=== PATIENT | male | born 1935 | race Caucasian/White ===

== ENCOUNTER → 2017-02-10 | Day surgery (SDC) | payer BC ==
[2017-01-14 14:39] VITALS: Ht 170.2 cm; Wt 90.0 kg
[~2017-02-10] VITALS: Ht 170.2 cm; Wt 90.0 kg
[~2017-02-10] MED LIST: 500ML BSS 0.3ML EPI 1:1000PF IRRIG ONE; ACETAMINOPHEN 325 MG TAB PO PRN; AMVISC PLUS 0.8ML SYRINGE INT OCU ONE; ASPCH81X PO; ATROPINE SULFATE 0.1 MG/ML 5ML SYR IV PRN; ATV/2 PO; BETAXOLOL HCL 0.25% OP SUSP PER DROP CHARGE OPL SCH; BISA5TAB PO; BRIMONIDINE TART 0.2% OP SOLN PER DROP CHARGE ONE; BSS FLUSH ONE; CITA40TA4 PO; ENDOCOAT 0.85ML SYRINGE INT OCU ONE; EpHEDrine SULFATE INJ 50 MG/ML AMP IV PRN; EpINEphrine INJ 1MG/ML AMP 1 MG/ML AMP ONE; FENTANYL CITRATE INJ 50 MCG/1 ML 2 ML VIAL IV PRN; FLUMAZENIL 0.1 MG/1 ML 10 ML VIAL IV PRN; GLUC100014 PO; HYDROmorphone INJ 2 MG/ML SYR/VIAL IV PRN; LABETALOL HCL IV 5 MG/ML 20ML IV PRN; LACTATED RINGER'S 1000ML 500 ML IV SCH; LIDOCAINE 4% OP SOLN DROP CHARGE ONE; LIDOCAINE 4% OP SOLN DROP CHARGE OPL SCH; LIDOCAINE HCL 1% MPF 2 ML VIAL ONE; MEPERIDINE HCL 25 MG/ML CARP IV PRN; MIDAZOLAM HCL 1 MG/ML 2ML VIAL ONE; MIX: 4ML BSS 1ML EPI 1:1000 PF INSTIL ONE; MOXIFLOXACIN OPH SOLN PER DROP CHARGE ONE; MULT-506 PO; NALOXONE HCL 0.4 MG/1 ML VIAL/CARP IV PRN; NURSING VERBAL MED ORDER ONE; OCUCOAT 1 ML SOLN IO ONE; ONDANSETRON INJ 2 MG/ML 2 ML VIAL IV PRN; PANT40TA PO; PHENYLEPHRINE 100MCG/ML 5ML SYR IV PRN; POVIDONE-IODINE OP SOLN 30 ML BTL ONE; PROPARACAINE 0.5% OP SOLN PER DROP CHARGE OPL SCH; SIMV40TA2 PO; SPRIN/30 INH; TELM40TA11 PO; TOBRAMYCIN/DEXAMETHASONE OPH OINT PER APPLN CHARGE ONE
[2017-02-10] MEDS: TROPICAMIDE 1% OP SOLN PER DROP CHARGE OPL SCH ×2 (07:27→07:32)
--- NOTE | 2017-02-10 07:27 | History & Physical Bridge - [place] ---
H&P Re-Evaluation Bridge Note: I have examined the patient, reviewed the History & Physical and in the interval since the performance of the History & Physical I have noted the following changes of clinical significance: No changes noted
[2017-02-10] MEDS: CYCLOPENTOLATE HCL 1% OP SOLN PER DROP CHARGE OPL SCH ×2 (07:28→07:33)
[2017-02-10] MEDS: MOXIFLOXACIN OPH SOLN PER DROP CHARGE OPL SCH ×2 (07:29→07:39)
[2017-02-10] MEDS: PHENYLEPHRINE HCL 2.5% OP SOLN PER DROP CHARGE OPL SCH ×2 (07:31→07:36)
--- NOTE | 2017-02-10 08:20 | Discharge Instructions-SurgCtr ---
Discharge Instructions Date of Service Feb 10, 2017. Visit Reason for Visit: Cataract Left Eye Discharge Discharge Diagnosis / Problem: lens implant left eye Discharge Goals Goal(s): Improve function Activity Recommendations Activity Limitations: resume your previous activity Lifting Limitations: no more than 10 pounds Exercise/Sports Limitations: gradually increase as tolerated May Resume Sexual Activity: when tolerated Shower/Bathe: tomorrow Driving or Machine Use: resume 1 day after discharge Anesthesia . Post Anesthesia Instructions: If you have had General Anesthesia or IV Sedation: * Do not drive today. * Resume driving when surgeon permits. * Do not make important decisions or sign legal documents today. * Call surgeon for: 1. Temperature elevations greater than 101 degrees F. 2. Uncontrollable pain. 3. Excessive bleeding. 4. Persistent nausea and vomiting. 5. Medication intolerance (nausea, vomiting or rash). * For nausea and vomiting use only clear liquids such as: tea, soda, bouillon until nausea subsides, then gradually increase diet as tolerated. * If you have any concerns or questions, call your surgeon's office. If physician is unavailable and it is an emergency, call 911 or go to the nearest emergency room. . Instructions / Follow-Up Instructions / Follow-Up ACTIVITY RECOMMENDATIONS: * Light activities. * Mild irritation and blurred vision are common for the first few days. * You may walk outside, read, watch television. * Redness around the white part of the eye is common. MEDICATIONS: Resume previous medications unless instructed otherwise by your surgeon. Start all eye drops at 1 pm today: * Eye drops (today and tomorrow): Prednisone - one drop in operative eye every 3 hours while awake Ofloxacin - one drop in operative eye every 3 hours while awake SPECIAL CARE INSTRUCTIONS: * Tape plastic shield over eye to sleep at night. Call your doctor at with any concerns or problems. FOLLOW UP VISIT: Follow-up with Dr Gilmore at [place] office as scheduled. Diet Recommendations Home Diet: no limitations Procedures Procedures Performed: cataract extraction with lens implant Pending Studies Studies pending at discharge: no Medical Emergencies . Who to Call and When: Medical Emergencies: If at any time you feel your situation is an emergency, please call 911 immediately. . Non-Emergent Contact Non-Emergency issues call your: Rock Cutter Call Non-Emergent contact if: your pain is not controlled [phone] . . "Provider Documentation" section prepared by Rogelio Gilmore. .
--- NOTE | 2017-02-10 08:22 | [facility] Operative Report ---
Operative Report Date of Service Feb 10, 2017. Operative Report 1. PREOPERATIVE DIAGNOSIS: Senile nuclear cataract, left eye. 2. POSTOPERATIVE DIAGNOSIS: Senile nuclear cataract, left eye. 3. PROCEDURE: Phacoemulsification of left cataract with posterior chamber lens implant, type Bausch & Lomb, model Hoya [id number], power +23.0 diopters. ANESTHESIA: Local standby. SURGEON: Dr. Gilmore. COMPLICATIONS: None. OPERATING TIME: 10 minutes. 4. OPERATION AND FINDINGS: DESCRIPTION OF PROCEDURE: The left pupil was dilated. The anesthetic was administered using a topical technique. The left eye was prepped and draped. A speculum was placed. A clear corneal incision was formed. The chamber was filled with Amvisc Plus and Endocoat. Epinephrine solution was used. A paracentesis was placed. A capsulorrhexis was performed. The nucleus was hydrodissected. The lens was removed with phacoemulsification. Time was 5.82 seconds. The aspiration unit was used to remove the cortex. The capsule was filled with Amvisc Plus. The lens implant was folded and placed into the capsule. The incision was hydrated. The Amvisc was aspirated. The wound was secure. The chamber was deep. The pupil was round. Brimonidine, TobraDex ointment and Vigamox solution were placed. The speculum was removed. The patient was returned to the Recovery Room in stable condition. I attest to the content of the Intraoperative Record and any orders documented therein. Any exceptions are noted below. The scribe's documentation has been prepared in my presence, under my direction and personally reviewed by me in its entirety. I confirm that the note above accurately reflects all work, treatment, procedures, and medical decision making performed by me. I personally scribed for Rogelio Gilmore M.D. (HAJA) on 02/10/17 at 08:22. Electronically submitted by Indira Iraheta ([email or web address]).
[2017-02-10 08:23] VITALS: TEMP 36.6
[2017-02-10 08:43] VITALS: BP 123/61; PULSE 54; O2SAT 97
--- NOTE | 2017-02-10 08:48 | Anesthesia Progress Nt - [facility] ---
Anesthesia Post Op Note Date & Time Feb 10, 2017 at 08:47 Vital Signs Pain Intensity: 0 Vital Signs Past 12 Hours Date Time Temp Pulse Resp B/P (MAP) Pulse Ox O2 Delivery O2 Flow Rate FiO2 02/10/17 08:43 54 16 123/61 (81) 97 Room Air 02/10/17 08:23 36.6 56 16 123/63 (83) 96 Room Air 02/10/17 07:13 36.5 65 16 120/74 (89) 97 Room Air Notes Mental Status: alert / awake / arousable, participated in evaluation Pt Amnestic to Procedure: Yes Nausea / Vomiting: adequately controlled Pain: adequately controlled Airway Patency, RR, SpO2: stable & adequate BP & HR: stable & adequate Hydration State: stable & adequate Anesthetic Complications: no major complications apparent
== END | disposition home or self-care (01) ==
LOC: X.SURG 06:58
PROVIDERS: ATTEND Specialist
DX: H25.12 Age-related nuclear cataract, left eye (principal); I10 Essential (primary) hypertension; I51.9 Heart disease, unspecified; Z79.82 Long term (current) use of aspirin

== ENCOUNTER → 2017-03-10 | Day surgery (SDC) | payer BC ==
[2017-03-03 14:52] VITALS: Ht 170.2 cm; Wt 87.3 kg
[~2017-03-10] VITALS: Ht 170.2 cm; Wt 87.3 kg
[~2017-03-10] MED LIST changes: -BETAXOLOL HCL 0.25% OP SUSP PER DROP CHARGE OPL SCH; +BETAXOLOL HCL 0.25% OP SUSP PER DROP CHARGE OPR SCH; -EpHEDrine SULFATE INJ 50 MG/ML AMP IV PRN; -FENTANYL CITRATE INJ 50 MCG/1 ML 2 ML VIAL IV PRN; -FLUMAZENIL 0.1 MG/1 ML 10 ML VIAL IV PRN; -HYDROmorphone INJ 2 MG/ML SYR/VIAL IV PRN; -LABETALOL HCL IV 5 MG/ML 20ML IV PRN; -LIDOCAINE 4% OP SOLN DROP CHARGE OPL SCH; +LIDOCAINE 4% OP SOLN DROP CHARGE OPR SCH; -MEPERIDINE HCL 25 MG/ML CARP IV PRN; -NALOXONE HCL 0.4 MG/1 ML VIAL/CARP IV PRN; -NURSING VERBAL MED ORDER ONE; +OFLO0.3S OPR; -ONDANSETRON INJ 2 MG/ML 2 ML VIAL IV PRN; -PHENYLEPHRINE 100MCG/ML 5ML SYR IV PRN; +PRED1SUS3 OPR; -PROPARACAINE 0.5% OP SOLN PER DROP CHARGE OPL SCH; +PROPARACAINE 0.5% OP SOLN PER DROP CHARGE OPR SCH
[2017-03-10] MEDS: PHENYLEPHRINE HCL 2.5% OP SOLN PER DROP CHARGE OPR SCH ×2 (09:03→09:08)
[2017-03-10] MEDS: TROPICAMIDE 1% OP SOLN PER DROP CHARGE OPR SCH ×2 (09:04→09:09)
[2017-03-10] MEDS: CYCLOPENTOLATE HCL 1% OP SOLN PER DROP CHARGE OPR SCH ×2 (09:05→09:10)
[2017-03-10] MEDS: MOXIFLOXACIN OPH SOLN PER DROP CHARGE OPR SCH ×2 (09:06→09:16)
--- NOTE | 2017-03-10 10:18 | Discharge Instructions-SurgCtr ---
Discharge Instructions Date of Service Mar 10, 2017. Visit Reason for Visit: Cataract Right Eye Discharge Discharge Diagnosis / Problem: lens implant right eye Discharge Goals Goal(s): Improve function Activity Recommendations Activity Limitations: resume your previous activity Lifting Limitations: no more than 10 pounds Exercise/Sports Limitations: gradually increase as tolerated May Resume Sexual Activity: when tolerated Shower/Bathe: tomorrow Driving or Machine Use: resume 1 day after discharge Anesthesia . Post Anesthesia Instructions: If you have had General Anesthesia or IV Sedation: * Do not drive today. * Resume driving when surgeon permits. * Do not make important decisions or sign legal documents today. * Call surgeon for: 1. Temperature elevations greater than 101 degrees F. 2. Uncontrollable pain. 3. Excessive bleeding. 4. Persistent nausea and vomiting. 5. Medication intolerance (nausea, vomiting or rash). * For nausea and vomiting use only clear liquids such as: tea, soda, bouillon until nausea subsides, then gradually increase diet as tolerated. * If you have any concerns or questions, call your surgeon's office. If physician is unavailable and it is an emergency, call 911 or go to the nearest emergency room. . Instructions / Follow-Up Instructions / Follow-Up ACTIVITY RECOMMENDATIONS: * Light activities. * Mild irritation and blurred vision are common for the first few days. * You may walk outside, read, watch television. * Redness around the white part of the eye is common. MEDICATIONS: Resume previous medications unless instructed otherwise by your surgeon. Start all eye drops at 1 pm today: * Eye drops (today and tomorrow): Prednisone - one drop in operative eye every 3 hours while awake Ofloxacin - one drop in operative eye every 3 hours while awake SPECIAL CARE INSTRUCTIONS: * Tape plastic shield over eye to sleep at night. Call your doctor at with any concerns or problems. FOLLOW UP VISIT: Follow-up with Dr Gilmore at [place] office as scheduled. Diet Recommendations Home Diet: no limitations Procedures Procedures Performed: cataract extraction with lens implant Pending Studies Studies pending at discharge: no Medical Emergencies . Who to Call and When: Medical Emergencies: If at any time you feel your situation is an emergency, please call 911 immediately. . Non-Emergent Contact Non-Emergency issues call your: Seismic Survey Assistant Call Non-Emergent contact if: your pain is not controlled [phone] . . "Provider Documentation" section prepared by Rogelio Gilmore. .
--- NOTE | 2017-03-10 10:21 | [facility] Operative Report ---
Operative Report Date of Service Mar 10, 2017. Operative Report 1. PREOPERATIVE DIAGNOSIS: Senile nuclear cataract, right eye. 2. POSTOPERATIVE DIAGNOSIS: Senile nuclear cataract, right eye. 3. PROCEDURE: Phacoemulsification of right cataract with posterior chamber lens implant, type Bausch & Lomb, model Hoya [id number], power +22.5 diopters. ANESTHESIA: Local standby. SURGEON: Dr. Gilmore. COMPLICATIONS: None. OPERATING TIME: 10 minutes. 4. OPERATION AND FINDINGS: DESCRIPTION OF PROCEDURE: The right pupil was dilated. The anesthetic was administered using a topical technique. The right eye was prepped and draped. A speculum was placed. A clear corneal incision was formed. The chamber was filled with Amvisc Plus and Endocoat. Epinephrine solution was used. A paracentesis was placed. A capsulorrhexis was performed. The nucleus was hydrodissected. The lens was removed with phacoemulsification. Time was 3.99 seconds. The aspiration unit was used to remove the cortex. The capsule was filled with Amvisc Plus. The lens implant was folded and placed into the capsule. The incision was hydrated. The Amvisc was aspirated. The wound was secure. The chamber was deep. The pupil was round. Brimonidine, TobraDex ointment and Vigamox solution were placed. The speculum was removed. The patient was returned to the Recovery Room in stable condition. I attest to the content of the Intraoperative Record and any orders documented therein. Any exceptions are noted below. The scribe's documentation has been prepared in my presence, under my direction and personally reviewed by me in its entirety. I confirm that the note above accurately reflects all work, treatment, procedures, and medical decision making performed by me. I personally scribed for Rogelio Gilmore M.D. ([email or web address]) on 03/10/17 at 10:21. Electronically submitted by Indira Iraheta ([email or web address]).
[2017-03-10 10:23] VITALS: TEMP 36.5
--- NOTE | 2017-03-10 10:34 | Anesthesiology Progress Note ---
Anesthesia Post Op Note Date & Time Mar 10, 2017 at 10:34 Vital Signs Pain Intensity: 0 Vital Signs Past 12 Hours Date Time Temp Pulse Resp B/P (MAP) Pulse Ox O2 Delivery O2 Flow Rate FiO2 03/10/17 08:53 36.5 75 16 112/73 (86) 98 Room Air Notes Mental Status: alert / awake / arousable, participated in evaluation Nausea / Vomiting: adequately controlled Pain: adequately controlled Airway Patency, RR, SpO2: stable & adequate BP & HR: stable & adequate Hydration State: stable & adequate Anesthetic Complications: no major complications apparent
[2017-03-10 10:40] VITALS: BP 145/81; PULSE 60; O2SAT 96
== END | disposition home or self-care (01) ==
LOC: X.SURG 08:17
PROVIDERS: ATTEND Specialist
DX: H25.11 Age-related nuclear cataract, right eye (principal); I10 Essential (primary) hypertension; E78.5 Hyperlipidemia, unspecified; J44.9 Chronic obstructive pulmonary disease, unspecified; M19.90 Unspecified osteoarthritis, unspecified site; K21.9 Gastro-esophageal reflux disease without esophagitis; K44.9 Diaphragmatic hernia without obstruction or gangrene; E66.9 Obesity, unspecified; Z79.82 Long term (current) use of aspirin; Z98.42 Cataract extraction status, left eye; F32.9 Major depressive disorder, single episode, unspecified; F17.200 Nicotine dependence, unspecified, uncomplicated

== ENCOUNTER 2017-08-20 14:39 | Emergency (ER) | payer BC ==
[~2017-08-20] VITALS: Ht 175.3 cm; Wt 84.0 kg
[~2017-08-20 14:39] MED LIST changes: -500ML BSS 0.3ML EPI 1:1000PF IRRIG ONE; -ACETAMINOPHEN 325 MG TAB PO PRN; -AMVISC PLUS 0.8ML SYRINGE INT OCU ONE; -ATROPINE SULFATE 0.1 MG/ML 5ML SYR IV PRN; -BETAXOLOL HCL 0.25% OP SUSP PER DROP CHARGE OPR SCH; -BRIMONIDINE TART 0.2% OP SOLN PER DROP CHARGE ONE; -BSS FLUSH ONE; -ENDOCOAT 0.85ML SYRINGE INT OCU ONE; -EpINEphrine INJ 1MG/ML AMP 1 MG/ML AMP ONE; -LACTATED RINGER'S 1000ML 500 ML IV SCH; -LIDOCAINE 4% OP SOLN DROP CHARGE ONE; -LIDOCAINE 4% OP SOLN DROP CHARGE OPR SCH; -LIDOCAINE HCL 1% MPF 2 ML VIAL ONE; -MIDAZOLAM HCL 1 MG/ML 2ML VIAL ONE; -MIX: 4ML BSS 1ML EPI 1:1000 PF INSTIL ONE; -MOXIFLOXACIN OPH SOLN PER DROP CHARGE ONE; -OCUCOAT 1 ML SOLN IO ONE; -POVIDONE-IODINE OP SOLN 30 ML BTL ONE; -PROPARACAINE 0.5% OP SOLN PER DROP CHARGE OPR SCH; -TOBRAMYCIN/DEXAMETHASONE OPH OINT PER APPLN CHARGE ONE
[2017-08-20 14:47] VITALS: TEMP 36.5; Ht 175.3 cm; Wt 84.0 kg
[2017-08-20] MEDS ORDERED: SODIUM CHLORIDE 0.9% 1000ML 1,000 ML IV STA (15:33)
--- NOTE | 2017-08-20 15:38 | EMERGENCY ROOM VISIT NOTE ---
History Report prepared by [place]: Sai Beckman Under the Supervision of: Dr. Rogelio Tracey D.O. First contact with patient: 15:29 Chief Complaint: URINARY SYMPTOMS Stated Complaint: URINARY PROBLEMS Nursing Triage Summary: pt unable to void since last pm and no bm x 3 days. denies any vomiting. having abd pains. no hx of same. History of Present Illness The patient is an 82 year old male who presents to the Emergency Room with complaints of a persistent inability to void that started last night. Per the patient's , the patient has not urinated since last night, and even last night the output was very little. The patient states that she feels like he has to go, and he is having associated abdominal pain and distension. He notes that he has never seen a urologist before. The patient's called the patient's primary care office, and talked to a nurse who told the patient to come here to get catheterized. The patient adds that he has not had a bowel movement in 3 days. He denies any nausea, vomiting, chest pain, shortness of breath, fevers, chills, numbness, or new weakness in his legs. He states that he has not been eating or drinking okay recently. The patient notes no history of prostate problems. Source of History: patient, spouse/significant other Onset: Last night Position: other (global) Symptom Intensity: has not urinated since last night Quality: other (inability to urinate) Timing: other (persistent) Associated Symptoms: + abdominal pain (and distension), No fevers, No chills , No chest pain, No SOB, No nausea, No vomiting, No weakness (no new), No numbness Note: Has not had a bowel movement in 3 days. Review of Systems See HPI for pertinent positives & negatives. A total of 10 systems reviewed and were otherwise negative. Past Medical & Surgical Medical Problems: (1) Abdom Aortic Aneurysm (2) Cerebral Atherosclerosis (3) Hypertension Nos (4) Irritable Bowel Syndrome (5) Long-Term (Current) Use Of Aspirin (6) Osteoarthro Nos-Oth Site Family History Patient reports no known family medical history. Social History Smoking Status: Current Every Day Smoker Alcohol Use: occasionally Marital Status: Housing Status: lives with significant other Occupation Status: retired Current/Historical Medications Scheduled Aspirin (Aspirin Chewable), 81 MG PO QAM Bisacodyl (Ex-Lax Ultra), 1 TAB PO HS Ciprofloxacin Hcl (Cipro), 500 MG PO BID Citalopram (Citalopram Hydrobromide), 1 TAB PO QAM Glucosamine Sulfate (Glucosamine), 1 CAP PO QAM Ibuprofen (Advil), 400 MG PO QAM Lorazepam (Ativan), 1 TAB PO TID Multivitamin (Multivitamin), 1 TAB PO QAM Pantoprazole (Protonix), 40 MG PO BID Polyethylene Glycol 3350 (Miralax), 17 GM PO DAILY Simvastatin (Zocor), 80 MG PO QPM Tamsulosin Hcl (Flomax), 0.4 MG PO DAILY Telmisartan (Micardis), 20 MG PO QAM Allergies Coded Allergies: Iodinated Diagnostic Agents (Verified Allergy, Unknown, HIVES, 03/10/17) Pseudoephedrine (Verified Allergy, Unknown, UNSURE OF RX?, 03/10/17) Sulfa Antibiotics (Verified Allergy, Unknown, DOES NOT KNOW RX, 03/10/17) Physical Exam Vital Signs Date Time Temp Pulse Resp B/P (MAP) Pulse Ox O2 Delivery O2 Flow Rate FiO2 08/20/17 17:50 93 18 145/68 91 Room Air 08/20/17 17:02 79 18 133/64 94 Room Air 08/20/17 14:47 36.5 118 16 111/61 95 Room Air Physical Exam GENERAL: Patient is awake, alert, and in no acute distress. Patient is resting comfortably and showing no signs of anxiety EYES: The conjunctivae are clear. The pupils are round and reactive. EARS, NOSE, MOUTH AND THROAT: The nose is without any evidence of any deformity. Mucous membranes are dry tongue is midline NECK: The neck is nontender and supple. RESPIRATORY: Normal respiratory effort is noted there is no evidence of wheezing rhonchi or rales CARDIOVASCULAR: Regular rate and rhythm noted there no murmurs rubs or gallops normal S1 normal S2 GASTROINTESTINAL: The abdomen is moderately distended with suprapubic tenderness to palpation. No guarding or rigidity. MUSCULOSKELETAL/EXTREMITIES: There is no evidence of gross deformity full range of motion is noted in the hips and shoulders SKIN: There is no obvious evidence of any rash. There are no petechiae, pallor or cyanosis noted. NEUROLOGIC: Patient is awake alert and oriented x3 strength is symmetric patellar reflexes are 2+ bilaterally Medical Decision & Procedures ER Provider Diagnostic Interpretation: CT results as stated below per my review and radiologist interpretation. ABD/PELVIS NO IV OR ORAL CONT CLINICAL HISTORY: 82 years-old Male presenting with urinary symptoms. TECHNIQUE: Multidetector CT of the abdomen and pelvis was performed without the use of intravenous contrast. IV contrast: None. A dose lowering technique was used consistent with the principles of ALARA (as low as reasonably achievable). COMPARISON: 09/25/2015. CT DOSE (mGy.cm): The estimated cumulative dose is 422.11 mGy.cm. FINDINGS: Rotoprinter topogram: Surgical clips project over the mid abdomen. Lung bases: Minimal basilar opacities, likely atelectasis. Calcified pleural plaque evident on the right. Top normal heart size. No pericardial or pleural effusion. Liver: Normal morphology. Density consistent with hepatic steatosis. Biliary: No gross biliary ductal dilatation allowing for noncontrast technique. Normal gallbladder. Pancreas: Mild parenchymal atrophy. Spleen: Normal. Adrenal glands: Normal. Kidneys and ureters: Extensive perinephric fat stranding, nonspecific and unchanged from prior. No nephrolithiasis or hydronephrosis. Well-defined hypodensity arising from the lower pole of the left kidney likely cyst. Ureters normal. Bladder: Incompletely evaluated secondary to underdistention. A Huertas catheter decompresses the urinary bladder. Significant bladder wall irregularity could suggest underlying wall thickening or diverticula. Pelvic organs: Prostate enlargement likely secondary to benign prostatic hyperplasia. Bowel: Moderate stool burden in the rectum and sigmoid colon. Mild stool burden more proximally. The appendix is normal. No bowel obstruction. Peritoneal cavity: No free fluid or intraperitoneal gas. Lymph nodes: No enlarged lymph nodes in the abdomen or pelvis. Vasculature: Atherosclerosis of the normal caliber abdominal aorta. Surgical clips noted in the aortocaval region immediately inferior to the renal vessels. This is unchanged. Abdominal wall: Normal. Musculoskeletal: Degenerative changes of the spine. IMPRESSION: 1. The bladder is decompressed with a Huertas catheter. However, there is suggestion of extensive bladder wall thickening and/or bladder diverticula. This could be an indication of chronic bladder outlet obstruction in the setting of prostatomegaly. Correlate with urinalysis to exclude infection. 2. No nephrolithiasis or hydronephrosis. 3. Moderate stool burden in the rectum and sigmoid colon. Disimpaction suggested. 4. Hepatic steatosis. 5. Calcified pleural plaques suggest a history of asbestos exposure. Electronically signed by: Liam King M.D. 08/20/2017 5:03 PM Dictated Date/Time: 08/20/2017 4:56 PM Laboratory Results 08/20/17 16:30 Red Blood Count 4.52, Mean Corpuscular Volume 91.4, Mean Corpuscular Hemoglobin 32.1, Mean Corpuscular Hemoglobin Concent 35.1, Mean Platelet Volume 9.5, Neutrophils (%) (Auto) 93.3, Lymphocytes (%) (Auto) 3.3, Monocytes (%) (Auto) 3.1, Eosinophils (%) (Auto) 0.0, Basophils (%) (Auto) 0.1, Neutrophils # (Auto) 14.86, Lymphocytes # (Auto) 0.52, Monocytes # (Auto) 0.50, Eosinophils # (Auto) 0.00, Basophils # (Auto) 0.02 08/20/17 16:30 Test 08/20/17 16:12 08/20/17 16:30 Urine Color YELLOW Urine Appearance CLEAR (CLEAR) Urine pH 7.5 (4.5-7.5) Urine Specific [place] 1.014 (1.000-1.030) Urine Protein NEG (NEG) Urine Glucose (UA) NEG (NEG) Urine Ketones NEG (NEG) Urine Occult Blood NEG (NEG) Urine Nitrite NEG (NEG) Urine Bilirubin NEG (NEG) Urine Urobilinogen NEG (NEG) Urine Leukocyte Esterase NEG (NEG) White Blood Count 15.93 K/uL (4.8-10.8) Red Blood Count 4.52 M/uL (4.7-6.1) Hemoglobin 14.5 g/dL (14.0-18.0) Hematocrit 41.3 % (42-52) Mean Corpuscular Volume 91.4 fL (80-100) Mean Corpuscular Hemoglobin 32.1 pg (25-34) Mean Corpuscular Hemoglobin Concent 35.1 g/dl (32-36) Platelet Count 207 K/uL (130-400) Mean Platelet Volume 9.5 fL (7.4-10.4) Neutrophils (%) (Auto) 93.3 % Lymphocytes (%) (Auto) 3.3 % Monocytes (%) (Auto) 3.1 % Eosinophils (%) (Auto) 0.0 % Basophils (%) (Auto) 0.1 % Neutrophils # (Auto) 14.86 K/uL (1.4-6.5) Lymphocytes # (Auto) 0.52 K/uL (1.2-3.4) Monocytes # (Auto) 0.50 K/uL (0.11-0.59) Eosinophils # (Auto) 0.00 K/uL (0-0.5) Basophils # (Auto) 0.02 K/uL (0-0.2) RDW Standard Deviation 42.8 fL (36.4-46.3) RDW Coefficient of Variation 12.8 % (11.5-14.5) Immature Granulocyte % (Auto) 0.2 % Immature Granulocyte # (Auto) 0.03 K/uL (0.00-0.02) Anion Gap 4.0 mmol/L (3-11) Est Creatinine Clear Calc Drug Dose 33.3 ml/min Estimated GFR () 42.9 Estimated GFR (Non- 37.0 BUN/Creatinine Ratio 11.4 (10-20) Calcium Level 9.7 mg/dl (8.5-10.1) Total Bilirubin 1.5 mg/dl (0.2-1) Aspartate Amino Transf (AST/SGOT) 15 U/L (15-37) Alanine Aminotransferase (ALT/SGPT) 20 U/L (12-78) Alkaline Phosphatase 42 U/L (45-117) Total Protein 6.7 gm/dl (6.4-8.2) Albumin 3.7 gm/dl (3.4-5.0) Globulin 3.0 gm/dl (2.5-4.0) Albumin/Globulin Ratio 1.2 (0.9-2) Date/Time Source Procedure Growth Status 08/20/17 16:12 Urine,Catheterized Urine Culture - Final NO GROWTH - LESS THAN 1,000 COLONIES/ML Complete Laboratory results per my review. Medications Administered Medications (Trade) Dose Ordered Sig/Romy Route Start Time Stop Time Status Last Admin Dose Admin Sodium Chloride 1,000 ml @ 999 mls/hr Q1H1M STAT IV 08/20/17 15:33 08/20/17 16:33 DC 08/20/17 15:33 999 MLS/HR Tamsulosin HCl (Flomax Cap) 0.4 mg NOW ONCE PO 08/20/17 16:30 08/20/17 16:31 DC 08/20/17 16:30 0.4 MG Ciprofloxacin (Cipro Tab) 500 mg NOW STAT PO 08/20/17 17:42 08/20/17 17:43 DC 08/20/17 17:52 500 MG ED Course 1532: The patient was evaluated in room C8. A complete history and physical examination were performed. 1533: NSS 1000 ml @ 999 mls/hr IV. 1630: Flomax Cap 0.4 mg PO. 1740: Upon reevaluation, the patient is resting. I discussed the results and treatment plan with him. He verbalized agreement of the treatment plan. He was discharged home. 174: Cipro Tab 500 mg PO. Medical Decision Differential diagnosis: Etiologies such as appendicitis, diverticulitis, PUD, biliary pathology, UTI, pancreatitis, obstruction, mesenteric ischemia, aortic pathology, infections, inflammatory bowel disease, renal colic, as well as others were entertained. Nursing notes reviewed. Additional history is obtained from the patient's significant other. The patient is an 82-year-old male who presented to the emergency department for an evaluation of difficulty urinating. The patient was found to be in urinary retention. He has an enlarged prostate. He was also found to have significant fecal impaction. Likely the impaction is secondary to the patient' s urinary retention. He was treated with Huertas catheter. He was also treated with IV fluids. The patient was able to have a large bowel movement after the Huertas catheter was placed. He was encouraged to follow-up with urology for reevaluation. He was also started on Flomax as well as an antibiotic. He was also encouraged to use a leg bag and return to the emergency department immediately if symptoms change worsen or the need arises. Medication Reconcilliation Current Medication List: was personally reviewed by me Blood Pressure Screening Patient's blood pressure: Normal blood pressure Impression Primary Impression: Urinary retention Additional Impressions: Fecal impaction Enlarged prostate Scribe Attestation The scribe's documentation has been prepared under my direction and personally reviewed by me in its entirety. I confirm that the note above accurately reflects all work, treatment, procedures, and medical decision making performed by me. Departure Information Dispostion Home / Self-Care Prescriptions Polyethylene Glycol 3350 (MIRALAX) 1 Pow Pow 17 GM PO DAILY, #527 GM Prov: Rogelio Tracey, DO 08/20/17 Tamsulosin Hcl (FLOMAX) 0.4 Mg Cap 0.4 MG PO DAILY, #30 CAP Prov: Rogelio Tracey, DO 08/20/17 Ciprofloxacin Hcl (CIPRO) 500 Mg Tab 500 MG PO BID, #20 TAB Prov: Rogelio Tracey, DO 08/20/17 Referrals Marlin Lew M.D. (MEDICAL) (PCP) Patient Instructions Constipation, ED Catheter Care Huertas, ED Retention Urinary Male, [facility] Additional Instructions Schedule a follow-up appointment with the urologist. Continue all medications as prescribed. Drink plenty clear liquids. Return to the emergency department immediately if symptoms change worsen or the need arises. Problem Qualifiers
[2017-08-20] MEDS ORDERED: TAMSULOSIN HCL 0.4 MG CAP PO ONE (16:30)
[2017-08-20 16:40] LABS: BASO % 0.1 %; BASO ABS # 0.02 K/uL (0-0.2); HEMATOCRIT 41.3 % (42-52); HEMOGLOBIN 14.5 g/dL (14.0-18.0); IG# 0.03 K/uL (0.00-0.02); LYMPH % 3.3 %; LYMPH ABS # 0.52 K/uL (1.2-3.4); MEAN CELL VOLUME 91.4 fL (80-100); MEAN CORPUSCULAR HEMOGLOBIN 32.1 pg (25-34); MEAN CORPUSCULAR HGB CONC 35.1 g/dl (32-36); MEAN PLATELET VOLUME 9.5 fL (7.4-10.4); MONO % 3.1 %; NEUT % 93.3 %; NEUT ABS # 14.86 K/uL (1.4-6.5); PLATELET COUNT 207 K/uL (130-400); RED CELL DISTRIBUTION WIDTH CV 12.8 % (11.5-14.5); RED CELL DISTRIBUTION WIDTH SD 42.8 fL (36.4-46.3); WHITE BLOOD COUNT 15.93 K/uL (4.8-10.8)
[2017-08-20] MEDS ORDERED: IBUP-1050 PO (16:40)
[2017-08-20 16:57] LABS: ALBUMIN 3.7 gm/dl (3.4-5.0); CALCIUM 9.7 mg/dl (8.5-10.1); CREATININE 1.68 mg/dl (0.60-1.40); POTASSIUM 4.1 mmol/L (3.5-5.1)
[2017-08-20 17:02] LABS: TOTAL PROTEIN 6.7 gm/dl (6.4-8.2)
--- NOTE | 2017-08-20 17:04 | DIAGNOSTIC IMAGING REPORT ---
ABD/PELVIS NO IV OR ORAL CONT CLINICAL HISTORY: 82 years-old Male presenting with urinary symptoms. TECHNIQUE: Multidetector CT of the abdomen and pelvis was performed without the use of intravenous contrast. IV contrast: None. A dose lowering technique was used consistent with the principles of ALARA (as low as reasonably achievable). COMPARISON: 09/25/2015. CT DOSE (mGy.cm): The estimated cumulative dose is 422.11 mGy.cm. 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 Lung bases: Minimal basilar opacities, likely atelectasis. Calcified pleural plaque evident on the right. Top normal heart size. No pericardial or pleural effusion. Liver: Normal morphology. Density consistent with hepatic steatosis. Biliary: No gross biliary ductal dilatation allowing for noncontrast technique. Normal gallbladder. Pancreas: Mild parenchymal atrophy. Spleen: Normal. Adrenal glands: Normal. Kidneys and ureters: Extensive perinephric fat stranding, nonspecific and unchanged from prior. No nephrolithiasis or hydronephrosis. Well-defined hypodensity arising from the lower pole of the left kidney likely cyst. Ureters normal. Bladder: Incompletely evaluated secondary to underdistention. A Huertas catheter decompresses the urinary bladder. Significant bladder wall irregularity could suggest underlying wall thickening or diverticula. Pelvic organs: Prostate enlargement likely secondary to benign prostatic hyperplasia. Bowel: Moderate stool burden in the rectum and sigmoid colon. Mild stool burden more proximally. The appendix is normal. No bowel obstruction. Peritoneal cavity: No free fluid or intraperitoneal gas. Lymph nodes: No enlarged lymph nodes in the abdomen or pelvis. Vasculature: Atherosclerosis of the normal caliber abdominal aorta. Surgical clips noted in the aortocaval region immediately inferior to the renal vessels. This is unchanged. Abdominal wall: Normal. Musculoskeletal: Degenerative changes of the spine. IMPRESSION: 1. The bladder is decompressed with a Huertas catheter. However, there is suggestion of extensive bladder wall thickening and/or bladder diverticula. This could be an indication of chronic bladder outlet obstruction in the setting of prostatomegaly. Correlate with urinalysis to exclude infection. 2. No nephrolithiasis or hydronephrosis. 3. Moderate stool burden in the rectum and sigmoid colon. Disimpaction suggested. 4. Hepatic steatosis. 5. Calcified pleural plaques suggest a history of asbestos exposure. Electronically signed by: Liam King M.D. 08/20/2017 5:03 PM Dictated Date/Time: 08/20/2017 4:56 PM
[2017-08-20] MEDS ORDERED: CIPROFLOXACIN 500 MG TAB PO STA (17:42)
[2017-08-20] MEDS ORDERED: CIPR-255 PO (17:45)
[2017-08-20] MEDS ORDERED: TAMS0.4C38 PO (17:45)
[2017-08-20] MEDS ORDERED: POLY335019 PO (17:46)
[2017-08-20 17:50] VITALS: BP 145/68; PULSE 93; O2SAT 91
== END 2017-08-20 18:19 | disposition home or self-care (01) ==
LOC: C.EDB 14:41 → C.EDC 18:19
DX: R33.9 Retention of urine, unspecified (principal); K56.41 Fecal impaction; N40.0 Benign prostatic hyperplasia without lower urinary tract symptoms; I10 Essential (primary) hypertension; K58.9 Irritable bowel syndrome, unspecified; M19.90 Unspecified osteoarthritis, unspecified site; I67.2 Cerebral atherosclerosis; I71.4 Abdominal aortic aneurysm, without rupture; F17.210 Nicotine dependence, cigarettes, uncomplicated; Z79.82 Long term (current) use of aspirin; Z79.899 Other long term (current) drug therapy; Z91.041 Radiographic dye allergy status; Z88.2 Allergy status to sulfonamides; Z88.8 Allergy status to other drugs, medicaments and biological substances

== ENCOUNTER 2019-05-26 23:01 | Observation (INO) ==
[2019-05-26] MEDS ORDERED: MoRPHine SULFATE 4 MG/ML 1 ML CARP\\VIAL IV STA (23:26)
[2019-05-26 23:50] LABS: Basophils # (auto) 0.05 K/uL (0-0.2); Basophils % (auto) 0.7 %; Eosinophils # (auto) 0.13 K/uL (0-0.5); Eosinophils % (auto) 1.8 %; Hematocrit (blood only) 41.9 % (42-52); Immature Granulocytes # (auto) 0.01 K/uL (0.00-0.02); Immature Granulocytes % (auto) 0.1 %; Lymphocytes # (auto) 1.35 K/uL (1.2-3.4); Lymphocytes % (auto) 18.4 %; Mean Corpuscular Hemoglobin 31.9 pg (25-34); Mean Corpuscular Hgb Conc 33.4 g/dL (32-36); Mean Corpuscular Volume 95.4 fL (80-100); Mean Platelet Volume 9.7 fL (7.4-10.4); Monocytes # (auto) 0.68 K/uL (0.11-0.59); Monocytes % (auto) 9.3 %; Neutrophils # (auto) 5.13 K/uL (1.4-6.5); Neutrophils % (auto) 69.7 %; Platelet Count 217 K/uL (130-400); RDW Coefficient of Variation 12.5 % (11.5-14.5); RDW Standard Deviation 43.3 fL (36.4-46.3); Red Blood Count 4.39 M/uL (4.7-6.1); White Blood Count 7.35 K/uL (4.8-10.8)
[2019-05-27 00:08] LABS: Alanine Aminotransferase 18 U/L (12-78); Albumin Level 3.4 gm/dl (3.4-5.0); Aspartate Aminotransferase 14 U/L (15-37); BUN Creatinine Ratio 16.3 (10-20); Bilirubin Direct 0.1 mg/dl (0-0.2); Blood Urea Nitrogen 24 mg/dl (7-18); Calcium 8.8 mg/dl (8.5-10.1); Carbon Dioxide 29 mmol/L (21-32); Chloride 109 mmol/L (98-107); Creatinine Clr Calc Pharmacy 38.1 ml/min; Est GFR (African American) 49.2; Est GFR (Non-African American) 42.5; Glucose 94 mg/dl (70-99); Magnesium 2.2 mg/dl (1.8-2.4); Potassium 4.1 mmol/L (3.5-5.1); Sodium 137 mmol/L (136-145)
[2019-05-27 00:14] LABS: Alkaline Phosphatase 46 U/L (45-117); Bilirubin,Total 0.5 mg/dl (0.2-1); Creatine Kinase 100 U/L (39-308); Total Protein 6.5 gm/dl (6.4-8.2); Troponin I < 0.015 ng/ml (0-0.045)
[2019-05-27] MEDS ORDERED: SODIUM CHLORIDE 0.9% 1000ML 500 ML IV ONE (00:14)
[2019-05-27] MEDS ORDERED: MoRPHine SULFATE 4 MG/ML 1 ML CARP\\VIAL IV STA (00:33)
[2019-05-27] MEDS ORDERED: ALBUTEROL 0.083% NEBU SOLN 3 ML VIAL INH PRN (02:06)
[2019-05-27] MEDS ORDERED: ONDANSETRON INJ 2 MG/ML 2 ML VIAL IV PRN (02:06)
[2019-05-27] MEDS ORDERED: NON-FORMULARY MEDICATION (Glucosam-Chond-Msm1-C-Mang-Bor [Glucosamine-Chond-Msm Complex] 1 PO SCH (02:06)
[2019-05-27] MEDS ORDERED: POLYETHYLENE (MIRALAX) 17 GM PACK PO PRN (02:06)
[2019-05-27] MEDS ORDERED: MoRPHine SULFATE 4 MG/ML 1 ML CARP\\VIAL IV PRN (02:06)
[2019-05-27] MEDS ORDERED: NITROGLYCERIN SL 0.4 MG/TAB TAB SL PRN (02:06)
[2019-05-27] MEDS ORDERED: TRIAMCINOLONE ACET 0.5% CR 15 GM TUBE TOP PRN (02:06)
--- NOTE | 2019-05-27 03:40 | Emergency Department Note ---
Entered by Angelica Nelson acting as a scribe for Surya Whitten MD ED Provider Note Name: ITALO CAMPOS Age: 83 Arrives Via: Walk-In Informant: Patient CC: Back pain HPI: 83M arrives for evaluation of back pain that has been ongoing for the past week and a half. The patient's pain is located in the right upper lumbar region of his back, and radiates to both sides and down his legs. He notes that he has never had back issues before. The patient complains of weakness in his legs, and notes that he is having trouble getting around. He denies fever, shortness of breath, loss of appetite, urinary symptoms, bowel issues, and rash. The patient has a history of arthritis, AAA, and abdominal surgery. He confirms that he is a smoker. He has been taking ibuprofen and Tylenol to manage his pain. The patients previous workup last week revealed spinal stenosis. ROS: See above HPI for pertinent positives & negatives. A total of 10 systems reviewed and were otherwise negative. Past Medical History: AAA Arthritis SBO GI Bleed Past Surgical History: AAA repair Family History: No pertinent family history Social History: Current everyday smoker Home Medications:See Below Allergies:See Below Vitals:BP: 148/67 Pulse: 62 Resp: 18 Temp: 36.5 O2 Sat: 94 Physical Exam: GENERAL: Patient is elderly, uncomfortable appearing, and in mild distress. EYES: No scleral icterus, unremarkable pupils. ENT: Mucous membranes moist, no nasal congestion. NECK: No masses appreciated, nomeningismus, trachea is midline. RESPIRATORY: No dyspnea. Clear to auscultation and equal bilaterally. No wheeze, no rhonchi. CARDIOVASCULAR: Regular rate and rhythm.No murmurs, rubs, gallops appreciated. GASTROINTESTINAL: Abdomen soft, non-tender, no peritonitis.Bowel sounds positive.No masses appreciated. BACK: Spasm of the right lumbar paraspinal muscles. No midline tenderness, no CVA tenderness EXTREMITIES: Normal motion all extremities, no cyanosis, no edema. NEUROLOGIC: Alert and oriented, no acute motor or sensory deficits, no focal weakness, cranial nerves grossly intact. SKIN: Excoriations of lower back from scratching. No rash, no jaundice, no diaphoresis. ED Course: Prior Medical Record, Triage/Nursing Notes, Medications, Allergies reviewed by Me Vital Signs: reviewed and remarkable for no significant abnormalities Labs:Reviewed and remarkable for mild bump BUN/Cr Interventions: saline lock, nss bolus 500ml iv, morphine 4mg IV x 2 Imaging:reviewed recent imaging ct c/a/p/lumbar Reassessments/Times: 2318: Past medical records reviewed. The patient was evaluated in room B04B. A complete history and physical exam was performed. 0021: The patient states that he is feeling a little better, but still has back pain with movement. 0033: I spoke to Dr. Medina, [facility] hospitalist, who agreed to take over care of the patient. The patient is agreeable to the treatment plan and will be further evaluated Blood pressure:Normal.No Referral necessary Disposition:Hospitalization Differentials:Musculoskeletal, disc herniation, fracture, aortic disease, metastatic disease, cord compression, discitis, infection, renal colic, gastrointestinal, acute exacerbation of chronic back pain, sciatica, cauda equina, amongst other pathologies. Medical Decision Makin yr old male with history of arthritis, sbo, gi bleed, aaa (s/p repair) returns for 3rd time this week to ED with continued lumbar back pain. Extensive work-up with ct imaging already. Mild renal insufficiency noted. He is not getting around house well and unable to care for his ill in his current condition. No neuro deficits on exam but admits legs sometimes feel well. No evidence this dissection by story but with IV contrast allergy would avoid CTA at this time as good pulses in legs. Does not seem consistent with infection. Reviewed with him/son and plan to have hospitalists evaluate further. Impression: Intractable Low Back Pain Lumbar Stenosis The scribe's documentation has been prepared under my direction and personally reviewed by me in its entirety. I confirm that the note above accurately reflect s all work, treatment, procedures, and medical decision making performed by me. Surya Whitten MD Impression & Plan Intractable low back pain, Lumbar stenosis Past Med/Surg History Medical History (Updated 05/27/19 @ 03:39 by Surya Whitten MD) AAA (abdominal aortic aneurysm) Arthritis Gastritis (Acute) GI bleed (Acute) Small bowel obstruction (Acute) Spinal stenosis (Acute) Surgical History History of abdominal aortic aneurysm (AAA) repair (Acute) Family History Other Family history non-contributory Social History Preferred Language: Urdu Communication Ability: Effective Back Filler Operator Required: No Beliefs That Will Affect Care: None Current Living Situation: Spouse Feels Safe at Home: Yes Safety Concerns: Feels Safe At This Time Smoking Status: Current every day smoker Tobacco Type: cigarettes ; Cigarettes Per Day: 5-6 ; Hx Alcohol Use: Yes Alcohol type: hard liquor Hx Substance Use: No Results & Data Vital Signs Vital Signs - 24 hr 05/26/19 23:04 05/26/19 23:41 05/26/19 23:43 Temperature 36.5 C Temperature Source Oral Pulse Rate 83 69 67 Pulse Rate [Apical] Pulse Rate from SpO2 Sensor 68 67 Pulse Rhythm [Apical] Respiratory Rate 18 17 16 Respiratory Effort / Characteristics Non-Labored Spontaneous Respiratory Depth Normal Respiratory Pattern Blood Pressure 149/90 H 138/61 Blood Pressure [Right Arm] Blood Pressure Mean 109 82 Blood Pressure Mean [Right Arm] Blood Pressure Position [Right Arm] Pulse Oximetry 97 96 95 Oxygen Delivery Method Room Air Sepsis Recent Fever Within 48 Hours No Sepsis Action Taken by Nursing No Action Required 05/27/19 00:00 05/27/19 00:01 05/27/19 00:02 Temperature Temperature Source Pulse Rate 62 64 61 Pulse Rate [Apical] 62 Pulse Rate from SpO2 Sensor 62 64 61 Pulse Rhythm [Apical] Regular Respiratory Rate 15 14 15 Respiratory Effort / Characteristics Non-Labored Spontaneous Respiratory Depth Normal Respiratory Pattern Regular Blood Pressure 148/67 H 148/67 H Blood Pressure [Right Arm] 148/67 H Blood Pressure Mean 96 96 Blood Pressure Mean [Right Arm] 94 Blood Pressure Position [Right Arm] Lying Pulse Oximetry 94 94 94 Oxygen Delivery Method Room Air Sepsis Recent Fever Within 48 Hours Sepsis Action Taken by Nursing 05/27/19 00:30 05/27/19 00:31 05/27/19 01:00 Temperature Temperature Source Pulse Rate 57 L 58 L 58 L Pulse Rate [Apical] Pulse Rate from SpO2 Sensor 57 L 57 L 58 L Pulse Rhythm [Apical] Respiratory Rate 16 20 16 Respiratory Effort / Characteristics Respiratory Depth Respiratory Pattern Blood Pressure 147/63 H 154/69 H Blood Pressure [Right Arm] Blood Pressure Mean 96 104 Blood Pressure Mean [Right Arm] Blood Pressure Position [Right Arm] Pulse Oximetry 93 92 92 Oxygen Delivery Method Sepsis Recent Fever Within 48 Hours Sepsis Action Taken by Nursing 05/27/19 01:01 Temperature Temperature Source Pulse Rate 58 L Pulse Rate [Apical] Pulse Rate from SpO2 Sensor 58 L Pulse Rhythm [Apical] Respiratory Rate 20 Respiratory Effort / Characteristics Respiratory Depth Respiratory Pattern Blood Pressure Blood Pressure [Right Arm] Blood Pressure Mean Blood Pressure Mean [Right Arm] Blood Pressure Position [Right Arm] Pulse Oximetry 94 Oxygen Delivery Method Sepsis Recent Fever Within 48 Hours Sepsis Action Taken by [facility] Medications Current Medication List: was personally reviewed by me Laboratory Data Attestation: I reviewed the patient's lab results. Result diagrams: 05/26/19 23:41 05/26/19 23:41 Lab Results 05/26/19 05/26/19 Range/Units 23:41 23:41 WBC 7.35 (4.8-10.8) K/uL RBC 4.39 L (4.7-6.1) M/uL Hgb 14.0 (14.0-18.0) g/dL Hct 41.9 L (42-52) % MCV 95.4 (80-100) fL MCH 31.9 (25-34) pg MCHC 33.4 (32-36) g/dL RDW Std Deviation 43.3 (36.4-46.3) fL RDW Coeff of Mick 12.5 (11.5-14.5) % Plt Count 217 (130-400) K/uL MPV 9.7 (7.4-10.4) fL Immature Gran % (Auto) 0.1 % Neut % (Auto) 69.7 % Lymph % (Auto) 18.4 % Jones % (Auto) 9.3 % Eos % (Auto) 1.8 % Baso % (Auto) 0.7 % Immature Gran # (Auto) 0.01 (0.00-0.02) K/uL Neut # (Auto) 5.13 (1.4-6.5) K/uL Lymph # (Auto) 1.35 (1.2-3.4) K/uL Jones # (Auto) 0.68 H (0.11-0.59) K/uL Eos # (Auto) 0.13 (0-0.5) K/uL Baso # (Auto) 0.05 (0-0.2) K/uL Sodium 137 (136-145) mmol/L Potassium 4.1 (3.5-5.1) mmol/L Chloride 109 H (98-107) mmol/L Carbon Dioxide 29 (21-32) mmol/L Anion Gap -1.0 L (3-11) BUN 24 H (7-18) mg/dl Creatinine 1.49 H (0.6-1.4) mg/dl Est Cr Clr Drug Dosing 38.1 ml/min Est GFR ( Amer) 49.2 Est GFR (Non-Af Amer) 42.5 BUN/Creatinine Ratio 16.3 (10-20) Glucose 94 (70-99) mg/dl Calcium 8.8 (8.5-10.1) mg/dl Magnesium 2.2 (1.8-2.4) mg/dl Total Bilirubin 0.5 (0.2-1) mg/dl Direct Bilirubin 0.1 (0-0.2) mg/dl AST 14 L (15-37) U/L ALT 18 (12-78) U/L Alkaline Phosphatase 46 (45-117) U/L Total Creatine Kinase 100 (39-308) U/L Troponin I < 0.015 (0-0.045) ng/ml Total Protein 6.5 (6.4-8.2) gm/dl Albumin 3.4 (3.4-5.0) gm/dl Administered Medications Discontinued Medications Sodium Chloride (Nss 1000ml) 500 mls @ 999 mls/hr IV .Q31M ONE Stop: 05/27/19 00:44 Last Infusion: 05/27/19 01:14 Dose: 0 mls/hr Documented by: [id number] Admin: 05/27/19 00:16 Dose: 999 mls/hr Documented by: [id number] Morphine Sulfate (Morphine Sulfate) 4 mg IV NOW STA Stop: 05/26/19 23:27 Last Admin: 05/26/19 23:45 Dose: 4 mg Documented by: [id number] Morphine Sulfate (Morphine Sulfate) 4 mg IV NOW STA Stop: 05/27/19 00:34 Last Admin: 05/27/19 00:40 Dose: 4 mg Documented by: [id number] Discharge Plan Visit Data *Final* Discharge Date/Time: 05/27/19 01:50 Chief Complaint: Back Injury/Pain Stated Complaint: BACK PAIN ED Provider: Surya Whitten Discharge Problem: Intractable low back pain, Lumbar stenosis Patient Disposition: Admitted As Inpatient Discharge Instructions Interventions: ED Discharge Assessment Last Done: 05/27/19 01:50 Discharge Problem: Lumbar stenosis Qualifiers: Neurogenic claudication status: without neurogenic claudication Qualified Code(s): M48.061 - Spinal stenosis, lumbar region without neurogenic claudication The scribe's documentation has been prepared under my direction and personally reviewed by me in its entirety. I confirm that the note above accurately r eflects all work, treatment, procedures, and medical decision making performed by me.
--- NOTE | 2019-05-27 04:38 | History and Physical Report ---
DATE OF ADMISSION: 05/27/2019 CHIEF COMPLAINT: Severe back pain. HISTORY OF PRESENT ILLNESS: An 83-year-old male with past medical history significant for moderate COPD, pleural plaque with presence of asbestosis, atherosclerotic cardiovascular disease, hypertension, chronic kidney disease stage III, irritable bowel syndrome, gastroparesis, GERD, eczema, osteoarthritis involving multiple joints, senile dementia, major depression, tobacco use disorder, sleep disturbance, who lives with his . Generally walks without any support. Comes in because of severe back pain. The patient was in the ER three since last week for severe back pain. CAT scan done on 05/22/2019 showed lumbar stenosis, most severe at L1-L2 level and L2-L3 level. The patient was given pain medication, but not helping much, but denies any numbness in the legs. No bowel or bladder incontinence. His is also sick at home. Otherwise he is doing okay. Has some mild headache, no blurred visions. Appetite is okay, swallows okay without any difficulty. No chest pain, no shortness of breath, no cough, no fevers, no nausea, no vomiting, no abdominal pain. Normal bowel and bladder movements. No swelling in the legs. Currently resting comfortably and hemodynamically stable. The patient is very hard of hearing. Son is in the room who helped with most of the history. ALLERGIES: REGLAN, IVP DYE, PSEUDOEPHEDRINE, SULFA ANTIBIOTICS, TRAMADOL. PAST MEDICAL HISTORY: As mentioned above. PAST SURGICAL HISTORY: Colonoscopy, destruction of internal hemorrhoids, EGDs, hemorrhoidectomy, cataract surgery, repair of the thoracoabdominal aneurysm. MEDICATIONS: The patient is on Ativan 1 mg p.o. t.i.d., atorvastatin 10 mg p.o. at bedtime, triamcinolone as needed, citalopram 40 mg p.o. daily, glucosamine chondroitin 2 tablets daily, multivitamins 1 tablet daily, telmisartan 20 mg p.o. daily, diclofenac sodium b.i.d. p.r.n., nitroglycerin 0.4 mg sublingual p.r.n., Protonix 40 mg p.o. b.i.d., Proscar 5 mg p.o. daily, Tylenol 1000 mg p.o. t.i.d. p.r.n., aspirin 81 mg p.o. daily, albuterol nebulization q. 4 hours p.r.n. FAMILY HISTORY: Significant for son has osteoarthritis, father of stroke at age 87, mother of stroke at age of 87, brother has diabetes, brain tumor. SOCIAL HISTORY: and lives with his . Smoked half pack a day. No drug use. REVIEW OF SYSTEMS: As per HPI. Rest of the review of systems negative. PHYSICAL EXAMINATION: GENERAL: The patient is old and frail, not in acute distress. VITAL SIGNS: Temperature 36.5, pulse 62, respiratory rate 18, blood pressure 114/67, oxygen 94% on room air. HEENT: No pallor, no icterus. Pupils equal, round, and reactive to light. NECK: No JVD, no neck masses, no carotid bruits. CARDIOVASCULAR: S1, S2 heard, regular rate and rhythm, no murmur, no gallop. RESPIRATORY SYSTEM: Normal AP diameter. No accessory muscle use. No wheezing, no crackles. ABDOMEN: Soft, bowel sounds present, nontender, no distention. CENTRAL NERVOUS SYSTEM: Alert and awake, very hard of hearing. Obeys simple commands. Moves extremities. MUSCULOSKELETAL: No spinal tenderness. EXTREMITIES: No edema, no erythema. NEUROLOGIC: Power is intact. Sensation is intact. LABORATORY DATA: WBC 7.3, hemoglobin 14, hematocrit 41.9, platelets 217. Sodium 137, potassium 4.1, chloride 109, bicarbonate 29, BUN 24, creatinine 1.49, serum glucose 94, calcium 8.8, magnesium 2.2, total bilirubin 0.5, direct bilirubin 0.1, AST 14, ALT 18, alkaline phosphatase 46, total creatinine kinase 100. Troponin I less than 0.015. ASSESSMENT AND PLAN: This is an 83-year-old male who presents with severe back pain. 1. Severe back pain, going on for the last few weeks. Family doctor stopped his statin, but still pain was not getting better. Was in the ER a few times in the last week. CAT scan done on 05/22/2019 showed severe lumbar spinal stenosis, mostly at , L1-L2 level. Will continue his home pain medications. Also placed him on IV Dilaudid p.r.n., lidocaine patch,. PT, OT, and consult orthopedics for possible any role of epidural shots or any other further recommendations. 2. History of chronic kidney disease stage III, baseline creatinine 1.4-1.6, presented with creatinine of 1.49. We will follow the labs. 3. History of chronic obstructive pulmonary disease, history of pleural plaque with presence of asbestosis. Continue home nebs p.r.n. 4. History of depression and anxiety. Continue his home dose of Ativan and Celexa. 5. Benign prostatic hypertrophy, continue Proscar. 6. Gastroesophageal reflux disease, continue his Protonix. 7. Hypertension. Continue telmisartan. We will monitor the blood pressure. 8. Hyperlipidemia, Lipitor was held as outpatient, for possible myalgias. CK ok 9. History of senile dementia. Will Monitor for any delirium. 10. Deep venous thrombosis prophylaxis, sequential compression devices for now. 11. Disposition: Admit to observation medical floor. PT and OT prior to discharge. Social service to help with discharge planning. Code status level 1 full code as per my discussion with the patient and his son. ALEN
[2019-05-27 08:52] LABS: Appearance Urine Clear (Clear); Bacteria Urine Automated Negative (Negative); Bilirubin Urine Negative (Negative); Blood Urine Trace (Negative); Cast Urine Automated 0 /lpf (0-5); Color Urine Yellow; Epithelial Cell Urine Auto 0-5 /lpf (0-5); Glucose Urine UA Negative (Negative); Ketones Urine Negative (Negative); Leukocyte Esterase Urine Negative (Negative); Nitrite Urine Negative (Negative); Protein Urine Negative (Negative); RBC Urine Automated 0-4 /hpf (0-4); Specific Gravity Urine 1.011 (1.000-1.030); Urobilinogen Urine Negative (Negative); WBC Urine Automated 0 /hpf (0-5); pH Urine 7.5 (4.5-7.5)
[2019-05-27] MEDS: LORazepam 1 MG TAB PO SCH ×2 (09:17→13:33)
[2019-05-27] MEDS: CITALOPRAM 40 MG TAB PO SCH (09:17)
[2019-05-27] MEDS: LIDOCAINE 5% 1 PATCH TD SCH (09:18)
[2019-05-27] MEDS: BETAMETHASONE DIP AUG 0.05% OINT 15 GM TUBE EXT SCH ×2 (09:18→20:07)
[2019-05-27] MEDS: ASPIRIN 81 MG ECTAB PO SCH (09:18)
[2019-05-27] MEDS: TELMISARTAN 20 MG TAB PO SCH (09:19)
[2019-05-27] MEDS: MULTIVITAMIN TAB PO SCH (09:19)
[2019-05-27] MEDS: PANTOprazole 40 MG TAB PO SCH ×2 (09:19→20:08)
[2019-05-27] MEDS: DICLOFENAC SOD 1% GEL 100 GM TUBE EXT SCH ×2 (09:20→20:07)
[2019-05-27] MEDS: FINASTERIDE 5 MG TAB PO SCH (09:20)
--- NOTE | 2019-05-27 09:53 | Orthopedic Consultation ---
Date of Consultation May 27, 2019 Assessment & Plan (1) Intractable low back pain: This time we are going to order an MRI lumbar spine. Will review results and consider options. Present on Admission?: Yes History of Present Illness Reason for Consultation: Patient complaining of back pain for several months as well as intermittent leg pain. Attending Physician: Antonia Rabago MD History of Present Illness This is an 83-year-old male that describes lumbosacral back pain with leg pain with activity. Allergies Allergy/AdvReac Type Severity Reaction Status Date / Time Iodinated Contrast Media Allergy Unknown HIVES Verified 05/26/19 23:26 pseudoephedrine Allergy Unknown UNSURE OF Verified 05/26/19 23:26 RX? Sulfa (Sulfonamide Allergy Unknown DOES NOT Verified 05/26/19 23: Antibiotics) KNOW RX tramadol AdvReac psyche Verified 05/26/19 23:26 complications Home Medications Home Medications Medication Instructions Recorded Confirmed Type acetaminophen [Tylenol Extra 1,000 mg PO TID PRN 05/20/19 05/26/19 History Strength] albuterol sulfate 2.5 mg INHALATION Q4 PRN 05/20/19 05/26/19 History aspirin [Aspir-81] 81 mg PO DAILY 05/20/19 05/26/19 History atorvastatin 10 mg PO HS 05/20/19 05/26/19 History betamethasone, augmented 1 applic TOPICAL BID 05/20/19 05/26/19 History citalopram 40 mg PO DAILY 05/20/19 05/26/19 History diclofenac sodium 4 g TOPICAL UD 05/20/19 05/26/19 History finasteride 5 mg PO DAILY 05/20/19 05/26/19 History [id number]-[id number]-C-lamar-bor 1 tab PO UD 05/20/19 05/26/19 History [Icpzirihnzb-Gpgcu-OWO Complex] lorazepam [Ativan] 1 mg PO TID 05/20/19 05/26/19 History multivitamin 1 tab PO DAILY 05/20/19 05/26/19 History nitroglycerin 0.4 mg SUBLINGUAL UD PRN 05/20/19 05/26/19 History pantoprazole [Protonix] 40 mg PO BID 05/20/19 05/26/19 History sennosides [Ex-Lax (sennosides)] 15 mg PO HS 05/20/19 05/26/19 History telmisartan 20 mg PO DAILY 05/20/19 05/26/19 History triamcinolone acetonide 1 applic TOPICAL BID PRN 05/20/19 05/26/19 History hydrocodone-acetaminophen 1 tab PO Q8H PRN #10 tab 05/22/19 05/26/19 Rx Patient History Medical History (Updated 05/27/19 @ 03:39 by Surya Whitten MD) AAA (abdominal aortic aneurysm) Arthritis Gastritis (Acute) GI bleed (Acute) Small bowel obstruction (Acute) Spinal stenosis (Acute) Surgical History History of abdominal aortic aneurysm (AAA) repair (Acute) Family History Other Family history non-contributory Social History Preferred Language: Macedonian Communication Ability: Effective Personnel Representative Required: No Beliefs That Will Affect Care: None Current Living Situation: Spouse Feels Safe at Home: Yes Safety Concerns: Feels Safe At This Time Smoking Status: Current every day smoker Tobacco Type: cigarettes ; Cigarettes Per Day: 5-6 ; Hx Alcohol Use: Yes Alcohol type: hard liquor Hx Substance Use: No Physical Exam Physical Exam: On exam he is in bed has reasonable strength testing. Does not have discomfort to palpation lumbar spine. Results & Data Vital Signs (Past 12 Hours) Vital Signs Temp Pulse Pulse Pulse Resp BP BP 05/27/19 07:04 36.5 C 50 L 16 161/70 H 05/27/19 02:18 36.4 C L 60 18 05/27/19 01:31 54 L 13 05/27/19 01:30 56 L 15 141/61 H 05/27/19 01:01 58 L 20 05/27/19 01:00 58 L 16 154/69 H 05/27/19 00:31 58 L 20 05/27/19 00:30 57 L 16 147/63 H 05/27/19 00:02 61 15 05/27/19 00:01 64 14 148/67 H 05/27/19 00:00 62 62 15 148/67 H 05/26/19 23:43 67 16 05/26/19 23:41 69 17 138/61 05/26/19 23:04 36.5 C 83 18 149/90 H BP Pulse Ox 05/27/19 07:04 95 05/27/19 02:18 171/72 H 90 05/27/19 01:31 96 05/27/19 01:30 05/27/19 01:01 94 05/27/19 01:00 92 05/27/19 00:31 92 05/27/19 00:30 93 05/27/19 00:02 94 05/27/19 00:01 94 05/27/19 00:00 148/67 H 94 05/26/19 23:43 95 05/26/19 23:41 96 05/26/19 23:04 97
--- NOTE | 2019-05-27 11:47 | Hospitalist Progress Note ---
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 Moderate to severe multilevel central canal stenosis, moderate to severe at L1-L2 and L4-L5 with moderate central canal stenosis at L2-L3 and L3-L4. 2. No lumbar spine fracture. 3. Moderate multilevel neural foraminal stenosis. 4. Exam mildly compromised by motion artifact. MRI report updated to patient and patient's daughter present at bedside Family wants to proceed to conservative management, pain control Not interested for spinal decompression surgery with concern for poor recovery, Patient has underlying severe anxiety disorder, not be able to do well in rehab Update orthopedics regarding option for back brace, epidural injection: If indicated, physical therapy Severe anxiety disorder, obsessive-compulsive disorder: Continue on Lexapro: 40 mg daily, Patient's daughter reports patient has been taking it intermittently, which has worsened his anxiety symptoms recently On PRN Ativan as needed CODE STATUS: Full code Disposition: Lives at home with , Has been very limited in daily activities, ambulation secondary to intractable back pain PT OT consulted Social service consulted for discharge planning Plan of care updated to patient's daughter: Noris Landa phone number #[phone] at bedside Daughter requests update with any change of patient's status (2) Lumbar stenosis: Subjective continued to have intractable back pain at rest , worsened. on movement no urinary symptoms had MRI of lumber spine done , shows multilevel DJD with spinal stenosis pt was sedated due to pain meds , wakes up to voice -denies of any chest pain or SOB " Back hurts" is his only issue Pt's Daughter present at bedside does not believe her father will agree for Spinal surgery wants to explore conservative management with brace , spinal injection -if indicated , and physical therapy will update Spinal ortho Review of Systems Review of Systems: All systems reviewed & are unremarkable except as noted in HPI & below Musculoskeletal: + radicular pain (radiation to both legs ) and + limited range of motion (due to back pain ) intractable back pain Physical Exam Constitutional: WD/WN, vitals as above + thin; no acute distress Eyes: PERRL, conjunctivae normal, anicteric sclerae ENMT: external ear and nose normal, oropharynx normal Neck: trachea midline, no thyromegaly Respiratory: normal respiratory effort, lungs clear to auscultation Cardiovascular: RRR, no murmur, no edema Gastrointestinal (Abdomen): normal bowel sounds, soft, nontender, no hepatosplenomegaly Musculoskeletal: Extremities: + limited ROM of extremities (due to back pain ) Skin: no rashes, warm and dry Neurologic: PERRL, EOMI, accommodation nl, no face palsy, no dysarthria Results & Data Vital Signs (Past 12 Hours) Vital Signs Temp Pulse Pulse Pulse Resp BP BP 05/27/19 07:04 36.5 C 50 L 16 161/70 H 05/27/19 02:18 36.4 C L 60 18 05/27/19 01:31 54 L 13 05/27/19 01:30 56 L 15 141/61 H 05/27/19 01:01 58 L 20 05/27/19 01:00 58 L 16 154/69 H 05/27/19 00:31 58 L 20 05/27/19 00:30 57 L 16 147/63 H 05/27/19 00:02 61 15 05/27/19 00:01 64 14 148/67 H 05/27/19 00:00 62 62 15 148/67 H BP Pulse Ox 05/27/19 07:04 95 05/27/19 02:18 171/72 H 90 05/27/19 01:31 96 05/27/19 01:30 05/27/19 01:01 94 05/27/19 01:00 92 05/27/19 00:31 92 05/27/19 00:30 93 05/27/19 00:02 94 05/27/19 00:01 94 05/27/19 00:00 148/67 H 94 (1) Lumbar stenosis Neurogenic claudication status: without neurogenic claudication Qualified Code(s): M48.061 - Spinal stenosis, lumbar region without neurogenic claudication
--- NOTE | 2019-05-27 14:50 | Magnetic Resonance Report ---
MRI OF THE LUMBAR SPINE WITHOUT CONTRAST CLINICAL HISTORY: Back and leg pain. COMPARISON STUDY: Lumbar spine CT May 22, 2019. Lumbar spine radiograph June 27, 2012. TECHNIQUE: Utilizing a 1.5 Shannan magnet and dedicated coil, multiplanar, multiecho imaging of the [facility] spine was performed without IV contrast. FINDINGS: For purposes of numbering on this exam, the L5-S1 disc space is assigned to axial image 23 of 25. Thi s exam is compromised by motion artifact, particularly the axial images. Alignment is anatomic. Verte bral body heights are maintained. Discogenic changes are noted at multiple levels. There is no intrac analicular mass or fluid collection. The conus terminates at the T12-L1 level. L1-2: There is disc space narrowing with disc bulge, ligamentous hypertrophy and facet arthrosis. The re is moderate to severe narrowing of the central canal and lateral recesses with mild bilateral neur al foraminal stenosis. Patent AP canal measures 5.6 mm in dimension. L2-3: There is disc space narrowing with disc bulge, ligamentous hypertrophy and facet arthrosis. The re is moderate narrowing of the central canal and lateral recesses as well as mild to moderate narrow ing of both neural foramen. L3-4: There is disc space narrowing with ligamentous hypertrophy and facet arthrosis. There is modera te central canal and lateral recess narrowing with mild bilateral neural foraminal stenosis. L4-5: There is disc space narrowing with mild disc bulge. There is severe facet arthrosis with ligame ntous hypertrophy. There is moderate to severe central canal stenosis. There is moderate during of audrey th lateral recesses and the right neural foramen. L5-S1: There is disc bulge with small central disc protrusion. Central canal is patent. There is mild narrowing of the bilateral lateral recesses. The neural foramen are patent. IMPRESSION: 1. Moderate to severe multilevel central canal stenosis, moderate to severe at L1-L2 and L4-L5 with m oderate central canal stenosis at L2-L3 and L3-L4. 2. No lumbar spine fracture. 3. Moderate multilevel neural foraminal stenosis. 4. Exam mildly compromised by motion artifact. ACT 112: Negative or not required by law. Electronically signed by: Lan Gabriel M.D. 05/27/2019 2:48 PM
[2019-05-27] MEDS: SENNA 8.6 MG TAB PO SCH (20:08)
[2019-05-27] MEDS: LORazepam 1 MG TAB PO PRN (22:22)
[2019-05-28 05:55] LABS: Basophils # (auto) 0.04 K/uL (0-0.2); Basophils % (auto) 0.5 %; Eosinophils # (auto) 0.17 K/uL (0-0.5); Eosinophils % (auto) 2.2 %; Hematocrit (blood only) 39.3 % (42-52); Hemoglobin 13.3 g/dL (14.0-18.0); Immature Granulocytes # (auto) 0.01 K/uL (0.00-0.02); Immature Granulocytes % (auto) 0.1 %; Lymphocytes # (auto) 1.38 K/uL (1.2-3.4); Mean Corpuscular Hgb Conc 33.8 g/dL (32-36); Mean Corpuscular Volume 94.5 fL (80-100); Mean Platelet Volume 9.9 fL (7.4-10.4); Monocytes # (auto) 0.56 K/uL (0.11-0.59); Monocytes % (auto) 7.3 %; Neutrophils # (auto) 5.51 K/uL (1.4-6.5); Neutrophils % (auto) 71.9 %; Platelet Count 222 K/uL (130-400); RDW Coefficient of Variation 12.5 % (11.5-14.5); RDW Standard Deviation 43.1 fL (36.4-46.3); Red Blood Count 4.16 M/uL (4.7-6.1); White Blood Count 7.67 K/uL (4.8-10.8)
[2019-05-28 06:34] LABS: BUN Creatinine Ratio 15.9 (10-20); Calcium 8.8 mg/dl (8.5-10.1); Creatinine Clr Calc Pharmacy 41.7 ml/min; Est GFR (Non-African American) 47.4; Magnesium 2.2 mg/dl (1.8-2.4); Potassium 3.9 mmol/L (3.5-5.1)
[2019-05-28] MEDS: FINASTERIDE 5 MG TAB PO SCH (09:02)
[2019-05-28] MEDS: ASPIRIN 81 MG ECTAB PO SCH (09:02)
[2019-05-28] MEDS: MULTIVITAMIN TAB PO SCH (09:02)
[2019-05-28] MEDS: TELMISARTAN 20 MG TAB PO SCH (09:02)
[2019-05-28] MEDS: PANTOprazole 40 MG TAB PO SCH ×2 (09:02→20:44)
[2019-05-28] MEDS: LIDOCAINE 5% 1 PATCH TD SCH ×2 (09:02→14:15)
[2019-05-28] MEDS: CITALOPRAM 40 MG TAB PO SCH (09:02)
[2019-05-28] MEDS: DICLOFENAC SOD 1% GEL 100 GM TUBE EXT SCH ×2 (09:03→20:46)
[2019-05-28] MEDS: BETAMETHASONE DIP AUG 0.05% OINT 15 GM TUBE EXT SCH ×2 (09:03→20:46)
--- NOTE | 2019-05-28 11:31 | Orthopedic Progress Note ---
Date of Service May 28, 2019 Assessment & Plan (1) Intractable low back pain: MRI does demonstrate multilevel lumbar spinal stenosis with spondylosis. At this point I recommend a consultation with interventional pain management. Hopefully his symptoms would improve with lumbar epidural injections and we could avoid surgery. Present on Admission?: Yes Subjective Patient still complaining of back and bilateral leg pain Physical Exam Physical Exam: He is neurologically intact appears comfortable at this time. Results & Data Vital Signs (Past 12 Hours) Vital Signs Temp Pulse Resp BP Pulse Ox 05/28/19 07:42 36.9 C 61 18 132/64 95
[2019-05-28] MEDS: ACETAMINOPHEN 325 MG TAB PO PRN ×2 (12:24→20:45)
--- NOTE | 2019-05-28 14:57 | Hospitalist Progress Note ---
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 Moderate to severe multilevel central canal stenosis, moderate to severe at L1-L2 and L4-L5 with moderate central canal stenosis at L2-L3 and L3-L4. 2. No lumbar spine fracture. 3. Moderate multilevel neural foraminal stenosis. 4. Exam mildly compromised by motion artifact. MRI report updated to patient and patient's daughter present at bedside Family wants to proceed to conservative management, pain control Not interested for spinal decompression surgery with concern for poor recovery, Patient has underlying severe anxiety disorder, not be able to do well in rehab Appreciate input orthopedics, recommends pain management consult for possible epidural injection Pain management consulted Severe anxiety disorder, obsessive-compulsive disorder: Continue on Lexapro: 40 mg daily, Patient's daughter reports patient has been taking it intermittently, which has worsened his anxiety symptoms recently On PRN Ativan as needed CODE STATUS: Full code Disposition: Lives at home with , Has been very limited in daily activities, ambulation secondary to intractable back pain PT OT consulted Social service consulted for discharge planning Plan of care updated to patient's daughter: Noris Landa phone number #[phone] at bedside Daughter requests update with any change of patient's status (2) Lumbar stenosis: Subjective Patient still complaining of back and bilateral leg pain Review of Systems Musculoskeletal: + radicular pain (radiation to both legs ) and + limited range of motion (due to back pain ) intractable back pain Physical Exam Constitutional: WD/WN, vitals as above + thin; no acute distress Eyes: PERRL, conjunctivae normal, anicteric sclerae ENMT: external ear and nose normal, oropharynx normal Neck: trachea midline, no thyromegaly Respiratory: normal respiratory effort, lungs clear to auscultation Cardiovascular: RRR, no murmur, no edema Gastrointestinal (Abdomen): normal bowel sounds, soft, nontender, no hepatosplenomegaly Musculoskeletal: Extremities: + limited ROM of extremities (due to back pain ) Skin: no rashes, warm and dry Neurologic: PERRL, EOMI, accommodation nl, no face palsy, no dysarthria Results & Data Vital Signs (Past 12 Hours) Vital Signs Temp Pulse Resp BP Pulse Ox 05/28/19 07:42 36.9 C 61 18 132/64 95 (1) Lumbar stenosis Neurogenic claudication status: without neurogenic claudication Qualified Code(s): M48.061 - Spinal stenosis, lumbar region without neurogenic claudication
[2019-05-28] MEDS: HYDROCODONE/ACETAMOPHEN 5/325MG TAB PO PRN ×2 (15:33→23:50)
[2019-05-28] MEDS: LORazepam 1 MG TAB PO PRN (18:00)
[2019-05-28] MEDS: SENNA 8.6 MG TAB PO SCH (20:45)
[2019-05-29] MEDS: MULTIVITAMIN TAB PO SCH (08:36)
[2019-05-29] MEDS: FINASTERIDE 5 MG TAB PO SCH (08:36)
[2019-05-29] MEDS: CITALOPRAM 40 MG TAB PO SCH (08:36)
[2019-05-29] MEDS: PANTOprazole 40 MG TAB PO SCH ×2 (08:36→20:36)
[2019-05-29] MEDS: TELMISARTAN 20 MG TAB PO SCH (08:37)
[2019-05-29] MEDS: BETAMETHASONE DIP AUG 0.05% OINT 15 GM TUBE EXT SCH ×2 (08:39→20:35)
[2019-05-29] MEDS: LIDOCAINE 5% 1 PATCH TD SCH (08:39)
[2019-05-29] MEDS: DICLOFENAC SOD 1% GEL 100 GM TUBE EXT SCH ×2 (08:40→20:37)
--- NOTE | 2019-05-29 09:15 | Pain Management Consultation ---
Date of Consultation May 29, 2019 Assessment & Plan (1) Intractable low back pain: Present on Admission?: Yes (2) Lumbar stenosis: Neurogenic claudication status: without neurogenic claudication Qualified Code(s): M48.061 - Spinal stenosis, lumbar region without neurogenic claudication Present on Admission?: Yes (3) Lumbar spondylosis: 1. Patient appears to be symptomatic from history of lumbar spinal canal stenosis and lumbar spondylosis. We did discuss various treatment options at today's visit. Lumbar epidural steroid injections were discussed. Patient indicated that he would defer lumbar FUAD. Should the patient choose to reconsider he may undergo evaluation in the outpatient clinic for consideration of FUAD. 2. Consider a trial of gabapentin therapy in an attempt to diminish his symptomatic pain complaints should he continue to defer interventional treatment 3. Patient may continue with hydrocodone/acetaminophen for as needed breakthrough pain which he indicated was effective without notable side effects. 4. Will sign off on patient at this time, please contact pain service should he wish to pursue lumbar FUAD which would be arranged in the outpatient setting Present on Admission?: Yes History of Present Illness Reason for Consultation: Intractable back pain Requesting Physician: Antonia Rabago MD Attending Physician: Antonia Rabago MD History of Present Illness Mr. Shelton is an 83-year-old white male who was admitted due to complaints of severe axial low back pain. The patient reported no recent injury. The patient reports his back pain is been chronic in duration but recently increased in frequency/severity. He describes the pain as aching in characteristic in the axial lumbar spine. Patient denies weaknesses in the lower extremity, foot drop or episodes of falling. He is reported living at home with his . Patient denies any bowel or bladder incontinence. He reports that his pain is minimal upon entering the room today. He is unable to reliably report activities which increases pain or alleviate his pain. He denies any prior history of injections in his lumbar spine or surgery. Patient is hard of hearing but communication was moderately effective. The patient was not accompanied by any family members at the time of today's visit. Patient reports the pain medication is effective without notable side effects at diminishing the severity of his pain he is using upon this admission. Patient had no further constitutional complaints at the time of his visit. Pain Assessment Pain scale - at its best (0-10): 3 Pain scale - at its worst (0-10): 6 Allergies Allergy/AdvReac Type Severity Reaction Status Date / Time Iodinated Contrast Media Allergy Unknown HIVES Verified 05/26/19 23:26 pseudoephedrine Allergy Unknown UNSURE OF Verified 05/26/19 23:26 RX? Sulfa (Sulfonamide Allergy Unknown DOES NOT Verified 05/26/19 23:26 Antibiotics) KNOW RX tramadol AdvReac psyche Verified 05/26/19 23:26 complications Home Medications Home Medications Medication Instructions Recorded Confirmed Type acetaminophen [Tylenol Extra 1,000 mg PO TID PRN 05/20/19 05/26/19 History Strength] albuterol sulfate 2.5 mg INHALATION Q4 PRN 05/20/19 05/26/19 History aspirin [Aspir-81] 81 mg PO DAILY 05/20/19 05/26/19 History atorvastatin 10 mg PO HS 05/20/19 05/26/19 History betamethasone, augmented 1 applic TOPICAL BID 05/20/19 05/26/19 History citalopram 40 mg PO DAILY 05/20/19 05/26/19 History diclofenac sodium 4 g TOPICAL UD 05/20/19 05/26/19 History finasteride 5 mg PO DAILY 05/20/19 05/26/19 History cgozqmim-jyqql-qvl7-C-lamar-bor 1 tab PO UD 05/20/19 05/26/19 History [Nfgrnzweheh-Lpvtv-WXC Complex] lorazepam [Ativan] 1 mg PO TID 05/20/19 05/26/19 History multivitamin 1 tab PO DAILY 05/20/19 05/26/19 History nitroglycerin 0.4 mg SUBLINGUAL UD PRN 05/20/19 05/26/19 History pantoprazole [Protonix] 40 mg PO BID 05/20/19 05/26/19 History sennosides [Ex-Lax (sennosides)] 15 mg PO HS 05/20/19 05/26/19 History telmisartan 20 mg PO DAILY 05/20/19 05/26/19 History triamcinolone acetonide 1 applic TOPICAL BID PRN 05/20/19 05/26/19 History hydrocodone-acetaminophen 1 tab PO Q8H PRN #10 tab 05/22/19 05/26/19 Rx Pain History Pain Location Full Body Front + Back: 1. Axial lumbar spine Pain Intensity Pain scale - at its best (0-10): 3 Pain scale - at its worst (0-10): 6 Timing Timing: all day Character Pain character: aching Patient History Medical History (Updated 05/29/19 @ 12:28 by Thee Melendez PA-C) AAA (abdominal aortic aneurysm) Arthritis Gastritis (Acute) GI bleed (Acute) Lumbar spondylosis (Chronic) Small bowel obstruction (Acute) Spinal stenosis (Acute) Surgical History History of abdominal aortic aneurysm (AAA) repair (Acute) Family History Other Family history non-contributory Social History Preferred Language: Wallisian Communication Ability: Effective Telegraph Messenger Required: No Beliefs That Will Affect Care: None marital status: Current Living Situation: Spouse Feels Safe at Home: Yes Safety Concerns: Feels Safe At This Time Smoking Status: Current every day smoker Tobacco Type: cigarettes ; Cigarettes Per Day: 5-6 ; Hx Alcohol Use: Yes Alcohol type: hard liquor Hx Substance Use: No Physical Exam Physical Exam: General: Patient sitting quietly in exam room in no acute dis tress. Speech and thought process appropriate. Mood and affect appropriate. Cognition intact. Patient was somewhat hard of hearing but was able to answer direct questions. Head: Normocephalic and atraumatic. ENT: No evidence of nasal or oral mucosal lesions. Mucous membranes are moist. Eyes: Pupils equal round reactive to light. Neck: Supple without adenopathy and full range of motion. Chest: Nontender to palpation of the costosternal junction. Abdomen: Soft and nondistended. No organomegaly. Bowel sounds active. Back/spine: Patient was able to logroll towards his left side without limitation or discomfort. Patient is nontender over the midline to palpation percussion. Some generalized lumbosacral tenderness to palpation which is nonfocal to the facet joint or SI joint region. No appreciable spasm or myoneural trigger points. Lower extremities: SLR negative bilaterally. Strength was 5/5 with plantar flexion, dorsiflexion and hip flexion/extension. Sensation was intact without deficit. No evidence of edema, erythema or skin breakdown. Neurologic: Cranial nerves grossly intact. Ambulatory function not witnessed. Results Diagnostic Review MRI: non enhanced and reports reviewed MRI Findings: [facility] [place], [place] [phone] Magnetic Resonance Report Patient: ITALO SHELTON Date: 05/27/19 MR#: [id number]: Elizabeth HARO Acct ID:[id number]: [facility] Zip: [place] [address] Age: 83Location: 3W Sex: M Room/Bed: [facility] Att Phy: Antonia Rabago, MDDiagnosis: SEVERE BACK PAIN Sabrina Phy: Silvino Brewer MDService Date: 05/27/19 Fam Phy:Interpreting Phy: Lan Gabriel MD Admit Phy: Jovan Medina MD Ordering Phy: Robert Villalpando D.O. cc: ~ MRI OF THE LUMBAR SPINE WITHOUT CONTRAST CLINICAL HISTORY: Back and leg pain. COMPARISON STUDY: Lumbar spine CT May 22, 2019. Lumbar spine radiograph June 27, 2012. TECHNIQUE: Utilizing a 1.5 Shannan magnet and dedicated coil, multiplanar, multiecho imaging of the lumbar spine was performed without IV contrast. FINDINGS: For purposes of numbering on this exam, the L5-S1 disc space is assigned to axial image 23 of 25. This exam is compromised by motion artifact, particularly the axial images. Alignment is anatomic. Vertebral body heights are maintained. Discogenic changes are noted at multiple levels. There is no intracanalicular mass or fluid collection. The conus terminates at the T12-L1 level. L1-2: There is disc space narrowing with disc bulge, ligamentous hypertrophy and facet arthrosis. There is moderate to severe narrowing of the central canal and lateral recesses with mild bilateral neural foraminal stenosis. Patent AP canal measures 5.6 mm in dimension. L2-3: There is disc space narrowing with disc bulge, ligamentous hypertrophy and facet arthrosis. There is moderate narrowing of the central canal and lateral recesses as well as mild to moderate narrowing of both neural foramen. L3-4: There is disc space narrowing with ligamentous hypertrophy and facet art hrosis. There is moderate central canal and lateral recess narrowing with mild bilateral neural foraminal stenosis. L4-5: There is disc space narrowing with mild disc bulge. There is severe facet arthrosis with ligamentous hypertrophy. There is moderate to severe central canal stenosis. There is moderate during of both lateral recesses and the right neural foramen. L5-S1: There is disc bulge with small central disc protrusion. Central canal is patent. There is mild narrowing of the bilateral lateral recesses. The neural foramen are patent. IMPRESSION: 1. Moderate to severe multilevel central canal stenosis, moderate to severe at L1-L2 and L4-L5 with moderate central canal stenosis at L2-L3 and L3-L4. 2. No lumbar spine fracture. 3. Moderate multilevel neural foraminal stenosis. 4. Exam mildly compromised by motion artifact. ACT 112: Negative or not required by law. Electronically signed by: Lan Gabriel M.D. 05/27/2019 2:48 PM Dictated: 05/27/19 1440 Previous Records Review Previous Records: personally reviewed by me
[2019-05-29] MEDS: ACETAMINOPHEN 325 MG TAB PO PRN ×2 (09:31→16:16)
[2019-05-29] MEDS: HYDROCODONE/ACETAMOPHEN 5/325MG TAB PO PRN ×2 (13:25→21:16)
--- NOTE | 2019-05-29 15:06 | Hospitalist Progress Note ---
Date of Service May 29, 2019 Assessment & Plan (1) Intractable low back pain: presented with intractable back pain Due to spinal stenosis, MRI of lumbar spine ordered: IMPRESSION: 1. Moderate to severe multilevel central canal stenosis, moderate to severe at L1-L2 and L4-L5 with moderate central canal stenosis at L2-L3 and L3-L4. 2. No lumbar spine fracture. 3. Moderate multilevel neural foraminal stenosis. 4. Exam mildly compromised by motion artifact. MRI report updated to patient and patient's daughter present at bedside Family wants to proceed to conservative management, pain control Not interested for spinal decompression surgery with concern for poor recovery, Patient has underlying severe anxiety disorder, not be able to do well in rehab Appreciate input orthopedics, recommends pain management consult for possible epidural injection Pain management consulted: Recommended spinal injection, which patient refused Patient can be seen by pain management as an outpatient if needed Order for Neurontin for radicular pain Can complains of restless leg symptoms, started on Requip Severe anxiety disorder, obsessive-compulsive disorder: Was very anxious earlier to be discharged home, after counseling she decided to stay overnight, will be discharged home tomorrow in the morning when ride is available Continue on Lexapro: 40 mg daily, Patient's daughter reports patient has been taking it intermittently, which has worsened his anxiety symptoms recently On PRN Ativan as needed CODE STATUS: Full code Disposition: Plan to discharge home tomorrow Social service consulted for discharge planning Called patient's daughter: Noris Landa phone number #[phone] -left message (2) Lumbar stenosis: Subjective Patient states back pain is still the same, but able to get up and walk around, Feels to have a spinal epidural injection for radicular pain today Has not required much pain medication No fever or chills Plan to discharge home tomorrow morning Review of Systems Musculoskeletal: + radicular pain (radiation to both legs ) intractable back pain Physical Exam Constitutional: WD/WN, vitals as above + thin; no acute distress Eyes: PERRL, conjunctivae normal, anicteric sclerae ENMT: external ear and nose normal, oropharynx normal Neck: trachea midline, no thyromegaly Respiratory: normal respiratory effort, lungs clear to auscultation Cardiovascular: RRR, no murmur, no edema Gastrointestinal (Abdomen): normal bowel sounds, soft, nontender, no hepatosplenomegaly Musculoskeletal: Extremities: + limited ROM of extremities (due to back pain ) Skin: no rashes, warm and dry Neurologic: PERRL, EOMI, accommodation nl, no face palsy, no dysarthria Results & Data Vital Signs (Past 12 Hours) Vital Signs Temp Pulse Resp BP Pulse Ox 05/29/19 07:38 36.7 C 54 L 16 145/69 H 94 (1) Lumbar stenosis Neurogenic claudication status: without neurogenic claudication Qualified Code(s): M48.061 - Spinal stenosis, lumbar region without neurogenic claudication
[2019-05-29] MEDS: GABAPENTIN 100 MG CAP PO SCH (20:36)
[2019-05-29] MEDS: SENNA 8.6 MG TAB PO SCH (20:37)
[2019-05-29] MEDS: LORazepam 1 MG TAB PO PRN (20:38)
[2019-05-29] MEDS ORDERED: ROPINIROLE HCL 0.25 MG TABLET PO SCH (21:00)
[2019-05-30] MEDS: GABAPENTIN 100 MG CAP PO SCH (08:48)
[2019-05-30] MEDS: CITALOPRAM 40 MG TAB PO SCH (08:48)
[2019-05-30] MEDS: FINASTERIDE 5 MG TAB PO SCH (08:48)
[2019-05-30] MEDS: PANTOprazole 40 MG TAB PO SCH (08:48)
[2019-05-30] MEDS: TELMISARTAN 20 MG TAB PO SCH (08:48)
[2019-05-30] MEDS: MULTIVITAMIN TAB PO SCH (08:48)
[2019-05-30] MEDS: BETAMETHASONE DIP AUG 0.05% OINT 15 GM TUBE EXT SCH (08:49)
[2019-05-30] MEDS: DICLOFENAC SOD 1% GEL 100 GM TUBE EXT SCH (08:49)
--- NOTE | 2019-05-30 13:15 | Discharge Summary ---
Date of Service May 30, 2019 Admission HPI Per Admitting Provider DICTATED BY: Jovan Medina MD DATE OF ADMISSION: 05/27/2019 CHIEF COMPLAINT: Severe back pain. HISTORY OF PRESENT ILLNESS: An 83-year-old male with past medical history significant for moderate COPD, pleural plaque with presence of asbestosis, atherosclerotic cardiovascular disease, hypertension, chronic kidney disease stage III, irritable bowel syndrome, gastroparesis, GERD, eczema, osteoarthritis involving multiple joints, senile dementia, major depression, tobacco use disorder, sleep disturbance, who lives with his . Generally walks without any support. Comes in because of severe back pain. The patient was in the ER three since last week for severe back pain. CAT scan done on 05/22/2019 showed lumbar stenosis, most severe at L1-L2 level and L2-L3 level. The patient was given pain medication, but not helping much, but denies any numbness in the legs. No bowel or bladder incontinence. His is also sick at home. Otherwise he is doing okay. Has some mild headache, no blurred visions. Appetite is okay, swallows okay without any difficulty. No chest pain, no shortness of breath, no cough, no fevers, no nausea, no vomiting, no abdominal pain. Normal bowel and bladder movements. No swelling in the legs. Currently resting comfortably and hemodynamically stable. The patient is very hard of hearing. Son is in the room who helped with most of the history Principal Diagnosis Intractable back pain, lumbar stenosis Discharge Exam Constitutional WD/WN, vitals as above + thin; no acute distress Eyes PERRL, conjunctivae normal, anicteric sclerae ENMT external ear and nose normal, oropharynx normal Neck trachea midline, no thyromegaly Respiratory normal respiratory effort, lungs clear to auscultation Cardiovascular RRR, no murmur, no edema Gastrointestinal (Abdomen) normal bowel sounds, soft, nontender, no hepatosplenomegaly Musculoskeletal Extremities: + limited ROM of extremities (due to back pain ) Skin no rashes, warm and dry Neurologic PERRL, EOMI, accommodation nl, no face palsy, no dysarthria Discharge Data Allergies Allergy/AdvReac Type Severity Reaction Status Date / Time Iodinated Contrast Media Allergy Unknown HIVES Verified 05/26/19 23:26 pseudoephedrine Allergy Unknown UNSURE OF Verified 05/26/19 23:26 RX? Sulfa (Sulfonamide Allergy Unknown DOES NOT Verified 05/26/19 23:26 Antibiotics) KNOW RX tramadol AdvReac psyche Verified 05/26/19 23:26 complications Consultations 05/27/19 00:34 ED Decision to Admit Stat 05/27/19 02:06 Consult Case Management - Discharge Planning Routine 05/27/19 08:00 Consult Orthopedic Surgery Routine 05/28/19 11:38 Consult Pain Management Routine Ordered Studies 05/27/19 09:53 MR lumbar spine wo con Routine Hospital Course (1) Intractable low back pain: presented with intractable back pain Due to spinal stenosis, MRI of lumbar spine ordered: IMPRESSION: 1. Moderate to severe multilevel central canal stenosis, moderate to severe at L1-L2 and L4-L5 with moderate central canal stenosis at L2-L3 and L3-L4. 2. No lumbar spine fracture. 3. Moderate multilevel neural foraminal stenosis. 4. Exam mildly compromised by motion artifact. MRI report updated to patient and patient's daughter present at bedside Family wants to proceed to conservative management, pain control Not interested for spinal decompression surgery with concern for poor recovery, Patient has underlying severe anxiety disorder, not be able to do well in rehab Appreciate input orthopedics, recommends pain management consult for possible epidural injection Pain management consulted: Recommended spinal injection, which patient refused Patient can be seen by pain management as an outpatient if needed Order for Neurontin for radicular pain complains of restless leg symptoms, started on Requip Overall feels much better today, stable to be discharged home Severe anxiety disorder, obsessive-compulsive disorder: Was very anxious earlier to be discharged home, after counseling she decided to stay overnight, will be discharged home tomorrow in the morning when ride is available Continue on Lexapro: 40 mg daily, Patient's daughter reports patient has been taking it intermittently, which has worsened his anxiety symptoms recently On PRN Ativan as needed CODE STATUS: Full code Disposition: Patient is stable to be discharged home today (2) Lumbar stenosis: Total Time Total Time Spent Total Time Spent (In Minutes): Approximately 35 minutes Total Time Includes: Discharge Planning and Medication Reconciliation Discharge Plan Discharge Items Patient Disposition: Home - Home Health Services Reason For Visit: SEVERE BACK PAIN Discharge Diagnosis: Intractable back pain, lumbar stenosis Activity: Resume your previous activity Non-emergency contact: Primary Care Provider Call non-emergency contact if: you have any medication questions, your pain is not controlled and your temperature is above 101.5 Follow-up/Referrals: Silvino Brewer MD [Primary Care Provider] - 06/05/19 10:45 am Diet: Regular Addtl Attending Provider Instructions: please follow up with Pain management clinic for spinal steroid injection if you back pain getting worse /no relief with pain medications please drink plenty of water and continue to take stool softener ( Miralax /colace ) while taking [facility] ( pain medications usually causes constipation ) continue physical therapy at home Pending Studies at Discharge: No Stand-Alone Forms: My [facility] [employer], Smoking Cessation Medications and DC Order Prescriptions: New polyethylene glycol 3350 [Miralax] 17 gram Powder In Packet 17 g PO DAILY 30 Days Qty: 30 RF: 0 ropinirole 0.25 mg Tablet 0.25 mg PO HS 30 Days Qty: 30 RF: 3 gabapentin 100 mg Capsule 100 mg PO BID 30 Days Qty: 60 RF: 3 Continued citalopram 40 mg tablet 40 mg PO DAILY 30 Days Qty: 30 RF: 3 hydrocodone-acetaminophen 5-325 mg tablet 1 tab PO Q8H PRN (Reason: pain) Qty: 20 RF: 0 multivitamin Tablet 1 tab PO DAILY RF: 0 albuterol sulfate 2.5 mg /3 mL (0.083 %) Solution For Nebulization 2.5 mg INHALATION Q4 PRN (Reason: Shortness Of Breath Or Wheezing) RF: 0 triamcinolone acetonide 0.5 % cream 1 applic TOPICAL BID PRN (Reason: AFFECTED AREA ON HANDS) RF: 0 atorvastatin 10 mg tablet 10 mg PO HS RF: 0 betamethasone, augmented 0.05 % cream 1 applic TOPICAL BID RF: 0 aspirin [Aspir-81] 81 mg Tablet,Delayed Release (Dr/Ec) 81 mg PO DAILY RF: 0 acetaminophen [Tylenol Extra Strength] 500 mg Tablet 1,000 mg PO TID PRN (Reason: Pain) RF: 0 Ex-Lax (sennosides) 15 mg Tablet 15 mg PO HS RF: 0 pantoprazole [Protonix] 40 mg Tablet,Delayed Release (Dr/Ec) 40 mg PO BID RF: 0 telmisartan 40 mg tablet 20 mg PO DAILY RF: 0 nitroglycerin 0.4 mg tablet, sublingual 0.4 mg sublingual UD PRN (Reason: Chest Pain) RF: 0 lorazepam [Ativan] 1 mg tablet 1 mg PO TID RF: 0 finasteride 5 mg tablet 5 mg PO DAILY RF: 0 diclofenac sodium 1 % gel 4 g TOPICAL UD RF: 0 Qdywbstjvxz-Scvov-KOT Complex [id number] mg Tablet 1 tab PO UD RF: 0 Discharge Orders: Discharge Order (Routine); Ordered 05/30/19 Ordered By: Antonia Rabago Admission Data Admit Date/Time: 05/28/19 08:15 Attending Provider: Antonia Rabago Admit Provider: Jovan Medina Primary Care Provider: Silvino Brewer Other Providers: Jovan Medina ; Robert Villalpando Upendra Other Interventions: Discharge Summary Assessment (RN) Last Done: 05/30/19 12:03 DC Date/Time DO NOT enter until pt leaves facility: 05/30/19 12:34
== END 2019-05-30 12:34 | disposition home health service (06) ==
LOC: ED 23:01 → 3W 23:01 → 3N 05-27 17:50

== ENCOUNTER 2019-07-27 18:48 | Inpatient (IN) ==
[2019-07-27] MEDS ORDERED: ACETAMINOPHEN 500 MG TAB PO STA (19:22)
--- NOTE | 2019-07-27 19:24 | XRay Report ---
XR chest 1V portable CLINICAL HISTORY: Chest Pain dyspnea COMPARISON STUDY: 09/25/2015 FINDINGS: Mild chronic interstitial change. No acute infiltrate. Calcified granuloma right upper lobe . Pulmonary apices are clear. IMPRESSION: Chronic change. No acute process. ACT 112: Negative or not required by law. The above report was generated using voice recognition software. It may contain grammatical, syntax or spelling errors. Electronically signed by: Carlos Davila M.D. 07/27/2019 7:23 PM
--- NOTE | 2019-07-27 19:30 | Emergency Department Note ---
History of Present Illness General Chief complaint: Cardiac Assessment Stated complaint: PAIN IN LEG Time Seen by Provider: 07/27/19 18:59 Home Medications Home Medications Medication Instructions Recorded Confirmed Type Ex-Lax (sennosides) 15 mg PO HS 05/20/19 07/27/19 History Smmxijiqeob-Shbxa-BSV Complex 1 tab PO UD 05/20/19 07/27/19 History acetaminophen [Tylenol Extra 1,000 mg PO TID PRN 05/20/19 07/27/19 History Strength] albuterol sulfate 2.5 mg INHALATION Q4 PRN 05/20/19 07/27/19 History aspirin [Aspir-81] 81 mg PO DAILY 05/20/19 07/27/19 History betamethasone, augmented 1 applic TOPICAL BID 05/20/19 07/27/19 History diclofenac sodium 4 g TOPICAL UD 05/20/19 07/27/19 History lorazepam [Ativan] 1 mg PO TID 05/20/19 07/27/19 History multivitamin 1 tab PO DAILY 05/20/19 07/27/19 History nitroglycerin 0.4 mg SUBLINGUAL UD PRN 05/20/19 07/27/19 History telmisartan 20 mg PO DAILY 05/20/19 07/27/19 History triamcinolone acetonide 1 applic TOPICAL BID PRN 05/20/19 07/27/19 History citalopram 40 mg PO DAILY 30 Days #30 tab 05/30/19 07/27/19 Rx hydrocodone-acetaminophen 1 tab PO Q8H PRN #20 tab 05/30/19 07/27/19 Rx ropinirole 0.25 mg PO HS 30 Days #30 tab 05/30/19 07/27/19 Rx gabapentin 100 mg PO TID 07/27/19 07/27/19 History polyethylene glycol 3350 [Miralax] 17 g PO DAILY PRN 07/27/19 07/27/19 History Allergies Allergy/AdvReac Type Severity Reaction Status Date / Time Iodinated Contrast Media Allergy Unknown HIVES Verified 07/27/19 19:34 pseudoephedrine Allergy Unknown UNSURE OF Verified 07/27/19 19:34 RX? Sulfa (Sulfonamide Allergy Unknown DOES NOT Verified 07/27/19 19:34 Antibiotics) KNOW RX metoclopramide [From Reglan] AdvReac Severe MUSCLE Verified 07/27/19 19:33 TWITCHING atorvastatin AdvReac Intermediate Muscle Pain Verified 07/27/19 19:33 tramadol AdvReac psyche Verified 07/27/19 19:34 complications Past Med/Surg History Medical History (Updated 07/28/19 @ 00:38 by Israel Claros MD) AAA (abdominal aortic aneurysm) Arthritis Gastritis (Acute) GI bleed (Acute) Lumbar spondylosis (Chronic) Small bowel obstruction (Acute) Spinal stenosis (Inactive) Surgical History (Updated 06/05/19 @ 00:03 by Rosio Montenegro) History of abdominal aortic aneurysm (AAA) repair (Inactive) Social History Preferred Language: Syriac Communication Ability: Effective Shipping Specialist Required: No Beliefs That Will Affect Care: None marital status: Current Living Situation: Spouse Feels Safe at Home: Yes Smoking Status: Current every day smoker Tobacco Type: cigarettes ; Cigarettes Per Day: 5-6 ; Hx Alcohol Use: Yes Alcohol type: hard liquor Hx Substance Use: No Review of Systems A total of 10 systems reviewed and were otherwise negative Physical Exam Vital Signs Vital Signs - 24 hr 07/27/19 18:50 07/27/19 19:30 07/27/19 19:33 Temperature 36.8 C Temperature Source Oral Pulse Rate 83 80 77 Pulse Rate [Right] Pulse Rate from SpO2 Sensor Pulse Rhythm Regular Pulse Strength Normal Respiratory Rate 18 17 22 Respiratory Effort / Characteristics Non-Labored Spontaneous Respiratory Depth Normal Respiratory Pattern Regular Blood Pressure 143/75 H 138/62 Blood Pressure [Right Arm] Blood Pressure Mean 97 86 Blood Pressure Mean [Right Arm] Blood Pressure Position Sitting Pulse Oximetry 95 98 Oxygen Delivery Method Room Air Sepsis Recent Fever Within 48 Hours No Sepsis New/Unexplained Change in Mental Status No Sepsis Action Taken by Nursing No Action Required 07/27/19 20:00 07/27/19 20:01 07/27/19 20:02 Temperature Temperature Source Pulse Rate 74 75 74 Pulse Rate [Right] Pulse Rate from SpO2 Sensor 74 75 74 Pulse Rhythm Pulse Strength Respiratory Rate 21 15 13 Respiratory Effort / Characteristics Respiratory Depth Respiratory Pattern Blood Pressure 135/67 Blood Pressure [Right Arm] Blood Pressure Mean 104 Blood Pressure Mean [Right Arm] Blood Pressure Position Pulse Oximetry 96 97 96 Oxygen Delivery Method Sepsis Recent Fever Within 48 Hours Sepsis New/Unexplained Change in Mental Status Sepsis Action Taken by Nursing 07/27/19 20:30 07/27/19 21:00 07/27/19 21:30 Temperature Temperature Source Pulse Rate 68 61 63 Pulse Rate [Right] Pulse Rate from SpO2 Sensor 67 62 61 Pulse Rhythm Pulse Strength Respiratory Rate 16 11 L 19 Respiratory Effort / Characteristics Respiratory Depth Respiratory Pattern Blood Pressure 155/64 H 146/70 H 143/63 H Blood Pressure [Right Arm] Blood Pressure Mean 100 97 94 Blood Pressure Mean [Right Arm] Blood Pressure Position Pulse Oximetry 96 96 96 Oxygen Delivery Method Sepsis Recent Fever Within 48 Hours Sepsis New/Unexplained Change in Mental Status Sepsis Action Taken by Nursing 07/27/19 22:00 07/27/19 23:39 Temperature 36.9 C Temperature Source Pulse Rate 61 Pulse Rate [Right] 89 Pulse Rate from SpO2 Sensor 61 Pulse Rhythm Pulse Strength Respiratory Rate 18 16 Respiratory Effort / Characteristics Non-Labored Spontaneous Respiratory Depth Normal Respiratory Pattern Blood Pressure Blood Pressure [Right Arm] 131/83 Blood Pressure Mean Blood Pressure Mean [Right Arm] 99 Blood Pressure Position Pulse Oximetry 92 96 Oxygen Delivery Method Room Air Sepsis Recent Fever Within 48 Hours Sepsis New/Unexplained Change in Mental Status Sepsis Action Taken by Nursing GENERAL: Patient is a healthy-appearing well-nourished male HEAD: Normocephalic atraumatic EYES: Ocular movements intact pupils equal and react to light OROPHARYNX mucous membranes are moist no exudates present no erythema or edema present NECK: Supple no nuchal rigidity CHEST: Good equal expansion LUNGS: Clear and equal to auscultation CARDIAC: Normal S1 and S2 ABDOMEN: Soft nontender no guarding BACK: No CVA tenderness EXTREMITIES: No pain upon palpation normal muscle strength in all groups no clubbing cyanosis or edema NEURO: Patient is following commands is answering questions appropriately. Alert and oriented x3 Cranial Nerves 2-12 grossly intact Course Administered Medications Discontinued Medications Acetaminophen (Tylenol) 1,000 mg PO NOW STA Stop: 07/27/19 19:23 Last Admin: 07/27/19 19:45 Dose: 1,000 mg Documented by: [id number] Sodium Chloride (Nss 1000ml) 1,000 mls @ 999 mls/hr IV .Q1H1M ONE Stop: 07/27/19 20:56 Last Infusion: 07/27/19 22:52 Dose: 0 mls/hr Documented by: [id number] Admin: 07/27/19 20:02 Dose: 999 mls/hr Documented by: [id number] Piperacillin Sod/Tazobactam Sod (Zosyn) 4.5 gm in 120 mls @ 240 mls/hr IV NOW ONE Stop: 07/27/19 21:48 Last Infusion: 07/27/19 22:52 Dose: 0 mls/hr Documented by: [id number] Admin: 07/27/19 22:17 Dose: 240 mls/hr Documented by: [id number] Levofloxacin/Dextrose (Levaquin/D5w) 750 mg in 150 mls @ 100 mls/hr IV NOW STA Stop: 07/27/19 22:48 Last Infusion: 07/28/19 00:28 Dose: 0 mls/hr Documented by: [id number] Admin: 07/27/19 22:58 Dose: 100 mls/hr Documented by: [id number] Medical Decision Making Differential Diagnosis My differential diagnosis includes but is not limited to cardiac ischemia, myocardial infarction, and STEMI, pulmonary embolus, costochondritis Medical Records Attestation: I reviewed the patient's medical records. Home Medications Current Medication List: was personally reviewed by me Laboratory Data Attestation: I reviewed the patient's lab results. Result diagrams: 07/27/19 19:25 07/27/19 19:25 Lab Results 07/27/19 07/27/19 07/27/19 Range/Units 19:25 19:25 19:25 WBC 11.92 H (4.8-10.8) K/uL RBC 4.41 L (4.7-6.1) M/uL Hgb 13.9 L (14.0-18.0) g/dL Hct 41.3 L (42-52) % MCV 93.7 (80-100) fL MCH 31.5 (25-34) pg MCHC 33.7 (32-36) g/dL RDW Std Deviation 44.8 (36.4-46.3) fL RDW Coeff of Mick 13.0 (11.5-14.5) % Plt Count 258 (130-400) K/uL MPV 9.3 (7.4-10.4) fL Immature Gran % (Auto) 0.3 % Neut % (Auto) 77.7 % Lymph % (Auto) 14.0 % Coal % (Auto) 6.5 % Eos % (Auto) 1.2 % Baso % (Auto) 0.3 % Immature Gran # (Auto) 0.04 H (0.00-0.02) K/uL Neut # (Auto) 9.27 H (1.4-6.5) K/uL Lymph # (Auto) 1.67 (1.2-3.4) K/uL Coal # (Auto) 0.77 H (0.11-0.59) K/uL Eos # (Auto) 0.14 (0-0.5) K/uL Baso # (Auto) 0.03 (0-0.2) K/uL PT 10.5 (9.0-12.0) Seconds INR 1.0 (0.9-1.1) APTT 28.4 (21.0-31.0) Seconds PTT Ratio 1.0 Sodium 133 L (136-145) mmol/L Potassium 4.1 (3.5-5.1) mmol/L Chloride 103 (98-107) mmol/L Carbon Dioxide 27 (21-32) mmol/L Anion Gap 3.0 (3-11) BUN 12 (7-18) mg/dl Creatinine 1.26 (0.6-1.4) mg/dl Est Cr Clr Drug Dosing 45.0 ml/min Est GFR ( Amer) 59.9 Est GFR (Non-Af Amer) 51.7 BUN/Creatinine Ratio 9.4 L (10-20) Glucose 95 (70-99) mg/dl Calcium 8.7 (8.5-10.1) mg/dl Total Bilirubin 0.5 (0.2-1) mg/dl AST 19 (15-37) U/L ALT 23 (12-78) U/L Alkaline Phosphatase 55 (45-117) U/L Total Creatine Kinase 90 (39-308) U/L CK-MB (CK-2) 2.0 (0.5-3.6) ng/ml CK/CKMB % Calc 2.2 (0-3.0) Troponin I < 0.015 (0-0.045) ng/ml Total Protein 6.8 (6.4-8.2) gm/dl Albumin 3.5 (3.4-5.0) gm/dl Globulin 3.3 (2.5-4.0) gm/dl Albumin/Globulin Ratio 1.1 (0.9-2) Lipase 1071 H (73-393) U/L Influenza Type A (PCR) (Neg) Influenza Type B (PCR) (Neg) 07/27/19 Range/Units Unknown WBC (4.8-10.8) K/uL RBC (4.7-6.1) M/uL Hgb (14.0-18.0) g/dL Hct (42-52) % MCV (80-100) fL MCH (25-34) pg MCHC (32-36) g/dL RDW Std Deviation (36.4-46.3) fL RDW Coeff of Mick (11.5-14.5) % Plt Count (130-400) K/uL MPV (7.4-10.4) fL Immature Gran % (Auto) % Neut % (Auto) % Lymph % (Auto) % Coal % (Auto) % Eos % (Auto) % Baso % (Auto) % Immature Gran # (Auto) (0.00-0.02) K/uL Neut # (Auto) (1.4-6.5) K/uL Lymph # (Auto) (1.2-3.4) K/uL Coal # (Auto) (0.11-0.59) K/uL Eos # (Auto) (0-0.5) K/uL Baso # (Auto) (0-0.2) K/uL PT (9.0-12.0) Seconds INR (0.9-1.1) APTT (21.0-31.0) Seconds PTT Ratio Sodium (136-145) mmol/L Potassium (3.5-5.1) mmol/L Chloride (98-107) mmol/L Carbon Dioxide (21-32) mmol/L Anion Gap (3-11) BUN (7-18) mg/dl Creatinine (0.6-1.4) mg/dl Est Cr Clr Drug Dosing ml/min Est GFR ( Amer) Est GFR (Non-Af Amer) BUN/Creatinine Ratio (10-20) Glucose (70-99) mg/dl Calcium (8.5-10.1) mg/dl Total Bilirubin (0.2-1) mg/dl AST (15-37) U/L ALT (12-78) U/L Alkaline Phosphatase (45-117) U/L Total Creatine Kinase (39-308) U/L CK-MB (CK-2) (0.5-3.6) ng/ml CK/CKMB % Calc (0-3.0) Troponin I (0-0.045) ng/ml Total Protein (6.4-8.2) gm/dl Albumin (3.4-5.0) gm/dl Globulin (2.5-4.0) gm/dl Albumin/Globulin Ratio (0.9-2) Lipase (73-393) U/L Influenza Type A (PCR) Neg for Influ A (Neg) Influenza Type B (PCR) Neg for Influ B (Neg) Imaging Data Radiologist's Impression: Patient: ITALO CAMPOS Admit Date: 07/27/19 MR#: [id number] Address1: [address] Acct ID:[id number] Address2: Date: 1935 [facility] Zip: [place] [address] Age: 84 Location: ED Sex: M Room/Bed: Att Phy: Diagnosis: PAIN IN LEG Sabrina Phy: Silvino Brewer MD Service Date: 07/27/19 Fam Phy: Interpreting Phy: Carlos Davila MD Admit Phy: Ordering Phy: Israel Claros MD cc: ~ XR chest 1V portable CLINICAL HISTORY: Chest Pain dyspnea COMPARISON STUDY: 09/25/2015 FINDINGS: Mild chronic interstitial change. No acute infiltrate. Calcified granuloma right upper lobe. Pulmonary apices are clear. IMPRESSION: Chronic change. No acute process. ACT 112: Negative or not required by law. The above report was generated using voice recognition software. It may contain grammatical, syntax or spelling errors. Electronically signed by: Carlos Davila M.D. 07/27/2019 7:23 PM Dictated: 07/27/191921 Transcribed: 07/27/191921 [facility], [place] [phone] CT Scan Report Patient: ITALO CAMPOS RAdmit Date: 07/27/19 MR#: [id number]: [address] Acct ID:[id number]: Date: [address] [place] [address] Zip: [place] [address] Age: 84Location: ED Sex: M Room/Bed: Att Phy:Diagnosis: PAIN IN LEG Sabrina Phy: Silvino Brewer MDService Date: 07/27/19 Fam Phy:Interpreting Phy: Carlos Davila MD Admit Phy: Ordering Phy: Israel Claros MD cc: ~ CT abd pelvis wo con CT DOSE: 357.01 mGy.cm HISTORY: Pain Pt c/o pancreatitis TECHNIQUE: Multiaxial CT images of the abdomen and pelvis were performed without contrast. A dose lowering technique was utilized adhering to the principles of ALARA. COMPARISON STUDY: 05/20/2019 FINDINGS: Minimal parenchymal infiltrate left base. Calcification of the diaphragms. The liver spleen and pancreas appear unremarkable. Kidneys demonstrate several small cortical cyst. No evidence for hydronephrosis. Chronic perinephric infiltrative change. Nonobstructive bowel pattern. Normal appendix. No free fluid within the abdominal pelvic or inguinal regions. IMPRESSION: 1. Small parenchymal infiltrate left base. 2. Small chronic renal cysts as well as chronic perinephric infiltrative change. 3. No acute process currently of the abdomen or pelvis. ACT 112: Negative or not required by law. The above report was generated using voice recognition software. It may contain grammatical, syntax or spelling errors. Electronically signed by: Carlos Davila M.D. 07/27/2019 8:31 PM Dictated: 07/27/192023 Transcribed: 07/27/192023 ECG Data Attestation: I personally reviewed and interpreted this ECG as follows: Indication: + chest pain Rate (beats per minute): 76 Rhythm: + sinus rhythm ECG Intervals/blocks: + First degree AV block and + Left bundle branch block ECG ST segments: no Normal ST segments and no ST depression Comparison ECG Date: from (05/20/2019) Change: no significant change Blood Pressure Blood Pressure Findings: Elevated blood pressure Blood Pressure Disposition: elevated BP felt to be situational MDM Narrative This is an 84-year-old male who I believe is an alcoholic who drinks 4-8 beers a day. Patient reports walking downtown to drink alcohol when he developed chest pain. He presents to the emergency department pain-free however he does have an elevation in his white blood cell count. The patient does also have an elevation in his lipase therefore he was sent for CAT scan of the abdomen pelvis which was concerning for pneumonia. Due to the patient's alcoholism I strongly suspect he may have aspirated. Blood cultures were obtained and the patient was started on both Zosyn and Levaquin. I did discuss the case with the hospitalist service who did agree admit the patient. Patient was in agreement with the treatment plan. Impression & Plan Chest pain, Acute pancreatitis, Pneumonia Discharge Plan Visit Data Chief Complaint: Cardiac Assessment Stated Complaint: PAIN IN LEG ED Provider: Israel Claros Discharge Problem: Chest pain, Acute pancreatitis, Pneumonia Forms Stand Alone Forms: My [facility] Prescriptions Prescriptions: No Action ropinirole 0.25 mg Tablet 0.25 mg PO HS 30 Days Qty: 30 RF: 3 citalopram 40 mg tablet 40 mg PO DAILY 30 Days Qty: 30 RF: 3 hydrocodone-acetaminophen 5-325 mg tablet 1 tab PO Q8H PRN (Reason: pain) Qty: 20 RF: 0 multivitamin Tablet 1 tab PO DAILY RF: 0 albuterol sulfate 2.5 mg /3 mL (0.083 %) Solution For Nebulization 2.5 mg INHALATION Q4 PRN (Reason: Shortness Of Breath Or Wheezing) RF: 0 triamcinolone acetonide 0.5 % cream 1 applic TOPICAL BID PRN (Reason: AFFECTED AREA ON HANDS) RF: 0 betamethasone, augmented 0.05 % cream 1 applic TOPICAL BID RF: 0 aspirin [Aspir-81] 81 mg Tablet,Delayed Release (Dr/Ec) 81 mg PO DAILY RF: 0 acetaminophen [Tylenol Extra Strength] 500 mg Tablet 1,000 mg PO TID PRN (Reason: Pain) RF: 0 Ex-Lax (sennosides) 15 mg Tablet 15 mg PO HS RF: 0 telmisartan 40 mg tablet 20 mg PO DAILY RF: 0 nitroglycerin 0.4 mg tablet, sublingual 0.4 mg sublingual UD PRN (Reason: Chest Pain) RF: 0 lorazepam [Ativan] 1 mg tablet 1 mg PO TID RF: 0 diclofenac sodium 1 % gel 4 g TOPICAL UD RF: 0 Eexouwygsxy-Hjyhz-JSI Complex 245-993-24-0.5 mg Tablet 1 tab PO UD RF: 0 polyethylene glycol 3350 [Miralax] 17 gram Powder In Packet 17 g PO DAILY PRN (Reason: Constipation) RF: 0 gabapentin 100 mg capsule 100 mg PO TID RF: 0 Discharge Problem: Chest pain Qualifiers: Chest pain type: unspecified Qualified Code(s): R07.9 - Chest pain, unspecified Acute pancreatitis Qualifiers: Pancreatitis type: unspecified pancreatitis type Acute pancreatitis complication: unspecified Qualified Code(s): K85.90 - Acute pancreatitis without necrosis or infection, unspecified Pneumonia Qualifiers: Pneumonia type: due to unspecified organism Laterality: unspecified laterality Lung location: unspecified part of lung Qualified Code(s): J18.9 - Pneumonia, unspecified organism
[2019-07-27 19:36] LABS: Basophils # (auto) 0.03 K/uL (0-0.2); Basophils % (auto) 0.3 %; Eosinophils # (auto) 0.14 K/uL (0-0.5); Eosinophils % (auto) 1.2 %; Hematocrit (blood only) 41.3 % (42-52); Hemoglobin 13.9 g/dL (14.0-18.0); Immature Granulocytes # (auto) 0.04 K/uL (0.00-0.02); Immature Granulocytes % (auto) 0.3 %; Lymphocytes # (auto) 1.67 K/uL (1.2-3.4); Mean Corpuscular Hemoglobin 31.5 pg (25-34); Mean Corpuscular Hgb Conc 33.7 g/dL (32-36); Mean Corpuscular Volume 93.7 fL (80-100); Mean Platelet Volume 9.3 fL (7.4-10.4); Monocytes # (auto) 0.77 K/uL (0.11-0.59); Monocytes % (auto) 6.5 %; Neutrophils # (auto) 9.27 K/uL (1.4-6.5); Neutrophils % (auto) 77.7 %; Platelet Count 258 K/uL (130-400); RDW Standard Deviation 44.8 fL (36.4-46.3); Red Blood Count 4.41 M/uL (4.7-6.1); White Blood Count 11.92 K/uL (4.8-10.8)
[2019-07-27 19:50] LABS: Partial Thromboplastin Time 28.4 Seconds (21.0-31.0); Prothrombin Time 10.5 Seconds (9.0-12.0)
[2019-07-27 19:54] LABS: Alanine Aminotransferase 23 U/L (12-78); Albumin Level 3.5 gm/dl (3.4-5.0); Aspartate Aminotransferase 19 U/L (15-37); BUN Creatinine Ratio 9.4 (10-20); Blood Urea Nitrogen 12 mg/dl (7-18); Calcium 8.7 mg/dl (8.5-10.1); Carbon Dioxide 27 mmol/L (21-32); Chloride 103 mmol/L (98-107); Est GFR (African American) 59.9; Est GFR (Non-African American) 51.7; Glucose 95 mg/dl (70-99); Lipase 1071 U/L (73-393); Potassium 4.1 mmol/L (3.5-5.1); Sodium 133 mmol/L (136-145)
[2019-07-27] MEDS ORDERED: SODIUM CHLORIDE 0.9% 1000ML 1,000 ML IV ONE (19:56)
[2019-07-27 19:58] LABS: Albumin Globulin Ratio 1.1 (0.9-2); Alkaline Phosphatase 55 U/L (45-117); Bilirubin,Total 0.5 mg/dl (0.2-1); Creatine Kinase 90 U/L (39-308); Globulin 3.3 gm/dl (2.5-4.0); Total Protein 6.8 gm/dl (6.4-8.2); Troponin I < 0.015 ng/ml (0-0.045)
[2019-07-27 20:09] LABS: Influenza A virus by PCR Neg for Influ A (Neg); Influenza B virus by PCR Neg for Influ B (Neg)
--- NOTE | 2019-07-27 20:32 | CT Scan Report ---
CT abd pelvis wo con CT DOSE: 357.01 mGy.cm HISTORY: Pain Pt c/o pancreatitis TECHNIQUE: Multiaxial CT images of the abdomen and pelvis were performed without contrast. A dose lo wering technique was utilized adhering to the principles of ALARA. COMPARISON STUDY: 05/20/2019 FINDINGS: Minimal parenchymal infiltrate left base. Calcification of the diaphragms. The liver spleen and pancreas appear unremarkable. Kidneys demonstrate several small cortical cyst. No evidence for h ydronephrosis. Chronic perinephric infiltrative change. Nonobstructive bowel pattern. Normal appendix . No free fluid within the abdominal pelvic or inguinal regions. IMPRESSION: 1. Small parenchymal infiltrate left base. 2. Small chronic renal cysts as well as chronic perinephric infiltrative change. 3. No acute process currently of the abdomen or pelvis. ACT 112: Negative or not required by law. The above report was generated using voice recognition software. It may contain grammatical, syntax or spelling errors. Electronically signed by: Carlos Davila M.D. 07/27/2019 8:31 PM
[2019-07-27] MEDS ORDERED: PIPERACILLIN/TAZOBACTAM 4.5 GM/120 ML BAG IV ONE (21:19)
[2019-07-27] MEDS ORDERED: LEVOFLOXACIN/D5W 750 MG/150 ML BAG IV STA (21:19)
[2019-07-27] MEDS ORDERED: PIPERACILL/TAZOBAC CONSULT ACTIVE PRN (21:19)
--- NOTE | 2019-07-28 00:58 | History and Physical Report ---
DATE OF ADMISSION: 07/27/2019 CHIEF COMPLAINT: Chest pain and shortness of breath. HISTORY OF PRESENT ILLNESS: This is an 84-year-old male with past medical history significant for COPD, pleural plaque with presence of asbestos, hyperlipidemia, arteriosclerotic cardiovascular disease, chronic kidney disease stage III, irritable bowel syndrome, gastroparesis, GERD, history of eczema, osteoarthritis, restless leg syndrome, senile dementia, depression, tobacco abuse, sleep disturbance, anxiety state, presents with chest pain and short of breath. His got admitted into the hospital. The patient states that when he went home today he was having chest pain, short of breath and cough and bringing yellowish phlegm, so he came to the ER where chest pain got resolved now. He is feeling better. He had severe headache when he came in. The headache is better now. Denies any dizziness, no blurred vision, somewhat hard of hearing. Denies runny nose, no sore throat, no nausea, no vomiting, no abdominal pain. Normal bowel and bladder movements. Currently, resting comfortably and hemodynamically stable. Labs showed white count of 11.9 and questionable left lower lobe infiltrate in the CAT scan. Influenza is negative. Lipase is somewhat high. CAT scan of the abdomen and pelvis with contrast was unremarkable for any pancreatitis. ALLERGIES: REGLAN, ATORVASTATIN, IVP DYE, PSEUDOEPHEDRINE, SULFA, ANTIBIOTICS, TRAMADOL. PAST MEDICAL HISTORY: As mentioned above. PAST SURGICAL HISTORY: Colonoscopy, resection of internal hemorrhoids, EGDs, hemorrhoidectomy, cataract surgery. MEDICATIONS: The patient is on gabapentin 100 mg p.o. t.i.d., hydrocodone/acetaminophen 5/325 mg one tablet every 8 hours p.r.n., Ativan 1 mg p.o. t.i.d., MiraLax 17 g daily p.r.n., Requip 0.5 mg p.o. at bedtime, citalopram 40 mg p.o. daily, glucosamine chondroitin 1 tablet daily, multivitamins daily, telmisartan 20 mg p.o. daily, nitroglycerin 0.4 mg sublingual p.r.n., Tylenol 1000 mg p.o. t.i.d. p.r.n., aspirin 81 mg p.o. daily, albuterol nebulization every 4 hours p.r.n. FAMILY HISTORY: Significant for son has osteoarthritis, brother has brain tumor, diabetes. Sister has hypertension. Father had stroke. Mother had stroke. SOCIAL HISTORY: , smokes half pack a day for last 60 years. He drinks beers 2-3 beers every day. No drug use. REVIEW OF SYMPTOMS: As per HPI. Rest of review of systems negative. PHYSICAL EXAMINATION: GENERAL: The patient is of moderate build, not in acute distress. VITAL SIGNS: Temperature 36.9, pulse 89, respiratory rate 16, blood pressure 131/82, oxygen 96% on room air. HEENT: No pallor, no icterus. Pupils equal, round, reactive to light. NECK: No JVD, no neck masses, no carotid bruits. CARDIOVASCULAR: S1, S2 heard, regular rate and rhythm, no murmur, no gallop. RESPIRATORY SYSTEM: Normal AP diameter. No accessory muscle use. No wheezing, no crackles. ABDOMEN: Soft, bowel sounds present, nontender. No distention. CENTRAL NERVOUS SYSTEM: Cranial nerves II through XII grossly intact, nonfocal. EXTREMITIES: No edema, no erythema. LABORATORY DATA: WBC 11.9, hemoglobin 13.9, hematocrit 41.3, platelets 258. PT 10.5, INR 1, APTT 28.4. Sodium 133, potassium 4.1, chloride 103, bicarbonate 27, BUN 12, creatinine 1.2, serum glucose 95, calcium 8.7, total bilirubin 0.5, AST 19, ALT 23, alkaline phosphatase 55, total creatine kinase 90. Troponin I less than 0.015. Lipase 1071. Influenza A and B PCR negative. IMAGING DATA: Chest x-ray, chronic changes, no acute process. CT abdomen and pelvis, small parenchymal infiltrate left base. No acute process, . EKG sinus rhythm with first degree AV block at a rate of 76, left bundle branch block, no significant change from previous EKG. ASSESSMENT AND PLAN: This is an 84-year-old male who presents with chest pain, shortness of breath with cough, found to have pneumonia. 1. Chest pain, shortness of breath, cough with phlegm. CAT scan showed left base infiltrate. Received Levaquin and Zosyn in the ER. We will place the patient on IV Rocephin and doxycycline. Follow the cultures. Follow the response. 2. Chest pain probably from the above, but we will do serial cardiac enzymes and monitor. Repeat EKG in a.m. 3. Elevated lipase, but patient has no abdominal pain. CAT scan was unremarkable, possible non specific. Will follow lipase in a.m. 4. Alcoholism. The patient takes 2-3 beers every day. Denies any withdrawal symptoms in the past. Prophylactically, place him on gabapentin withdrawal protocol, will give him a banana bag with IV Ativan p.r.n. with gabapentin protocol and p.o. thiamine and folic acid in a.m. and monitor. 5. Tobacco abuse, needs counseling. 6. Restless syndrome. Continue with Requip. 7. History of chronic obstructive pulmonary disease. Continue home inhalers and nebs p.r.n. 8. Chronic kidney disease stage III, creatinine is 1.2. We will follow the labs. 9. Anxiety. Continue his home Ativan. 10. Hypertension. Continue his Micardis. Will monitor his blood pressure. 11. Depression. Continue his Celexa. 12. Deep venous thrombosis prophylaxis, sequential compression devices for now. DISPOSITION: Closely monitor in tele. Level 1 full code. Social Service to help with discharge planning. MTDD
[2019-07-28] MEDS ORDERED: LORazepam 2 MG/4 ML VIAL IV PRN (01:29)
[2019-07-28] MEDS ORDERED: LORazepam 1 MG/2 ML VIAL IV PRN (01:29)
[2019-07-28] MEDS ORDERED: GABAPENTIN 1200MG ALCOHOL WITHDRAWAL LOAD PO STA (01:29)
[2019-07-28] MEDS ORDERED: ALBUTEROL 0.083% NEBU SOLN 3 ML VIAL INH PRN (01:29)
[2019-07-28] MEDS ORDERED: ACETAMINOPHEN 325 MG TAB PO PRN (01:29)
[2019-07-28] MEDS ORDERED: TRIAMCINOLONE ACET 0.5% CR 15 GM TUBE TOP PRN (01:29)
[2019-07-28] MEDS ORDERED: ATIVAN IV ALCOHOL WITHDRAWL IV PRN (01:29)
[2019-07-28] MEDS ORDERED: NON-FORMULARY MEDICATION (Glucosam-Chond-Msm1-C-Mang-Bor [Glucosamine-Chond-Msm Complex] 1 PO SCH (01:29)
[2019-07-28] MEDS ORDERED: LORazepam 3 MG/6 ML VIAL IV PRN (01:29)
[2019-07-28] MEDS ORDERED: POLYETHYLENE (MIRALAX) 17 GM PACK PO PRN ×2 (01:29)
[2019-07-28] MEDS ORDERED: NITROGLYCERIN SL 0.4 MG/TAB TAB SL PRN (01:29)
[2019-07-28] MEDS ORDERED: ONDANSETRON INJ 2 MG/ML 2 ML VIAL IV PRN (01:29)
[2019-07-28] MEDS ORDERED: HYDROCODONE/ACETAMOPHEN 5/325MG TAB PO PRN ×2 (01:52→22:39)
[2019-07-28] MEDS ORDERED: GABAPENTIN 600 MG TAB PO ONE (02:00)
[2019-07-28] MEDS ORDERED: MULTI-VITAMIN INFUSION 10 ML, THIAMINE HCL 100 MG, FOLIC ACID 1 MG in SODIUM CHLORIDE 0... IV ONE (02:00)
[2019-07-28] MEDS: THIAMINE HCL 100 MG TAB PO SCH ×2 (02:20→09:09)
[2019-07-28] MEDS: FOLIC ACID 1 MG TAB PO SCH ×2 (02:20→09:09)
[2019-07-28] MEDS: DOXYCYCLINE HYCLATE 100 MG in DEXTROSE 5% 100 ML IV SCH ×2 (02:45→13:28)
[2019-07-28] MEDS: cefTRIAXone SODIUM 1,000 MG in DEXTROSE 5% 50 ML IV SCH (04:31)
[2019-07-28 06:04] LABS: Basophils # (auto) 0.04 K/uL (0-0.2); Basophils % (auto) 0.4 %; Eosinophils # (auto) 0.13 K/uL (0-0.5); Eosinophils % (auto) 1.3 %; Hematocrit (blood only) 38.3 % (42-52); Hemoglobin 12.8 g/dL (14.0-18.0); Immature Granulocytes # (auto) 0.02 K/uL (0.00-0.02); Immature Granulocytes % (auto) 0.2 %; Lymphocytes # (auto) 1.44 K/uL (1.2-3.4); Lymphocytes % (auto) 14.6 %; Mean Corpuscular Hemoglobin 31.7 pg (25-34); Mean Corpuscular Hgb Conc 33.4 g/dL (32-36); Mean Corpuscular Volume 94.8 fL (80-100); Mean Platelet Volume 8.8 fL (7.4-10.4); Monocytes % (auto) 8.1 %; Neutrophils # (auto) 7.44 K/uL (1.4-6.5); Neutrophils % (auto) 75.4 %; Platelet Count 244 K/uL (130-400); RDW Standard Deviation 45.4 fL (36.4-46.3); Red Blood Count 4.04 M/uL (4.7-6.1); White Blood Count 9.87 K/uL (4.8-10.8)
[2019-07-28 06:33] LABS: BUN Creatinine Ratio 10.9 (10-20); Calcium 8.4 mg/dl (8.5-10.1); Creatinine Clr Calc Pharmacy 48.8 ml/min; Est GFR (African American) 66.2; Est GFR (Non-African American) 57.1; Magnesium 2.1 mg/dl (1.8-2.4)
[2019-07-28 09:04] LABS: Folate (Folic Acid) > 24.00 ng/ml (>5.38); Vitamin B12 750 pg/ml (211-911)
[2019-07-28] MEDS: GABAPENTIN 600 MG TAB PO SCH ×3 (09:09→21:24)
[2019-07-28] MEDS: CITALOPRAM 40 MG TAB PO SCH (09:09)
[2019-07-28] MEDS: MULTIVITAMIN TAB PO SCH (09:10)
[2019-07-28] MEDS: ASPIRIN 81 MG ECTAB PO SCH (09:10)
[2019-07-28] MEDS: LORazepam 1 MG TAB PO SCH ×3 (09:10→21:28)
[2019-07-28] MEDS: TELMISARTAN 20 MG TAB PO SCH (09:10)
[2019-07-28] MEDS: BETAMETHASONE DIP AUG (DIPROLENE) 0.05% CR 15 GM TUBE EXT SCH ×2 (09:11→21:25)
[2019-07-28] MEDS: DICLOFENAC SOD 1% GEL 100 GM TUBE EXT SCH ×2 (09:11→21:25)
--- NOTE | 2019-07-28 09:17 | Hospitalist Progress Note ---
Date of Service July 28, 2019 Assessment & Plan Admission and Anticipated Discharge Date Admission Date: July 27, 2019 Results & Data ([facility]) Vital Signs (Past 12 Hours) Vital Signs Temp Pulse Pulse Resp BP BP Pulse Ox 07/28/19 07:51 36.4 C L 56 L 18 128/55 L 91 07/28/19 03:20 61 07/28/19 01:30 36.6 C 72 16 153/65 H 94 07/28/19 01:11 69 16 147/84 H 98 07/27/19 23:39 89 16 131/83 96 07/27/19 22:00 36.9 C 61 18 92 07/27/19 21:30 63 19 143/63 H 96 Laboratory Results 07/28/19 07/28/19 07/28/19 Range/Units 05:54 05:54 05:54 WBC (4.8-10.8) K/uL RBC (4.7-6.1) M/uL Hgb (14.0-18.0) g/dL Hct (42-52) % MCV (80-100) fL MCH (25-34) pg MCHC (32-36) g/dL RDW Std Deviation (36.4-46.3) fL RDW Coeff of Mick (11.5-14.5) % Plt Count (130-400) K/uL MPV (7.4-10.4) fL Immature Gran % (Auto) % Neut % (Auto) % Lymph % (Auto) % [place] % (Auto) % Eos % (Auto) % Baso % (Auto) % Immature Gran # (Auto) (0.00-0.02) K/uL Neut # (Auto) (1.4-6.5) K/uL Lymph # (Auto) (1.2-3.4) K/uL [place] # (Auto) (0.11-0.59) K/uL Eos # (Auto) (0-0.5) K/uL Baso # (Auto) (0-0.2) K/uL PT (9.0-12.0) Seconds INR (0.9-1.1) APTT (21.0-31.0) Seconds PTT Ratio Sodium (136-145) mmol/L Potassium (3.5-5.1) mmol/L Chloride (98-107) mmol/L Carbon Dioxide (21-32) mmol/L Anion Gap (3-11) BUN (7-18) mg/dl Creatinine (0.6-1.4) mg/dl Est Cr Clr Drug Dosing ml/min Est GFR ( Amer) Est GFR (Non-Af Amer) BUN/Creatinine Ratio (10-20) Glucose (70-99) mg/dl Calcium (8.5-10.1) mg/dl Magnesium (1.8-2.4) mg/dl Total Bilirubin (0.2-1) mg/dl AST (15-37) U/L ALT (12-78) U/L Alkaline Phosphatase (45-117) U/L Total Creatine Kinase (39-308) U/L CK-MB (CK-2) (0.5-3.6) ng/ml CK/CKMB % Calc (0-3.0) Troponin I < 0.015 (0-0.045) ng/ml Total Protein (6.4-8.2) gm/dl Albumin (3.4-5.0) gm/dl Globulin (2.5-4.0) gm/dl Albumin/Globulin Ratio (0.9-2) Lipase 150 (73-393) U/L Vitamin B12 750 (211-911) pg/ml Folate > 24.00 (>5.38) ng/ml Influenza Type A (PCR) (Neg) Influenza Type B (PCR) (Neg) 07/28/19 07/28/19 07/28/19 Range/Units 05:54 05:54 01:46 WBC 9.87 (4.8-10.8) K/uL RBC 4.04 L (4.7-6.1) M/uL Hgb 12.8 L (14.0-18.0) g/dL Hct 38.3 L (42-52) % MCV 94.8 (80-100) fL MCH 31.7 (25-34) pg MCHC 33.4 (32-36) g/dL RDW Std Deviation 45.4 (36.4-46.3) fL RDW Coeff of Mick 13.0 (11.5-14.5) % Plt Count 244 (130-400) K/uL MPV 8.8 (7.4-10.4) fL Immature Gran % (Auto) 0.2 % Neut % (Auto) 75.4 % Lymph % (Auto) 14.6 % [place] % (Auto) 8.1 % Eos % (Auto) 1.3 % Baso % (Auto) 0.4 % Immature Gran # (Auto) 0.02 (0.00-0.02) K/uL Neut # (Auto) 7.44 H (1.4-6.5) K/uL Lymph # (Auto) 1.44 (1.2-3.4) K/uL [place] # (Auto) 0.80 H (0.11-0.59) K/uL Eos # (Auto) 0.13 (0-0.5) K/uL Baso # (Auto) 0.04 (0-0.2) K/uL PT (9.0-12.0) Seconds INR (0.9-1.1) APTT (21.0-31.0) Seconds PTT Ratio Sodium 137 (136-145) mmol/L Potassium 4.0 (3.5-5.1) mmol/L Chloride 109 H (98-107) mmol/L Carbon Dioxide 25 (21-32) mmol/L Anion Gap 3.0 (3-11) BUN 13 (7-18) mg/dl Creatinine 1.16 (0.6-1.4) mg/dl Est Cr Clr Drug Dosing 48.8 ml/min Est GFR ( Amer) 66.2 Est GFR (Non-Af Amer) 57.1 BUN/Creatinine Ratio 10.9 (10-20) Glucose 103 H (70-99) mg/dl Calcium 8.4 L (8.5-10.1) mg/dl Magnesium 2.1 (1.8-2.4) mg/dl Total Bilirubin (0.2-1) mg/dl AST (15-37) U/L ALT (12-78) U/L Alkaline Phosphatase (45-117) U/L Total Creatine Kinase (39-308) U/L CK-MB (CK-2) (0.5-3.6) ng/ml CK/CKMB % Calc (0-3.0) Troponin I < 0.015 (0-0.045) ng/ml Total Protein (6.4-8.2) gm/dl Albumin (3.4-5.0) gm/dl Globulin (2.5-4.0) gm/dl Albumin/Globulin Ratio (0.9-2) Lipase (73-393) U/L Vitamin B12 (211-911) pg/ml Folate (>5.38) ng/ml Influenza Type A (PCR) (Neg) Influenza Type B (PCR) (Neg) 07/27/19 07/27/19 07/27/19 Range/Units Unknown 19:25 19:25 WBC (4.8-10.8) K/uL RBC (4.7-6.1) M/uL Hgb (14.0-18.0) g/dL Hct (42-52) % MCV (80-100) fL MCH (25-34) pg MCHC (32-36) g/dL RDW Std Deviation (36.4-46.3) fL RDW Coeff of Mick (11.5-14.5) % Plt Count (130-400) K/uL MPV (7.4-10.4) fL Immature Gran % (Auto) % Neut % (Auto) % Lymph % (Auto) % [place] % (Auto) % Eos % (Auto) % Baso % (Auto) % Immature Gran # (Auto) (0.00-0.02) K/uL Neut # (Auto) (1.4-6.5) K/uL Lymph # (Auto) (1.2-3.4) K/uL [place] # (Auto) (0.11-0.59) K/uL Eos # (Auto) (0-0.5) K/uL Baso # (Auto) (0-0.2) K/uL PT 10.5 (9.0-12.0) Seconds INR 1.0 (0.9-1.1) APTT 28.4 (21.0-31.0) Seconds PTT Ratio 1.0 Sodium 133 L (136-145) mmol/L Potassium 4.1 (3.5-5.1) mmol/L Chloride 103 (98-107) mmol/L Carbon Dioxide 27 (21-32) mmol/L Anion Gap 3.0 (3-11) BUN 12 (7-18) mg/dl Creatinine 1.26 (0.6-1.4) mg/dl Est Cr Clr Drug Dosing 45.0 ml/min Est GFR ( Amer) 59.9 Est GFR (Non-Af Amer) 51.7 BUN/Creatinine Ratio 9.4 L (10-20) Glucose 95 (70-99) mg/dl Calcium 8.7 (8.5-10.1) mg/dl Magnesium (1.8-2.4) mg/dl Total Bilirubin 0.5 (0.2-1) mg/dl AST 19 (15-37) U/L ALT 23 (12-78) U/L Alkaline Phosphatase 55 (45-117) U/L Total Creatine Kinase 90 (39-308) U/L CK-MB (CK-2) 2.0 (0.5-3.6) ng/ml CK/CKMB % Calc 2.2 (0-3.0) Troponin I < 0.015 (0-0.045) ng/ml Total Protein 6.8 (6.4-8.2) gm/dl Albumin 3.5 (3.4-5.0) gm/dl Globulin 3.3 (2.5-4.0) gm/dl Albumin/Globulin Ratio 1.1 (0.9-2) Lipase 1071 H (73-393) U/L Vitamin B12 (211-911) pg/ml Folate (>5.38) ng/ml Influenza Type A (PCR) Neg for Influ A (Neg) Influenza Type B (PCR) Neg for Influ B (Neg) 07/27/19 Range/Units 19:25 WBC 11.92 H (4.8-10.8) K/uL RBC 4.41 L (4.7-6.1) M/uL Hgb 13.9 L (14.0-18.0) g/dL Hct 41.3 L (42-52) % MCV 93.7 (80-100) fL MCH 31.5 (25-34) pg MCHC 33.7 (32-36) g/dL RDW Std Deviation 44.8 (36.4-46.3) fL RDW Coeff of Mick 13.0 (11.5-14.5) % Plt Count 258 (130-400) K/uL MPV 9.3 (7.4-10.4) fL Immature Gran % (Auto) 0.3 % Neut % (Auto) 77.7 % Lymph % (Auto) 14.0 % [place] % (Auto) 6.5 % Eos % (Auto) 1.2 % Baso % (Auto) 0.3 % Immature Gran # (Auto) 0.04 H (0.00-0.02) K/uL Neut # (Auto) 9.27 H (1.4-6.5) K/uL Lymph # (Auto) 1.67 (1.2-3.4) K/uL [place] # (Auto) 0.77 H (0.11-0.59) K/uL Eos # (Auto) 0.14 (0-0.5) K/uL Baso # (Auto) 0.03 (0-0.2) K/uL PT (9.0-12.0) Seconds INR (0.9-1.1) APTT (21.0-31.0) Seconds PTT Ratio Sodium (136-145) mmol/L Potassium (3.5-5.1) mmol/L Chloride (98-107) mmol/L Carbon Dioxide (21-32) mmol/L Anion Gap (3-11) BUN (7-18) mg/dl Creatinine (0.6-1.4) mg/dl Est Cr Clr Drug Dosing ml/min Est GFR ( Amer) Est GFR (Non-Af Amer) BUN/Creatinine Ratio (10-20) Glucose (70-99) mg/dl Calcium (8.5-10.1) mg/dl Magnesium (1.8-2.4) mg/dl Total Bilirubin (0.2-1) mg/dl AST (15-37) U/L ALT (12-78) U/L Alkaline Phosphatase (45-117) U/L Total Creatine Kinase (39-308) U/L CK-MB (CK-2) (0.5-3.6) ng/ml CK/CKMB % Calc (0-3.0) Troponin I (0-0.045) ng/ml Total Protein (6.4-8.2) gm/dl Albumin (3.4-5.0) gm/dl Globulin (2.5-4.0) gm/dl Albumin/Globulin Ratio (0.9-2) Lipase (73-393) U/L Vitamin B12 (211-911) pg/ml Folate (>5.38) ng/ml Influenza Type A (PCR) (Neg) Influenza Type B (PCR) (Neg) Diagnostic Findings CXR FINDINGS: Mild chronic interstitial change. No acute infiltrate. Calcified gran uloma right upper lobe. Pulmonary apices are clear. IMPRESSION: Chronic change. No acute process. CT Abdomen/ pelvis IMPRESSION: 1. Small parenchymal infiltrate left base. 2. Small chronic renal cysts as well as chronic perinephric infiltrative change. 3. No acute process currently of the abdomen or pelvis. Medications Administered Current Inpatient Medications Acetaminophen (Tylenol) 650 mg PO Q4H PRN PRN Reason: Pain or Fever Stop: 08/27/19 01:28 Hydrocodone Bitart/Acetaminophen ([place] 5/325) 1 tab PO Q8H PRN PRN Reason: Pain Stop: 08/11/19 01:51 Albuterol (Ventolin 0.083% 2.5mg/3ml) 2.5 mg INH Q4 PRN PRN Reason: Shortness Of Breath Or Wheezing Stop: 08/27/19 01:28 Aspirin (Ecotrin Ectab) 81 mg PO DAILY [facility] Stop: 08/27/19 08:59 Last Admin: 07/28/19 09:10 Dose: 81 mg Documented by: Betamethasone Dipropion Augmented (Diprolene 0.05%) 1 appln EXT BID [facility] Stop: 08/27/19 08:59 Last Admin: 07/28/19 09:11 Dose: 1 appln Documented by: Citalopram Hydrobromide (Celexa) 40 mg PO DAILY [facility] Stop: 08/27/19 08:59 Last Admin: 07/28/19 09:09 Dose: 40 mg Documented by: Diclofenac Sodium (Voltaren 1% Top) 4 gm EXT BID [facility] Stop: 08/27/19 08:59 Last Admin: 07/28/19 09:11 Dose: 4 gm Documented by: Folic Acid (Folvite) 1 mg PO QAM [facility] Stop: 08/27/19 01:28 Last Admin: 07/28/19 09:09 Dose: 1 mg Documented by: Gabapentin (Neurontin) 100 mg PO TID [facility] Stop: 08/30/19 20:59 Gabapentin (Neurontin) 600 mg PO Q6H [facility] Stop: 07/28/19 14:01 Last Admin: 07/28/19 09:09 Dose: 600 mg Documented by: Gabapentin (Neurontin) 600 mg PO Q8H [facility] Stop: 07/29/19 14:01 Gabapentin (Neurontin) 600 mg PO Q12H [facility] Stop: 07/30/19 14:01 Gabapentin (Neurontin) 600 mg PO Q24H [facility] Stop: 07/31/19 14:01 Lorazepam (Ativan) 2 mg in 4 mls @ 4 mls/min IV UD PRN; Protocol PRN Reason: EtOH Withdrawl AWSS Score 8,9 Stop: 08/27/19 01:28 Lorazepam (Ativan) 3 mg in 6 mls @ 4 mls/min IV ONCE PRN; Protocol PRN Reason: EtOH Withdrawl AWSS Score >=10 Stop: 08/27/19 01:28 Ceftriaxone Sodium 1,000 mg/ (Dextrose) 50 mls @ 100 mls/hr IV Q24H [facility]; Protocol Stop: 08/04/19 03:59 Last Infusion: 07/28/19 05:10 Dose: Infused Documented by: Doxycycline Hyclate 100 mg/ (Dextrose) 110 mls @ 50 mls/hr IV Q12H [facility] Stop: 08/04/19 01:59 Last Infusion: 07/28/19 05:10 Dose: Infused Documented by: Lorazepam (Ativan) 1 mg in 2 mls @ 2 mls/min IV UD PRN; Protocol PRN Reason: EtOH Withdrawl AWSS Score 6,7 Stop: 08/27/19 01:28 Lorazepam (Ativan) 1 mg PO TID [facility] Stop: 08/27/19 08:59 Last Admin: 07/28/19 09:10 Dose: 1 mg Documented by: Multivitamins (Multivitamin Tab) 1 tab PO DAILY [facility] Stop: 08/27/19 08:59 Last Admin: 07/28/19 09:10 Dose: 1 tab Documented by: Nitroglycerin (Nitrostat) 0.4 mg SL UD PRN PRN Reason: Chest Pain Stop: 08/27/19 01:28 Ondansetron HCl (Zofran) 4 mg IV Q6H PRN PRN Reason: Nausea Stop: 08/27/19 01:28 Polyethylene Glycol (Miralax Powder Packet) 17 gm PO DAILY PRN PRN Reason: Constipation Stop: 08/27/19 01:28 Ropinirole HCl (Requip) 0.25 mg PO [facility] Stop: 08/27/19 20:59 Sennosides (Senokot) 17.2 mg PO [facility] Stop: 08/27/19 20:59 Telmisartan (Micardis) 20 mg PO DAILY [facility] Stop: 08/27/19 08:59 Last Admin: 07/28/19 09:10 Dose: 20 mg Documented by: Thiamine HCl ([facility]itamin B-1) [facility] Stop: 08/27/19 01:59 Last Admin: 07/28/19 09:09 Dose: 100 mg Documented by: Triamcinolone Acetonide (Kenalog 0.5%) 1 appln TOP BID PRN PRN Reason: AFFECTED AREA ON HANDS Stop: 08/27/19 01:28
--- NOTE | 2019-07-28 16:19 | Electrocardiogram Report ---
Test Reason : Blood Pressure : / mmHG Vent. Rate : 076 BPM Atrial Rate : 076 BPM P-R Int : 244 ms QRS Dur : 150 ms QT Int : 432 ms P-R-T Axes : 066 035 093 degrees QTc Int : 486 ms Sinus rhythm with 1st degree A-V block Left bundle branch block Abnormal ECG When compared with ECG of 20-MAY-2019 22:21, No significant change was found Confirmed by Gabriel Mcbride ([id number]) on 07/28/2019 4:18:44 PM Referred By: REFERRED SELF Confirmed By:Gabriel Mcbride
--- NOTE | 2019-07-28 16:39 | Electrocardiogram Report ---
Test Reason : Blood Pressure : / mmHG Vent. Rate : 055 BPM Atrial Rate : 000 BPM P-R Int : 000 ms QRS Dur : 152 ms QT Int : 520 ms P-R-T Axes : 000 026 014 degrees QTc Int : 497 ms Sinus bradycardia with 1st degree A-V block Left bundle branch block Abnormal ECG When compared with ECG of 27-JUL-2019 18:57, (unconfirmed) HR has decreased Confirmed by Gabriel Mcbride ([id number]) on 07/28/2019 4:38:38 PM Referred By: REFERRED SELF Confirmed By:Gabriel Mcbride
--- NOTE | 2019-07-28 16:59 | Electrocardiogram Report ---
Test Reason : Blood Pressure : / mmHG Vent. Rate : 056 BPM Atrial Rate : 056 BPM P-R Int : 288 ms QRS Dur : 158 ms QT Int : 504 ms P-R-T Axes : 057 054 070 degrees QTc Int : 486 ms Sinus bradycardia with 1st degree A-V block Left bundle branch block Abnormal ECG No previous ECGs available Confirmed by Gabriel Mcbride ([id number]) on 07/28/2019 4:59:07 PM Referred By: REFERRED SELF Confirmed By:Gabriel Mcbride
[2019-07-28] MEDS ORDERED: ROPINIROLE HCL 0.25 MG TABLET PO SCH (21:00)
[2019-07-28] MEDS ORDERED: SENNA 8.6 MG TAB PO SCH (21:00)
--- NOTE | 2019-07-28 22:21 | Hospitalist Progress Note ---
Date of Service July 28, 2019 Assessment & Plan (1) Chest pain: Acute chest pain after increased anxiety noted during recent PCP visit last week with efforts to cut back on several dependencies including excessive coffee and alcohol. His also went into the hospital and was intubated. Workup subsequently revealed a small pneumonia for which he was placed on abx. He reports no chest pain since admission and serial cardiac enzymes were negative. LBBB noted on EKG and this is chronic. He has known CAD and is medically managed with ASA 81mg daily, Micardis 20mg daily. Not on statin with noted allergy. No further workup at this time. (2) Pneumonia: Symptoms improved on abx. Flu is negative. Awaiting blood cultures and will ensure clinical stability overnight. Afebrile since admission. (3) Elevated lipase: resolved. Uncertain cause but doesn't appear this was a clinical pancreatitis. (4) ETOH abuse: was placed on alcohol withdrawal precautions since admission. No clear withdrawal signs, however, uncertain of timing of last drink. Known anxiety at baseline. Cont Ativan PRN. (5) Smoker: Encourage to quit. Nicoderm PRN (6) Anxiety: Cont citalopram per home regimen with PRN Ativan. (7) CAD (coronary artery disease): medical management as stated above. (8) CKD (chronic kidney disease), stage III: At baseline. Avoid nephrotoxic substances and renally dose medications as needed. (9) DVT prophylaxis: Lovenox Full Code Dispo-likely to home in am as long as he continues to remain afebrile and blood cultures are negative. DO [facility] [email or web address] [facility] Admission and Anticipated Discharge Date Admission Date: July 27, 2019 Anticipated date of discharge: 07/29/19 Results & Data ([facility]) Vital Signs (Past 12 Hours) Vital Signs Temp Pulse Pulse Resp BP Pulse Ox 07/28/19 19:42 36.8 C 82 18 123/59 L 98 07/28/19 15:52 55 L 07/28/19 15:17 36.7 C 42 L 16 106/58 L 95 07/28/19 12:00 36.8 C 52 L 18 123/65 94 Laboratory Results Short CBC 07/28/19 Range/Units 05:54 WBC 9.87 (4.8-10.8) K/uL Hgb 12.8 L (14.0-18.0) g/dL Hct 38.3 L (42-52) % Plt Count 244 (130-400) K/uL BMP 07/28/19 05:54 Sodium 137 Potassium 4.0 Chloride 109 H Carbon Dioxide 25 BUN 13 Creatinine 1.16 Glucose 103 H Calcium 8.4 L Cardiac Enzymes 07/28/19 07/28/19 07/28/19 Range/Units 01:46 05:54 13:13 Troponin I < 0.015 < 0.015 < 0.015 (0-0.045) ng/ml Diagnostic Findings XR chest 1V portable CLINICAL HISTORY: Chest Pain dyspnea COMPARISON STUDY: 09/25/2015 FINDINGS: Mild chronic interstitial change. No acute infiltrate. Calcified granuloma right upper lobe. Pulmonary apices are clear. IMPRESSION: Chronic change. No acute process. CT abd pelvis wo con HISTORY: Pain Pt c/o pancreatitis FINDINGS: Minimal parenchymal infiltrate left base. Calcification of the diaphragms. The liver spleen and pancreas appear unremarkable. Kidneys demonstrate several small cortical cyst. No evidence for hydronephrosis. Chronic perinephric infiltrative change. Nonobstructive bowel pattern. Normal appendix. No free fluid within the abdominal pelvic or inguinal regions. IMPRESSION: 1. Small parenchymal infiltrate left base. 2. Small chronic renal cysts as well as chronic perinephric infiltrative change. 3. No acute process currently of the abdomen or pelvis. Medications Administered Current Inpatient Medications Acetaminophen (Tylenol) 650 mg PO Q4H PRN PRN Reason: Pain or Fever Stop: 08/27/19 01:28 Last Admin: 07/28/19 22:19 Dose: 650 mg Documented by: Hydrocodone Bitart/Acetaminophen ([place] 5/325) 1 tab PO Q8H PRN PRN Reason: Pain Stop: 08/11/19 01:51 Albuterol (Ventolin 0.083% 2.5mg/3ml) 2.5 mg INH Q4 PRN PRN Reason: Shortness Of Breath Or Wheezing Stop: 08/27/19 01:28 Aspirin (Ecotrin Ectab) 81 mg PO DAILY [facility] Stop: 08/27/19 08:59 Last Admin: 07/28/19 09:10 Dose: 81 mg Documented by: Betamethasone Dipropion Augmented (Diprolene 0.05%) 1 appln EXT BID [facility] Stop: 08/27/19 08:59 Last Admin: 07/28/19 21:25 Dose: Not Given Documented by: Citalopram Hydrobromide (Celexa) 40 mg PO DAILY [facility] Stop: 08/27/19 08:59 Last Admin: 07/28/19 09:09 Dose: 40 mg Documented by: Diclofenac Sodium (Voltaren 1% Top) 4 gm EXT BID [facility] Stop: 08/27/19 08:59 Last Admin: 07/28/19 21:25 Dose: Not Given Documented by: Folic Acid (Folvite) 1 mg PO QAM [facility] Stop: 08/27/19 01:28 Last Admin: 07/28/19 09:09 Dose: 1 mg Documented by: Gabapentin (Neurontin) 100 mg PO TID [facility] Stop: 08/30/19 20:59 Gabapentin (Neurontin) 600 mg PO Q8H [facility] Stop: 07/29/19 14:01 Last Admin: 07/28/19 21:24 Dose: 600 mg Documented by: Gabapentin (Neurontin) 600 mg PO Q12H [facility] Stop: 07/30/19 14:01 Gabapentin (Neurontin) 600 mg PO Q24H [facility] Stop: 07/31/19 14:01 Lorazepam (Ativan) 2 mg in 4 mls @ 4 mls/min IV UD PRN; Protocol PRN Reason: EtOH Withdrawl AWSS Score 8,9 Stop: 08/27/19 01:28 Lorazepam (Ativan) 3 mg in 6 mls @ 4 mls/min IV ONCE PRN; Protocol PRN Reason: EtOH Withdrawl AWSS Score >=10 Stop: 08/27/19 01:28 Ceftriaxone Sodium 1,000 mg/ (Dextrose) 50 mls @ 100 mls/hr IV Q24H [facility]; Protocol Stop: 08/04/19 03:59 Last Infusion: 07/28/19 05:10 Dose: Infused Documented by: Doxycycline Hyclate 100 mg/ (Dextrose) 110 mls @ 50 mls/hr IV Q12H [facility] Stop: 08/04/19 01:59 Last Infusion: 07/28/19 15:45 Dose: Infused Documented by: Lorazepam (Ativan) 1 mg in 2 mls @ 2 mls/min IV UD PRN; Protocol PRN Reason: EtOH Withdrawl AWSS Score 6,7 Stop: 08/27/19 01:28 Lorazepam (Ativan) 1 mg PO TID [facility] Stop: 08/27/19 08:59 Last Admin: 07/28/19 21:28 Dose: 1 mg Documented by: Multivitamins (Multivitamin Tab) 1 tab PO DAILY [facility] Stop: 08/27/19 08:59 Last Admin: 07/28/19 09:10 Dose: 1 tab Documented by: Nitroglycerin (Nitrostat) 0.4 mg SL UD PRN PRN Reason: Chest Pain Stop: 08/27/19 01:28 Ondansetron HCl (Zofran) 4 mg IV Q6H PRN PRN Reason: Nausea Stop: 08/27/19 01:28 Polyethylene Glycol (Miralax Powder Packet) 17 gm PO DAILY PRN PRN Reason: Constipation Stop: 08/27/19 01:28 Ropinirole HCl (Requip) 0.25 mg PO [facility] Stop: 08/27/19 20:59 Last Admin: 07/28/19 21:25 Dose: 0.25 mg Documented by: Sennosides (Senokot) 17.2 mg PO HS [facility] Stop: 08/27/19 20:59 Last Admin: 07/28/19 21:26 Dose: 17.2 mg Documented by: Telmisartan (Micardis) 20 mg PO DAILY [facility] Stop: 08/27/19 08:59 Last Admin: 07/28/19 09:10 Dose: 20 mg Documented by: Thiamine HCl (Vitamin B-1) 100 mg PO QAM [facility] Stop: 08/27/19 01:59 Last Admin: 07/28/19 09:09 Dose: 100 mg Documented by: Triamcinolone Acetonide (Kenalog 0.5%) 1 appln TOP BID PRN PRN Reason: AFFECTED AREA ON HANDS Stop: 08/27/19 01:28 (1) Chest pain Chest pain type: unspecified Qualified Code(s): R07.9 - Chest pain, unspecified (2) Pneumonia Laterality: unspecified laterality Lung location: unspecified part of lung Pneumonia type: due to unspecified organism Qualified Code(s): J18.9 - Pneumonia, unspecified organism
[2019-07-28] MEDS ORDERED: NICOTINE 21 MG/24 HR TDSY TD PRN (22:40)
[2019-07-29] MEDS: DOXYCYCLINE HYCLATE 100 MG in DEXTROSE 5% 100 ML IV SCH (01:25)
[2019-07-29] MEDS: cefTRIAXone SODIUM 1,000 MG in DEXTROSE 5% 50 ML IV SCH (03:43)
[2019-07-29] MEDS: GABAPENTIN 600 MG TAB PO SCH (05:47)
[2019-07-29 06:47] LABS: Hematocrit (blood only) 39.7 % (42-52); Hemoglobin 13.2 g/dL (14.0-18.0); Mean Corpuscular Hemoglobin 31.3 pg (25-34); Mean Corpuscular Hgb Conc 33.2 g/dL (32-36); Mean Corpuscular Volume 94.1 fL (80-100); Mean Platelet Volume 9.4 fL (7.4-10.4); Platelet Count 254 K/uL (130-400); RDW Coefficient of Variation 13.2 % (11.5-14.5); RDW Standard Deviation 45.2 fL (36.4-46.3); Red Blood Count 4.22 M/uL (4.7-6.1); White Blood Count 8.05 K/uL (4.8-10.8)
[2019-07-29 07:23] LABS: BUN Creatinine Ratio 10.6 (10-20); Calcium 8.3 mg/dl (8.5-10.1); Creatinine Clr Calc Pharmacy 46.8 ml/min; Est GFR (African American) 62.9; Est GFR (Non-African American) 54.3; Potassium 3.7 mmol/L (3.5-5.1)
[2019-07-29] MEDS: BETAMETHASONE DIP AUG (DIPROLENE) 0.05% CR 15 GM TUBE EXT SCH (08:34)
[2019-07-29] MEDS: LORazepam 1 MG TAB PO SCH (08:34)
[2019-07-29] MEDS: DICLOFENAC SOD 1% GEL 100 GM TUBE EXT SCH (08:35)
[2019-07-29] MEDS: TELMISARTAN 20 MG TAB PO SCH (08:35)
[2019-07-29] MEDS: FOLIC ACID 1 MG TAB PO SCH (08:35)
[2019-07-29] MEDS: THIAMINE HCL 100 MG TAB PO SCH (08:35)
[2019-07-29] MEDS: CITALOPRAM 40 MG TAB PO SCH (08:35)
[2019-07-29] MEDS: ASPIRIN 81 MG ECTAB PO SCH (08:35)
[2019-07-29] MEDS: MULTIVITAMIN TAB PO SCH (08:35)
--- NOTE | 2019-07-29 11:02 | Discharge Summary ---
Date of Service July 29, 2019 Admission HPI Per Admitting Provider HISTORY OF PRESENT ILLNESS: This is an 84-year-old male with past medical history significant for COPD, pleural plaque with presence of asbestos, hyperlipidemia, arteriosclerotic cardiovascular disease, chronic kidney disease stage III, irritable bowel syndrome, gastroparesis, GERD, history of eczema, osteoarthritis, restless leg syndrome, senile dementia, depression, tobacco abuse, sleep disturbance, anxiety state, presents with chest pain and short of breath. His got admitted into the hospital. The patient states that when he went home today he was having chest pain, short of breath and cough and bringing yellowish phlegm, so he came to the ER where chest pain got resolved now. He is feeling better. He had severe headache when he came in. The headache is better now. Denies any dizziness, no blurred vision, somewhat hard of hearing. Denies runny nose, no sore throat, no nausea, no vomiting, no abdominal pain. Normal bowel and bladder movements. Currently, resting comfortably and hemodynamically stable. Labs showed white count of 11.9 and questionable left lower lobe infiltrate in the CAT scan. Influenza is negative. Lipase is somewhat high. CAT scan of the abdomen and pelvis with contrast was unremarkable for any pancreatitis. Admission Exam Per Admitting Provider PHYSICAL EXAMINATION: GENERAL: The patient is of moderate build, not in acute distress. VITAL SIGNS: Temperature 36.9, pulse 89, respiratory rate 16, blood pressure 131/82, oxygen 96% on room air. HEENT: No pallor, no icterus. Pupils equal, round, reactive to light. NECK: No JVD, no neck masses, no carotid bruits. CARDIOVASCULAR: S1, S2 heard, regular rate and rhythm, no murmur, no gallop. RESPIRATORY SYSTEM: Normal AP diameter. No accessory muscle use. No wheezing, no crackles. ABDOMEN: Soft, bowel sounds present, nontender. No distention. CENTRAL NERVOUS SYSTEM: Cranial nerves II through XII grossly intact, nonfocal. EXTREMITIES: No edema, no erythema. Principal Diagnosis Pneumonia atypical chest pain-resolved Anxiety ETOH abuse Smoker Discharge Exam CONSTITUTIONAL: WNWD, vitals as above, generally well-appearing EYES: normal conjunctivae, no scleral icterus ENT: external ear and nose normal, MMM RESPIRATORY: clear to auscultation bilaterally, no crackles, rales or wheezes, normal respiratory effort CARDIOVASCULAR: regular rate and rhythm, S1 and 2 heard without murmurs, gallops or rubs, no JVD, no peripheral edema GASTROINTESTINAL: normal bowel sounds, soft, nontender, no hepatomegaly, no guarding MUSCULOSKELETAL: strength 5/5 throughout, head is normocephalic and atraumatic, neck supple, normal palpation of chest wall without tenderness SKIN: warm and dry, no rashes NEUROLOGIC: CN 2-12 grossly intact, no sensory deficit, normal cognition, normal speech, no gross focal deficits. PSYCHIATRIC: alert cooperative and oriented to person, place and time. Discharge Data Allergies Allergy/AdvReac Type Severity Reaction Status Date / Time Iodinated Contrast Media Allergy Unknown HIVES Verified 07/27/19 19:34 pseudoephedrine Allergy Unknown UNSURE OF Verified 07/27/19 19:34 RX? Sulfa (Sulfonamide Allergy Unknown DOES NOT Verified 07/27/19 19:34 Antibiotics) KNOW RX metoclopramide [From Reglan] AdvReac Severe MUSCLE Verified 07/27/19 19:33 TWITCHING atorvastatin AdvReac Intermediate Muscle Pain Verified 07/27/19 19:33 tramadol AdvReac psyche Verified 07/27/19 19:34 complications Consultations 07/27/19 21:23 ED Decision to Admit Stat 07/28/19 01:29 Consult Case Management - Discharge Planning Routine Ordered Studies 07/27/19 19:56 CT abd pelvis wo con Stat Hospital Course (1) Chest pain: (2) Pneumonia: (3) Elevated lipase: (4) ETOH abuse: (5) Smoker: (6) Anxiety: (7) CAD (coronary artery disease): 84-year-old man presents with chest pain and found to have pneumonia on work-up. Chest x-ray was negative however CAT scan of the abdomen was performed based on an elevated lipase, revealing an incidental infiltrate. The patient has been asymptomatic reporting no cough, fevers, chills and remains that way throughout his hospitalization. He was given Levaquin and Zosyn in the ER and continued on Rocephin and doxycycline. Blood cultures remain negative. His lipase resolved to normal the following day. Notably, the patient is a heavy al cohol user and was placed on gabapentin and PRN Ativan for withdrawal prevention. He did not exhibit any withdrawal symptoms during his hospitalization and heart rate remained low. His chest pain work-up included an EKG revealing a left bundle branch block and first-degree AV block unchanged from prior. Serial cardiac enzymes were negative overnight. He remained on telemetry without any further arrhythmias and no reoccurrence of chest pain or shortness of breath. At the time he was admitted his was also admitted to the ICU and intubated and this was a stressful time for him. Outpatient primary care notes also indicate he has had issues with anxiety recently. He is currently on citalopram and uses Ativan 1 mg 3 times a day to help with this. Retrospectively it is hard to say the chest pain was a result of that or not, however he does not appear to have had ACS. Pneumonia may have contributed to his discomfort. At time of discharge she was hemodynamically stable and afebri le and tolerating p.o. He was mentating and ambulating at baseline and close primary care follow-up is recommended to ensure he is doing well on the medications, has had no recurrence of chest pain, and consider further imaging in 4 to 6 weeks to ensure complete resolution of infiltrate. Total Time Total Time Spent Total Time Spent (In Minutes): 60 Total Time Includes: Examination of the Patient, Discharge Planning, Medication Reconciliation and Communication With Other Providers Discharge Plan Discharge Items Patient Disposition: Home - Self-Care Reason For Visit: PAIN IN LEG Discharge Diagnosis: Pneumonia atypical chest pain-resolved Anxiety ETOH abuse Smoker Condition on Discharge: Good Activity: Resume your previous activity Non-emergency contact: Primary Care Provider Call non-emergency contact if: you have any medication questions, your symptoms worsen and your pain is not controlled Follow-up/Referrals: Silvino Brewer MD [Primary Care Provider] - 08/04/19 8:40 am (Please call [phone] if you need to reschedule this appointment. Please arrive by 8:25 for your appointment.) Diet: Heart Healthy Addtl Attending Provider Instructions: Please take all medications as instructed on discharge list below. It is recommended that you cut back and eventually quit using alcohol and quit smoking as these habits are bad for your health. It is recommended that you follow-up with your primary care physician within one week of discharge from the hospital to ensure you had no return of symptoms, and to help you in your efforts to quit smoking and drinking alcohol. Imaging in 4 weeks may also be considered at this time to ensure complete resolution of pneumonia. It was a pleasure taking care of you! Please call if you have any questions or problems. You can reach a [facility] hospitalist on duty at [facility] 24 hours a day by calling [phone]. Take care of yourself. Na Gao, [facility] Hospitalist Pending Studies at Discharge: Yes Studies:: Blood cultures which are negative at time of discharge. Stand-Alone Forms: My [facility], Smoking Cessation Medications and DC Order Prescriptions: New nicotine [Nicoderm CQ] 21 mg/24 hr Patch 24 Hour 21 mg transdermal QAM Qty: 14 RF: 1 folic acid 1 mg Tablet 1 mg PO QAM Qty: 30 RF: 1 thiamine HCl (vitamin B1) [Vitamin B-1] 100 mg Tablet 100 mg PO QAM Qty: 30 RF: 1 amoxicillin-pot clavulanate [Augmentin] 875-125 mg tablet 1 tab PO BID 5 Days Qty: 10 RF: 0 Continued ropinirole 0.25 mg Tablet 0.25 mg PO HS 30 Days Qty: 30 RF: 3 citalopram 40 mg tablet 40 mg PO DAILY 30 Days Qty: 30 RF: 3 hydrocodone-acetaminophen 5-325 mg tablet 1 tab PO Q8H PRN (Reason: pain) Qty: 20 RF: 0 multivitamin Tablet 1 tab PO DAILY RF: 0 albuterol sulfate 2.5 mg /3 mL (0.083 %) Solution For Nebulization 2.5 mg INHALATION Q4 PRN (Reason: Shortness Of Breath Or Wheezing) RF: 0 triamcinolone acetonide 0.5 % cream 1 applic TOPICAL BID PRN (Reason: AFFECTED AREA ON HANDS) RF: 0 betamethasone, augmented 0.05 % cream 1 applic TOPICAL BID RF: 0 aspirin [Aspir-81] 81 mg Tablet,Delayed Release (Dr/Ec) 81 mg PO DAILY RF: 0 acetaminophen [Tylenol Extra Strength] 500 mg Tablet 1,000 mg PO TID PRN (Reason: Pain) RF: 0 Ex-Lax (sennosides) 15 mg Tablet 15 mg PO HS RF: 0 telmisartan 40 mg tablet 20 mg PO DAILY RF: 0 nitroglycerin 0.4 mg tablet, sublingual 0.4 mg sublingual UD PRN (Reason: Chest Pain) RF: 0 lorazepam [Ativan] 1 mg tablet 1 mg PO TID RF: 0 diclofenac sodium 1 % gel 4 g TOPICAL UD RF: 0 Oihmimeocgt-Vsqvy-GYP Complex 397-652-03-0.5 mg Tablet 1 tab PO UD RF: 0 polyethylene glycol 3350 [Miralax] 17 gram Powder In Packet 17 g PO DAILY PRN (Reason: Constipation) RF: 0 gabapentin 100 mg capsule 100 mg PO TID RF: 0 Discharge Orders: Discharge Order (Routine); Ordered 07/29/19 Ordered By: Na Gao Admission Data Admit Date/Time: 07/27/19 23:45 Attending Provider: Na Gao Admit Provider: Jovan Medina Primary Care Provider: Silvino Brewer Other Providers: Jovan Medina
--- NOTE | 2019-07-29 12:04 | Electrocardiogram Report ---
Test Reason : Blood Pressure : / mmHG Vent. Rate : 050 BPM Atrial Rate : 050 BPM P-R Int : 320 ms QRS Dur : 158 ms QT Int : 514 ms P-R-T Axes : 061 014 061 degrees QTc Int : 468 ms Sinus bradycardia with 1st degree A-V block Left bundle branch block Abnormal ECG When compared with ECG of 28-JUL-2019 15:07, No significant change Confirmed by Micah Bailey ([id number]) on 07/29/2019 12:03:39 PM Referred By: REFERRED SELF Confirmed By:Micah Bailey
[2019-07-30] MEDS ORDERED: GABAPENTIN 600 MG TAB PO SCH (02:00)
[2019-07-31] MEDS ORDERED: GABAPENTIN 600 MG TAB PO SCH (14:00)
[2019-07-31] MEDS ORDERED: GABAPENTIN 100 MG CAP PO SCH (21:00)
== END 2019-07-29 14:01 | disposition home or self-care (01) | DRG 195 ==
LOC: ED 18:48 → SUATTDRO 23:45 → 2W 23:45

== ENCOUNTER 2024-02-14 08:23 | Inpatient (IN) ==
--- NOTE | 2024-02-14 08:55 | Emergency Department Note ---
Impression & Plan AMS (altered mental status), Non-ST elevation CO (NSTEMI), Elevated brain natriuretic peptide (BNP) level ED Provider Note HISTORY OF PRESENT ILLNESS: Patient is a 88-year-old male presenting with altered mental status. Patient lives with daughter. Daughter reported to the patient's son that patient has been progressively more confused over the last 2-3 days. Reports the patient had 2 unwitnessed falls yesterday, one outside in the yard and 1 in the house. Reports that the patient has some underlying dementia, but normally he is able to ambulate without any assistive devices and is able to hold a conversation. Patient denies any pain complaints on arrival to the ER, but he only is oriented to self. Son reports no known fevers. Patient denies any abdominal pain. Unknown if the patient hit his head during his falls. He is on aspirin. ROS: as above PHYSICAL EXAM: Constitutional: Patient appears in no acute distress. HENT: Head: Normocephalic and atraumatic. Eyes: EOMI, PERRL Mouth/Throat: Mucous membranes moist. Neck: Trachea midline. Neck supple. Cardiovascular: RRR, No murmurs, rubs or gallops. Intact distal pulses. Pulmonary/Chest: No respiratory distress. Breath sounds clear and equal bilaterally. No wheezes or rales. Abdominal: Abdomen soft, no tenderness, rebound or guarding. Musculoskeletal: No edema, tenderness or deformity noted. Skin: Warm and dry. No rash, erythema, pallor or cyanosis Neurological: Alert to self only. CN II-XII grossly intact, moving all extremities spontaneously. MDM: - Vitals signs showed hypertension and bradycardia. - History obtained via patient's son, given patient's confusion.. History as above. - Chronic conditions affecting care: CAD; AAA; COPD; HLD; CKD; IBS; GERD; senile dementia - Differential diagnoses include, but are not limited to: UTI; pneumonia; viral syndrome; CVA; intracranial hemorrhage; ACS; electrolyte abnormality - Order placed for continuous cardiac monitoring. At this time, monitor showed rate of 50 bpm with normal sinus rhythm, per my interpretation. - External medical records reviewed. Discharge summary dated 07/29/2019 was reviewed. Patient was admitted at that time for pneumonia and chest pain. - EKG interpreted by myself showed normal sinus rhythm. Rate bradycardic at 53 bpm. QT 452. No acute ischemic changes. Noted to have a left bundle branch block, which has been seen on previous EKGs. - Laboratory workup interpreted by myself showed normal WBC; normal PT/INR; stable electrolytes; elevated total bilirubin (1.5); elevated troponin (23.9); elevated BNP (313); normal procalcitonin; normal lactate - CXR negative for pneumonia, per my interpretation - UA negative for infection - CT head wo contrast negative for acute pathology - Viral respiratory panel negative - Patient was on telemetry while in the emergency department. He was noted to bradycardia down into the 30s and telemetry strip shows sinus bradycardia with a left bundle branch block. He was placed on pacer pads, but his heart rate did return to the mid 40s to 50s. - Unclear etiology for patient's confusion at this time. However, he is not at his baseline per family, will admit to hospitalist service for further evaluation. - Discussion was had with lead case manager about patient's case and need for admission - Hospitalist consulted for admission - Patient admitted to [facility] hospitalist service for further evaluation and management. ASSESSMENT AND PLAN: Diagnosis: Altered mental status; NSTEMI; elevated BNP Plan: Admit Past Med/Surg History Problem List (Updated 02/14/24 @ 11:33 by Teresa Marinelli MD) Elevated brain natriuretic peptide (BNP) level (Acute) Non-ST elevation CO (NSTEMI) (Acute) AMS (altered mental status) (Acute) CKD (chronic kidney disease), stage III CAD (coronary artery disease) Anxiety Smoker ETOH abuse DVT prophylaxis Elevated lipase Chest pain (Acute) Acute pancreatitis (Acute) Pneumonia (Acute) Lumbar spondylosis (Chronic) Intractable low back pain (Chronic) Lumbar stenosis (Chronic) Small bowel obstruction (Acute) Gastritis (Acute) GI bleed (Acute) Abdominal pain (Acute) Epigastric abdominal pain (Acute) Medical History (Updated 02/14/24 @ 11:33 by Teresa Marinelli MD) Spinal stenosis Arthritis AAA (abdominal aortic aneurysm) Surgical History (Updated 06/05/19 @ 00:03 by Rosio Montenegro) History of abdominal aortic aneurysm (AAA) repair Family History Other Family history non-contributory Social History Smoking Status: Unknown if ever smoked Cigarettes Per Day: 5-6; Hx Alcohol Use: Yes Alcohol type: beer and hard liquor Hx Substance Use: No Preferred Language: Upper Sorbian Communication Ability: Impaired Utilization Management Nurse Required: No Beliefs That Will Affect Care: None marital status: Current Living Situation: Spouse How many Children do You have: 2 Feels Safe at Home: Yes Assistive Devices: None Allergies Allergies Allergy/AdvReac Type Severity Reaction Status Date / Time Iodinated Contrast Media Allergy Unknown HIVES Verified 07/27/19 19:34 pseudoephedrine Allergy Unknown UNSURE OF Verified 07/27/19 19:34 RX? Sulfa (Sulfonamide Allergy Unknown DOES NOT Verified 07/27/19 19:34 Antibiotics) KNOW RX metoclopramide [From Reglan] AdvReac Severe MUSCLE Verified 07/27/19 19:33 TWITCHING atorvastatin AdvReac Intermediate Muscle Pain Verified 07/27/19 19:33 tramadol AdvReac psyche Verified 07/27/19 19:34 complications Home Meds Home Medications Medication Instructions Recorded Confirmed acetaminophen 500 mg tablet 1,000 mg PO TID PRN Pain 05/20/19 07/27/19 (Tylenol Extra Strength) albuterol sulfate 2.5 mg/3 mL 2.5 mg inhalation Q4 PRN Shortness 05/20/19 07/27/19 (0.083 %) solution for nebulization Of Breath Or Wheezing aspirin 81 mg tablet,delayed 81 mg PO DAILY 05/20/19 07/27/19 release (Aspir-) betamethasone, augmented 0.05 % 1 applic topical BID 05/20/19 07/27/19 topical cream diclofenac sodium 1 % topical gel 4 g topical UD 05/20/19 07/27/19 glucosamine 375 bv-wviwmnyzi-kfv 1 tab PO UD 05/20/19 07/27/19 no1 500 mg-C 15 mg-lamar 0.5 mg tablet (Vhhqqqrhdcf-Tcncomvdzod-CHY Complex) lorazepam 1 mg tablet (Ativan) 1 mg PO UD 05/20/19 07/27/19 multivitamin 1 tab PO DAILY 05/20/19 07/27/19 nitroglycerin 0.4 mg sublingual 0.4 mg sublingual UD PRN Chest Pain 05/20/19 07/27/19 tablet sennosides 15 mg tablet (Ex-Lax 15 mg PO HS 05/20/19 07/27/19 (sennosides)) telmisartan 40 mg tablet 20 mg PO DAILY 05/20/19 07/27/19 triamcinolone acetonide 0.5 % 1 applic topical BID PRN AFFECTED 05/20/19 07/27/19 topical cream AREA ON HANDS gabapentin 100 mg capsule 100 mg PO TID 07/27/19 07/27/19 polyethylene glycol 3350 17 gram 17 g PO DAILY PRN Constipation 07/27/19 07/27/19 oral powder packet (Miralax) buspirone 10 mg tablet 10 mg PO BID PRN Agitation 02/14/24 montelukast 10 mg tablet 10 mg PO DAILY 02/14/24 Previous Rx's Medication Instructions Recorded citalopram 40 mg tablet 40 mg PO DAILY 30 days #30 tabs 05/30/19 hydrocodone 5 mg-acetaminophen 325 1 tab PO Q8H PRN pain #20 tabs 05/30/19 mg tablet ropinirole 0.25 mg tablet 0.25 mg PO HS 30 days #30 tabs 05/30/19 folic acid 1 mg tablet 1 mg PO QAM #30 tabs 07/29/19 nicotine 21 mg/24 hr daily 21 mg transdermal QAM #14 ea 07/29/19 transdermal patch (Nicoderm CQ) thiamine HCl (vitamin B1) 100 mg 100 mg PO QAM #30 tabs 07/29/19 tablet (Vitamin B-1) Results & Data (ED) Vital Signs Vital Signs - 24 hr 02/14/24 08:08 02/14/24 08:39 02/14/24 08:56 Temperature 36.2 C L Temperature Source Axillary Pulse Rate 54 L 54 L 54 L Pulse Rate [Apical] Respiratory Rate 16 16 Respiratory Effort / Characteristics Respiratory Depth Blood Pressure 142/73 H Blood Pressure [Right Arm] Blood Pressure Mean 96 Blood Pressure Mean [Right Arm] Pulse Oximetry 94 94 Oxygen Delivery Method Room Air Room Air Sepsis Recent Fever Within 48 Hours No Sepsis New/Unexplained Change in Mental Status N/A Sepsis Action Taken by Nursing No Action Required 02/14/24 09:18 02/14/24 11:03 Temperature Temperature Source Pulse Rate 34 L Pulse Rate [Apical] 43 L Respiratory Rate 18 Respiratory Effort / Characteristics Non-Labored Spontaneous Respiratory Depth Normal Blood Pressure Blood Pressure [Right Arm] 157/58 H Blood Pressure Mean Blood Pressure Mean [Right Arm] 91 Pulse Oximetry 98 Oxygen Delivery Method Room Air Sepsis Recent Fever Within 48 Hours Sepsis New/Unexplained Change in Mental Status Sepsis Action Taken by Nursing Laboratory Data 02/14/24 08:45 02/14/24 08:45 Lab Results 02/14/24 02/14/24 02/14/24 Range/Units 08:29 08:40 08:45 WBC 9.43 (4.8-10.8) K/ul RBC 4.40 L (4.70-6.10) M/uL Hgb 13.0 L (14.0-18.0) g/dl Hct 39.9 L (42.0-52.0) % MCV 90.7 (80.0-100.0) fL MCH 29.5 (25.0-34.0) pg MCHC 32.6 (32.0-36.0) g/dL RDW Std Deviation 44.4 (36.4-46.3) fL RDW Coeff of Mick 13.2 (11.5-14.5) % Plt Count 241 (130-400) K/uL MPV 9.5 (9.4-12.4) fL Immature Gran % (Auto) 0.3 % Neut % (Auto) 77.6 % Lymph % (Auto) 10.8 % Forrest % (Auto) 9.9 % Eos % (Auto) 0.8 % Baso % (Auto) 0.6 % Neut # (Auto) 7.31 H (1.40-6.50) K/uL Lymph # (Auto) 1.02 L (1.20-3.40) K/uL Forrest # (Auto) 0.93 H (0.11-0.59) K/uL Eos # (Auto) 0.08 (0.00-0.50) K/uL Baso # (Auto) 0.06 (0.00-0.20) K/uL Immature Gran # (Auto) 0.03 (0.01-0.20) K/uL PT 10.8 (9.0-12.0) Seconds INR 1.0 (0.9-1.1) APTT 25 (21-31) Seconds PTT Ratio 0.9 Sodium 134 L (136-145) mmol/L Potassium 4.2 (3.5-5.1) mmol/L Chloride 103 (98-107) mmol/L Carbon Dioxide 26 (21-32) mmol/L Anion Gap 5 (3-11) BUN 14 (6-23) mg/dl Creatinine 1.37 (0.6-1.4) mg/dl Est Cr Clr Drug Dosing 37.7 ml/min Est GFR ( Amer) 52.6 ml/min Est GFR (Non-Af Amer) 45.4 ml/min BUN/Creatinine Ratio 10.2 (10-20) Glucose 106 H (70-99(Fasting)) mg/dl POC Glucose 124 H (70-99) mg/dl Lactate 1.1 (0.4-2.0) mmol/L Calcium 8.9 (8.6-10.3) mg/dl Magnesium 2.0 (1.7-2.4) mg/dl Total Bilirubin 1.5 H (0.2-1.0) mg/dl AST 13 (13-39) U/L ALT 6 L (7-52) U/L Alkaline Phosphatase 46 (34-104) U/L Troponin I High Sens 23.9 H (0-20) pg/ml B-Natriuretic Peptide 313 H (0-100) pg/ml Total Protein 6.3 (6.0-8.3) gm/dl Albumin 3.6 (3.4-5.0) gm/dl Globulin 2.7 (2.5-4.0) gm/dl Albumin/Globulin Ratio 1.3 (0.9-2) Procalcitonin < 0.02 (0-0.5) ng/ml Urine Color Yellow Urine Appearance Clear (Clear) Urine pH 6.0 (4.5-7.5) Ur Specific [place] 1.022 (1.000-1.030) Urine Protein 1+ H (Negative) Urine Glucose (UA) Negative (Negative) Urine Ketones Trace H (Negative) Urine Blood 2+ H (Negative) Urine Nitrite Negative (Negative) Urine Bilirubin Negative (Negative) Urine Urobilinogen Negative (Negative) Ur Leukocyte Esterase Negative (Negative) Urine WBC (Auto) 0-5 (0-5) /hpf Urine RBC (Auto) >20 H (0-2) /hpf U Hyaline Cast (Auto) 0-2 (0-2) /lpf U Epithel Cells (Auto) 0-2 (0-2) /hpf Urine Bacteria (Auto) None Seen (None Seen) Adenovirus (PCR) (NotDetected) B. pertussis DNA (PCR) (NotDetected) B.parapertussis DNA PCR (NotDetected) C. pneumoniae DNA (PCR) (NotDetected) Coronavirus OC43 (PCR) (NotDetected) Coronavirus HKU1 (PCR) (NotDetected) Coronavirus 229E (PCR) (NotDetected) SARS-CoV-2 (PCR) (NotDetected) Coronavirus NL63 (PCR) (NotDetected) Human Metapneumovir PCR (NotDetected) Influenza Type A (PCR) (NotDetected) Influenza Type B (PCR) (NotDetected) M. pneumoniae (PCR) (NotDetected) Parainfluenza 1 (PCR) (NotDetected) Parainfluenza 2 (PCR) (NotDetected) Parainfluenza 3 (PCR) (NotDetected) Parainfluenza 4 (PCR) (NotDetected) RSV (PCR) (NotDetected) Entero/Rhino (PCR) (NotDetected) 02/14/24 Range/Units 08:59 WBC (4.8-10.8) K/ul RBC (4.70-6.10) M/uL Hgb (14.0-18.0) g/dl Hct (42.0-52.0) % MCV (80.0-100.0) fL MCH (25.0-34.0) pg MCHC (32.0-36.0) g/dL RDW Std Deviation (36.4-46.3) fL RDW Coeff of Mick (11.5-14.5) % Plt Count (130-400) K/uL MPV (9.4-12.4) fL Immature Gran % (Auto) % Neut % (Auto) % Lymph % (Auto) % Forrest % (Auto) % Eos % (Auto) % Baso % (Auto) % Neut # (Auto) (1.40-6.50) K/uL Lymph # (Auto) (1.20-3.40) K/uL Forrest # (Auto) (0.11-0.59) K/uL Eos # (Auto) (0.00-0.50) K/uL Baso # (Auto) (0.00-0.20) K/uL Immature Gran # (Auto) (0.01-0.20) K/uL PT (9.0-12.0) Seconds INR (0.9-1.1) APTT (21-31) Seconds PTT Ratio Sodium (136-145) mmol/L Potassium (3.5-5.1) mmol/L Chloride (98-107) mmol/L Carbon Dioxide (21-32) mmol/L Anion Gap (3-11) BUN (6-23) mg/dl Creatinine (0.6-1.4) mg/dl Est Cr Clr Drug Dosing ml/min Est GFR ( Amer) ml/min Est GFR (Non-Af Amer) ml/min BUN/Creatinine Ratio (10-20) Glucose (70-99(Fasting)) mg/dl POC Glucose (70-99) mg/dl Lactate (0.4-2.0) mmol/L Calcium (8.6-10.3) mg/dl Magnesium (1.7-2.4) mg/dl Total Bilirubin (0.2-1.0) mg/dl AST (13-39) U/L ALT (7-52) U/L Alkaline Phosphatase (34-104) U/L Troponin I High Sens (0-20) pg/ml B-Natriuretic Peptide (0-100) pg/ml Total Protein (6.0-8.3) gm/dl Albumin (3.4-5.0) gm/dl Globulin (2.5-4.0) gm/dl Albumin/Globulin Ratio (0.9-2) Procalcitonin (0-0.5) ng/ml Urine Color Urine Appearance (Clear) Urine pH (4.5-7.5) Ur Specific [place] (1.000-1.030) Urine Protein (Negative) Urine Glucose (UA) (Negative) Urine Ketones (Negative) Urine Blood (Negative) Urine Nitrite (Negative) Urine Bilirubin (Negative) Urine Urobilinogen (Negative) Ur Leukocyte Esterase (Negative) Urine WBC (Auto) (0-5) /hpf Urine RBC (Auto) (0-2) /hpf U Hyaline Cast (Auto) (0-2) /lpf U Epithel Cells (Auto) (0-2) /hpf Urine Bacteria (Auto) (None Seen) Adenovirus (PCR) Not Detected (NotDetected) B. pertussis DNA (PCR) Not Detected (NotDetected) B.parapertussis DNA PCR Not Detected (NotDetected) C. pneumoniae DNA (PCR) Not Detected (NotDetected) Coronavirus OC43 (PCR) Not Detected (NotDetected) Coronavirus HKU1 (PCR) Not Detected (NotDetected) Coronavirus 229E (PCR) Not Detected (NotDetected) SARS-CoV-2 (PCR) Not Detected (NotDetected) Coronavirus NL63 (PCR) Not Detected (NotDetected) Human Metapneumovir PCR Not Detected (NotDetected) Influenza Type A (PCR) Not Detected (NotDetected) Influenza Type B (PCR) Not Detected (NotDetected) M. pneumoniae (PCR) Not Detected (NotDetected) Parainfluenza 1 (PCR) Not Detected (NotDetected) Parainfluenza 2 (PCR) Not Detected (NotDetected) Parainfluenza 3 (PCR) Not Detected (NotDetected) Parainfluenza 4 (PCR) Not Detected (NotDetected) RSV (PCR) Not Detected (NotDetected) Entero/Rhino (PCR) Not Detected (NotDetected) Imaging Data Radiologist's Impression: Chest X-Ray 02/14/24 08:51 XR chest 1V portable CLINICAL HISTORY: altered mental status TECHNIQUE: Single frontal radiograph of the chest was obtained. Comparison: Comparison is made to chest radiograph 12/27/2019 FINDINGS: No lines and tubes are seen. There is prominence of the right mediastinum. Aortic calcification is seen. The lungs are clear. No evidence of pleural effusion or pneumothorax. Incidental note is made of a skin fold on the left. IMPRESSION: Prominence of the right mediastinum is nonspecific, may be secondary to patient rotation however lymphadenopathy or severe pulmonary hypertension may appear similarly. If there is clinical concern CT chest can be performed. ACT 112: Negative or not required by law. Electronically signed by: Denilson Dawson M.D. 02/14/2024 9:[address] 02/14/24 08:51 CT head/brain wo con CLINICAL HISTORY: 88 years-old Male with confusion; fall from standing. Acutely altered mental status. Acute head trauma status post fall TECHNIQUE: Multiple axial CT images of the head were obtained without contrast. A dose lowering technique was utilized adhering to the principles of ALARA. CT DOSE: 1016.05 mGy.cm COMPARISON: None. FINDINGS: No acute intracranial hemorrhage, midline shift, intracranial mass, hydrocephalus, territorial ischemia or abnormal extra-axial collection. Involutional changes with chronic microvascular ischemic disease. The study is motion degraded and also limited secondary to positioning. Ex vacuo ventriculomegaly. The calvarium is intact. The paranasal sinuses, mastoid air cells, and middle ear cavities are clear. IMPRESSION: 1. Motion degraded exam without acute intracranial abnormality identified. 2. Involutional changes with chronic microvascular ischemic disease. ACT 112: Negative or not required by law. The above report was generated using voice recognition software. It may contain grammatical, syntax or spelling errors. Electronically signed by: Larry Gan M.D. 02/14/2024 9:24 AM Discharge Plan Visit Data Chief Complaint: Altered Mental Status ED Provider: Teresa Marinelli Discharge Problem: AMS (altered mental status), Non-ST elevation CO (NSTEMI), Elevated brain natriuretic peptide (BNP) level Forms Stand Alone Forms: [facility] Prescriptions Prescriptions: No Action ropinirole 0.25 mg Tablet 0.25 mg PO HS 30 Days Qty: 30 3RF citalopram 40 mg tablet 40 mg PO DAILY 30 Days Qty: 30 3RF hydrocodone-acetaminophen 5-325 mg tablet 1 tab PO Q8H PRN (Reason: pain) Qty: 20 0RF multivitamin Tablet 1 tab PO DAILY albuterol sulfate 2.5 mg /3 mL (0.083 %) Solution For Nebulization 2.5 mg INHALATION Q4 PRN (Reason: Shortness Of Breath Or Wheezing) triamcinolone acetonide 0.5 % cream 1 applic TOPICAL BID PRN (Reason: AFFECTED AREA ON HANDS) betamethasone, augmented 0.05 % cream 1 applic TOPICAL BID aspirin [Aspir-81] 81 mg Tablet,Delayed Release (Dr/Ec) 81 mg PO DAILY acetaminophen [Tylenol Extra Strength] 500 mg Tablet 1,000 mg PO TID PRN (Reason: Pain) Ex-Lax (sennosides) 15 mg Tablet 15 mg PO HS telmisartan 40 mg tablet 20 mg PO DAILY nitroglycerin 0.4 mg tablet, sublingual 0.4 mg sublingual UD PRN (Reason: Chest Pain) lorazepam [Ativan] 1 mg tablet 1 mg PO UD Rx Instructions: original: 1 mg po tid 1 tab am, 1 1/2 tab at lunch, 1 tab pm diclofenac sodium 1 % gel 4 g TOPICAL UD Clawdrtihcv-Dpphp-JUM Complex 250-693-75-0.5 mg Tablet 1 tab PO UD polyethylene glycol 3350 [Miralax] 17 gram Powder In Packet 17 g PO DAILY PRN (Reason: Constipation) gabapentin 100 mg capsule 100 mg PO TID nicotine [Nicoderm CQ] 21 mg/24 hr Patch 24 Hour 21 mg transdermal QAM Qty: 14 1RF folic acid 1 mg Tablet 1 mg PO QAM Qty: 30 1RF thiamine HCl (vitamin B1) [Vitamin B-1] 100 mg Tablet 100 mg PO QAM Qty: 30 1RF buspirone 10 mg tablet 10 mg PO BID PRN (Reason: Agitation) montelukast 10 mg tablet 10 mg PO DAILY Referrals Referrals: Silvino Brewer MD [Primary Care Provider] -
[2024-02-14 09:06] LABS: Basophils # (auto) 0.06 K/uL (0.00-0.20); Basophils % (auto) 0.6 %; Eosinophils # (auto) 0.08 K/uL (0.00-0.50); Eosinophils % (auto) 0.8 %; Hematocrit (blood only) 39.9 % (42.0-52.0); Immature Granulocytes # (auto) 0.03 K/uL (0.01-0.20); Immature Granulocytes % (auto) 0.3 %; Lymphocytes # (auto) 1.02 K/uL (1.20-3.40); Lymphocytes % (auto) 10.8 %; Mean Corpuscular Hemoglobin 29.5 pg (25.0-34.0); Mean Corpuscular Hgb Conc 32.6 g/dL (32.0-36.0); Mean Corpuscular Volume 90.7 fL (80.0-100.0); Mean Platelet Volume 9.5 fL (9.4-12.4); Monocytes # (auto) 0.93 K/uL (0.11-0.59); Monocytes % (auto) 9.9 %; Neutrophils # (auto) 7.31 K/uL (1.40-6.50); Neutrophils % (auto) 77.6 %; Platelet Count 241 K/uL (130-400); RDW Coefficient of Variation 13.2 % (11.5-14.5); RDW Standard Deviation 44.4 fL (36.4-46.3); White Blood Count 9.43 K/ul (4.8-10.8)
--- OUTSIDE RECORDS SUMMARY | 2024-02-14 09:14 | External Medical Summary | Summary of Care ---
Author Name Unknown Organization [facility] Address [address] [place] [address] Phone [phone] Care Team Providers Care Suture Polisher Name Role Phone Silvino Kingsley MD Primary Care Provider [phone]- [phone] Reason for Referral * Medication Prior Authorization - Closed Specialty Diagnoses / Procedures Referred By Juju garrett Referred To Contact Diagnoses Anxiety state Silvino Kingsley MD [address] [place] [address] Referral ID Status Reason Start Date Expiration Date Visits Re quested Visits Authorized [id number] Closed 999 999 * Medication Prior Authorization - Closed Specialty Diagnoses / Procedures Referred By Juju garrett Referred To Contact Diagnoses Spinal stenosis of lumbar region with neurogenic claudication Silvino Kingsley MD [address] [place] [address] Referral ID Status Reason Start Date Expiration Date Visits Re quested Visits Authorized [id number] Closed 999 999 Reason for Visit * Reason Onset Date Comments Medication Refill 11/12/2023 Encounter Details Date Type Department Care Team (Late st Contact Info) Description 11/12/2023 Refill [facility] [address] [place] [facility] [place] [id number] Silvino Kingsley MD [address] [place] [address] Spinal stenosis of lumbar region with neurogenic claudication; Anxiety state Allergies Active Allergy Reactions Criticality Noted Date Comments Atorvastatin Muscle pain Medium 07/06/2019 Ivp Dye 04/22/1999 hives Pseudoephedrine 06/30/1999 hives Metoclopramide Hcl Neuro complications (Please comment) High 01/28/2009 Muscle twitching Sulfa Antibiotics 04/22/1999 rash,sob Tramadol Psych complications 07/14/2013 documented as of this encounter (statuses as of 11/12/2023) Medications Medication Sig Dispensed Refills Start Date End Date Status ASPIRIN EC 81 MG PO TBECIndications:ASC VD (arteriosclerotic cardiovascular disease) 1 tablet by mouth once a day 0 04/18/2012 Active hydrocortisone 1%-clotrimazole 1% 1:1 creamIndications:De rmatitis Apply topically to affected area 2 times a day. Aviva-rectal area 56 g 3 09/27/2017 Active nitroglycerin (NITROSTAT) 0.4 MG SUBLIndications:ASC VD (arteriosclerotic cardiovascular disease) one tab under tongue as needed for chest pain maximum 3 doses 30 Tab 5 08/18/2018 Active triamcinolone acetonide (ARISTOCORT) 0.1 % creamIndications:De rmatitis Apply topically to affected area 2 times a day. To affected area. 80 g 5 07/20/2019 Active Additional Information Patient not taking.Reported on 10/22/2023 Gabapentin 100 MG Oral Capsule (Neurontin)Indicati ons:Restless legs syndrome,Sleep disturbance TAKE 1 CAPSULE BY MOUTH 3 TIMES A DAY. MAY TAKE EXTRA CAP UP TO AN ADDITIONAL 2 TIMES A DAY NEEDED FOR HEADACHE AND NECK PAIN 300 Capsule 3 05/27/2022 Active Citalopram Hydrobromide 40 MG Oral Tablet (CeleXA)Indications :Anxiety state TAKE 1 TABLET BY MOUTH EVERY DAY 90 Tablet 2 12/31/2022 Active Montelukast Sodium 10 MG Oral Tablet (Singulair) TAKE 1 TABLET BY MOUTH EVERY DAY 90 Tablet 2 02/04/2023 Active busPIRone HCl 10 MG Oral Tablet (Buspar)Indications :Agitation Take 1 Tablet by mouth in the morning and 1 Tablet before bedtime. Take for agitation as needed. 20 Tablet 10/22/2023 Active HYDROcodone-Acetami nophen 5-325 MG Oral TabletIndications: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 60 Tablet 11/12/2023 Active LORazepam 1 MG Oral Tablet (Ativan)Indications :Anxiety state TAKE 1 TAB IN AM, 1 AND 1/2 TABS AT LUNCH AND 1 TAB AT DINNER 105 Tablet 11/12/2023 Active HYDROcodone-Acetami nophen 5-325 MG Oral TabletIndications: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 60 Tablet 09/20/2023 11/12/19 24 Discontinu ed(Refill) LORazepam 1 MG Oral Tablet (Ativan)Indications :Anxiety state TAKE 1 TAB IN AM, 1 AND 1/2 TABS AT LUNCH AND 1 TAB AT DINNER 105 Tablet 09/20/2023 11/12/19 24 Discontinu ed(Refill) Hospital, Clinic, or Other Facility Administered Medication Ordered Dose Route Frequency Start Date End Date Status albuterol sulfate (PROVENTIL) (2.5 MG/3ML) 0.083% inhalation solution 2.5 mgIndications:COPD, moderate (HCC) 2.5 mg NEBULIZER Q4H PRN 04/16/2017 Active documented as of this encounter (statuses as of 11/12/2023) Active Problems Problem Noted Date Diagnosed Date COPD, group B, by GOLD 2017 classification 11/24 Overview: Per COPD GOLD Classification Chronic kidney disease, stage 3b 09/24/2020 Overview: Per CKD protocol 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 03/25/2020 Overview: Per CKD protocol Anxiety state 2019 Hyperlipidemia, unspecified 2019 Restless legs syndrome 2019 Gastroesophageal reflux disease 09/27/2017 Senile dementia, uncomplicated 12/12/2015 Primary osteoarthritis involving multiple joints 2015 Eczema, dyshidrotic 01/02/2014 Gastroparesis 04/24/2013 Sleep disturbance 10/17/2012 Major depressive disorder, single episode, moder ate 04/18/2012 IBS (irritable bowel syndrome) 04/18/2012 Tobacco use disorder 04/18/2012 ASCVD (arteriosclerotic cardiovascular disease) 10/22/2011 Pleural plaque with presence of asbestos 012 AAA (abdominal aortic aneurysm) Overview: Modified per AAA Repaired Protocol #13. 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 04/06/2018 03/28/2020 Overview: Per CKD protocol Encounter for long-term (cur rent) use of medications 03/25/2017 08/15/2018 Bilateral impacted cerumen 12/28/2016 1 05/25/2016 Viral gastroenteritis 06/05/20152015 Diarrhea 2015 12/12/2015 Gastroesophageal reflux dise ase with esophagitis 03/11/2015 09/27/2017 Alcohol ingestion, 1-4 drinks per day 11/02/2014 08/18/2018 Inflammation of toenail 08/27/201411/15 Cervicalgia 07/17/2014 08/15/2018 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 07/17/2014 03/25/2017 DDD (degenerative disc disease), cervical 07/17/2014 03/25/2017 Partial small bowel obstruction 06/04/2014 09/09/2016 GI bleed 06/04/2014 12/12/2015 Obesity, Class I, BMI 30.0-3 4.9 (see actual BMI) 01/02/2014 09/09/2016 Overview: BMI= 30.94 01/02/14 Osteoarthritis of hip 07/14/20132015 Overview: ICD-10 update of inactive term DJD (degenerative joint disease) of knee 07/14/2013 12/12/2015 Obesity, Class I, BMI 30.0-3 4.9 (see actual BMI) 04/24/2013 09/09/2016 Overview: bmi= 30.56 04/24/13 History of AAA (abdominal ao rtic aneurysm) repair 04/24/2013 09/09/2016 Foot pain, right 12/05/2012 01/31/2015 DJD (degenerative joint disease) of knee 10/17/2012 12/12/2015 Leg hematoma 06/30/2012 01/31/2015 Sprain, lumbosacral 06/30/2012 02/01/20 15 Fracture of rib of left side 06/30/2012 01/31/2015 Need for shingles vaccine 06/30/2012 Anxiety state 06/30/2012 04/06/2018 PVD (peripheral vascular disease) 04/18/2012 01/31/2015 Anxiety state 04/18/2012 06/30/2012 Backache 11/12/2011 09/09/2016 DDD (degenerative disc disease), lumbar 11/12/2011 12/12/2015 Dysphagia 11/12/2011 01/31/2015 Slow transit constipation 11/02/2011 POLST (Physician Orders for Life-Sustaining Treatment) 10/15/2011 01/31/2015 Overview: form given History of tobacco use 10/15/201104/24 Overview: quit 08/26 DJD (degenerative joint disease) 10/15/2011 01/31/2015 Kidney disease, chronic, sta ge III (GFR 30-59 ml/min) 10/05/2011 03/28/2020 Overview: Per CKD protocol Hypertensive heart disease 10/05/201106/25/2018 Overview: duplicate HTN, goal below 130/80 10/05/201110/23 COPD, moderate 09/02/2011 11/27/2021 Overview: Per COPD GOLD Classification Centrilobular emphysema 09/02/201103/17 Irritable bowel syndrome (IBS) 05/21/2011 04/24/2013 Obstipation 05/21/2011 01/31/2015 Abdominal pain, left lower quadrant 05/21/2011 01/31/2015 Abnormal chest x-ray 04/21/2011 016 OVERWEIGHT, BMI= 28.48 04/14/11 04/14/2011 01/31/2015 FINGER INJURY, LEFT RING 04/14/2011 OVERWEIGHT, BMI= 28.34 10/07/10 10/07/2010 09/09/2016 Rosacea 10/07/2010 11/02/2014 OVERWEIGHT, BMI= 28.36 04/08/10 04/08/2010 09/09/2016 Screening for prostate cancer 04/08/2010 12/12/2015 Dysfunction of eustachian tube 11/05/2009 04/24/2013 Otalgia 09/19/2009 04/24/2013 DJD, BILATERAL HIPS 09/19/2009 11/03/19 15 DJD, RIGHT KNEE 09/19/2009 11/02/2014 Chronic rhinitis 09/19/2009 11/02/2014 Hearing loss 08/20/2009 11/02/2014 HTN, goal below 130/80 06/12/200910/04 Overview: Per HTN Taxonomy. Dyslipidemia, goal LDL below 100 05/01/2009 11/05/2009 Overview: Per Lipid Taxonomy. Hypertensive heart disease 03/14/2009 0 10/05/2011 Overview: Per Heart Failure Taxonomy Protocol. UN[facility] BEHAV MITCHELL SKIN, FOREHEAD 03/06/2009 11/02/2014 Other seborrheic keratosis 03/06/2009 0 11/02/2014 Pain in limb 03/06/2009 11/02/2014 Need for influenza vaccination 01/23/2009 11/02/2014 S/P abdominal aortic aneurysm repair 12/26/2008 11/02/2014 Overview: Modified per AAA Repaired Protocol #13. HTN, goal below 140/90 12/21/200806/12 Overview: Per HTN Taxonomy. Screening for prostate cancer 12/21/2008 02/07/2009 Overview: Modified by Screening Dx Protocol #6. Gastroparesis 12/03/2008 04/24/2013 Unspecified viral infection, in conditions classified elsewhere and of unspecified site 05/15/2008 11/02/2014 Hemorrhage of rectum and anus 02/15/2008 11/02/2014 Esophageal reflux 02/15/2008 11/02/2014 Need for prophylactic vaccin ation and inoculation against other viral diseases(V04.89) 02/15/2008 11/02/2014 OVERWEIGHT, BMI= 27.69 02/15/08 02/15/2008 11/02/2014 History of tobacco use 12/29/200602/14 FACET ARTHROPATHY, LUMBAR 11/22/2006 Spasm of muscle 11/22/2006 02/15/2008 IMPACTED CERUMEN, RIGHT 11/22/200610/15 Kidney disease, chronic, sta ge III (GFR 30-59 ml/min) 12/09/2005 10/05/2011 Dermatophytosis of groin 07/16/2005 Dermatitis 07/16/2005 12/09/2005 RECTAL & ANAL DIS NEC 07/16/20052005 Nausea 07/02/2005 12/09/2005 Overview: ICD-10 update of inactive term SLOW TRANSIT CONSTIPATION/OBSTIPATION 07/02/2005 11/02/2014 S/P SURGERY FOR INT HEMRRHOID W COMP NEC 07/02/2005 11/02/2014 ABN FD-INTRATHOR ORG NEC 05/19/2005 PVD (PERIPHERAL VASCULAR DIS EASE) PERIPH VASC DISEASE,UNSP 03/16/2005 04/18/2012 ADVANCE DIRECTIVE INFORMATION 11/26/2004 11/02/2014 Overview: No, Advance Directive brochure given to patient at prior appointment. ACUTE CYSTITIS 10/27/2004 12/09/2005 ADVANCE DIRECTIVE INFORMATION 10/21/2004 12/09/2005 Overview: No, Advance Directive brochure given to patient at prior appointment. CONTUSION ABDOMINAL WALL 08/25/2004 Contusion of foot 08/25/2004 12/09/2005 Back contusion 08/25/2004 12/09/2005 CONTUSION OF CHEST WALL, LEFT 03/28/2004 12/09/2005 HELICOBACTER PYLORI (H. PYLORI) INFECTION 10/01/2003 11/02/2014 Precordial pain 07/03/2003 10/01/2003 Benign prostatic hyperplasia 01/31/2003 12/09/2005 Overview: ICD-10 update of inactive term ICD-10 update of inactive term Dyslipidemia, goal to be determined 01/31/2003 05/01/2009 Overview: Per Lipid Taxonomy. CHALAZION, LEFT 01/31/2003 10/01/2003 Urinary sys symptom NEC 01/31/200309/14 ABN LIVER FUNCTION STUDY 01/31/2003 ROUTINE MEDICAL EXAM 01/31/2003 015 Screening for prostate cancer 01/31/2003 07/25/2008 Overview: Resolved per Screening Diagnosis Protocol #6 SCREEN MAL NEOP-RECTUM 01/31/200312/09 COPD with emphysema 05/29/2002 08/31/19 12 Lung field abnormal 05/11/2002 10/01/19 04 Chest pain 04/04/2002 10/01/2003 Impacted cerumen 04/04/2002 10/01/2003 SPRAIN OF ANKLE, LEFT 04/04/20022003 INFEC OTITIS EXTERNA, LEFT 01/25/2002 0 10/01/2003 Otalgia 01/25/2002 10/01/2003 Contusion of chest wall 12/21/200109/14 Painful respiration 12/21/2001 10/01/19 04 Ventral hernia, unspecified, without mention of obstruction or gangrene 06/17/2000 11/02/2014 ALCOH DEP [id number] 06/17/2000 POST-NASAL DRIP 12/22/1999 11/02/2014 CERVICAL DJD/DDD 07/30/1999 11/02/2014 Ventilation pneumonitis 07/30/199909/14 Esophageal reflux 07/30/1999 10/01/2003 LUMBAR DJD 07/30/1999 11/02/2014 SENSORNEUR HEAR LOSS NOS 06/18/1999 Major depressive disorder 05/14/1999 Overview: ICD-10 update of inactive term OSTEOARTHROS NOS-UNSPEC 09/14 Diaphragmatic hernia 015 ASCVD 10/22/2011 Tobacco use disorder 012 HYPERLIPIDEMIA NEC-NOS 04/26 Anxiety state 04/18/2012 CURTIS HYPERTEN HRT DIS NOS Overview: Per Heart Failure Taxonomy Protocol. Dyslipidemia, goal LDL below 70 04/14/2011 Pulmonary nodule, right 11/15 Dyslipidemia, goal LDL below 100 12/12/2015 documented as of this encounter (statuses as of 11/12/2023) Immunizations Name Administration Dates Next Due Pneumococcal Conjugate Vacc, 13 Valent (Prevnar) 05/23/2015 Pneumococcal Polysaccharide PPV23 (Pneumovax) 03/22/2007 Season Influenza, Quad, PF, Adjuvanted, 65+ Yrs, IM (FLUAD) 01/25/2020 Seasonal Influenza, PF, 6 M & above, IM , (FluLaval or Fluzone) 04/06/2018,03/25/2017 Seasonal Influenza, Quadriva lent, No Preserve, IM 02/19/2016 Seasonal Influenza, Split, I IV3, With Preserve, Inj 01/31/2015,03/14/2014,02/27/2013,01/26,02/06/2011,04/08/2010,01/23/2009 ,03/14/2008,03/22/2007,03/31/2006 TD, Preservative Free 07/06/2019 Varicella Zoster Vaccine (Adult) 04/14/2014 documented as of this encounter Social History Tobacco Use Types Packs/Day Years Used Date Smoking Tobacco: Some Days Cigarettes 0.5 60 Smokeless Tobacco: Never Alcohol Use Standard Drinks/Week Comments Yes 0 (1 standard drink = 0.6 oz pur e alcohol) 2-3 beers/day PHQ-2 Answer Date Recorded PHQ Adult Total Score 0 10/27/2021 Hunger Vital Sign Answer Date Recorded Within the past 12 months, y ou worried that your food would run out before you got the money to buy more. Never true 10/28/19 22 Within the past 12 months, t he food you bought just didn't last and you didn't have money to get more. Never true 10/27/2021 Utilities Answer Date Recorded Do you have trouble paying y our heating, water, or electric bill? (Adult - for ages 18 years and over) Not on file 11/02/2023 Is your family able to pay t he heat, water, or electric bill? (Household - for ages 0-17 years) Not on file 11/02/2023 Does your family have access to good internet? (Household - for ages 0-17 years) Not on file 11/02/2023 Social Connections Answer Date Recorded How often do you feel lonely or isolated from those around you? (Adult - for ages 18 years and over) Not on file 11/02/2023 Sex and Gender Information Value Date Recorded Sex Assigned at Male 08/18/2018 7:53 AM EDT Gender Identity Male 08/18/2018 7:53 AM EDT Sexual Orientation Straight 08/18/2018 7: 53 AM EDT Job Start Date Occupation Industry Not on file Not on file Not on file documented as of this encounter Miscellaneous Notes * Telephone Encounter - Silvino Kingsley MD - 11/12/2023 12:52 PM EDTSigned Prescriptions: Disp Refills HYDROcodone-Acetaminophen 5-325 MG Oral Ta*60 Tab*0 Sig: Take 1 Tablet by mouth every 8 hours as needed for Pain, Severe.Authorizing Provider: SILVINO KINGSLEY LORazepam 1 MG Oral Tablet (Ativan) 105 Ta*0 Sig: TAKE 1 TAB IN AM, 1 AND 1/2 TABS AT LUNCH AND 1 TABAT DINNERAuthorizing Provider: SILVINO KINGSLEY * Telephone Encounter - Elicia Pérez [facility] - 11/12/2023 8:11 AM EDTPending Prescriptions: Disp Refills HYDROcodone-Acetaminophen 5-325 MG Oral Ta*60 Tab*0 Sig: Take 1 Tablet by mouth every 8 hours as needed for Pain, Severe. LORazepam 1 MG Oral Tablet (Ativan) 105 Ta*0 Sig: TAKE 1 TAB IN AM, 1 AND 1/2 TABS AT LUNCH AND 1 TAB AT DINNER * Telephone Encounter - Elicia Pérez RPh - 11/12/2023 8:09 AM EDT I have reviewed the patients controlled substance dispensing history in the Prescription Drug Monitoring Program in compliance with the [facility] regulations before prescribing a controlled substance. PDMP checked on 11/12/2023. Pending Prescriptions: Disp Refills HYDROcodone-Acetaminophen 5-325 MG Oral T*60 Tab*0 Sig: Take 1 Tablet by mouth every 8 hours as needed for Pain, Severe. LORazepam 1 MG Oral Tablet (Ativan) 105 Ta*0 Sig: TAKE 1 TAB IN AM, 1 AND 1/2 TABS AT LUNCH AND 1 TAB AT DINNER Last Visit: 10/22/2023 (in office), 09/01/2022 (telemedicine) Next Visit: 01/04/2024 Date medication was last filled: 09/19 (both meds) Date medication is due for refill: 10/08 - hydrocodone/apap; 10/18 - lorazepam Pharmacy: [id number] Is this request for a controlled substance? Yes and Urine Drug Screen Not completed Toxicology results: No results found for this or any previous visit. Please approve if appropriate. Thank you, Elicia Pérez, PharmD Clinical Pharmacist [facility] ([facility] [phone] 11/12/2023, 8:09 AM * Telephone Encounter - Jazmyn Stack, installation service representative - 11/12/2023 7:49 AM EDT Pt requesting HIGH PRIORITY due to out of med Did you pend patient's preferred pharmacy and medication before forwarding?yes Pharmacy: [id number] [address] [facility] Pending Prescriptions: Disp Refills HYDROcodone-Acetaminophen 5-325 MG Oral T*60 Tab*0 Sig: Take 1 Tablet by mouth every 8 hours as needed for Pain, Severe. LORazepam 1 MG Oral Tablet (Ativan) 105 Ta*0 Sig: TAKE 1 TAB IN AM, 1 AND 1/2 TABS AT LUNCH AND 1 TAB AT DINNER Last Visit: 10/22/2023 (in office), 09/01/2022 (telemedicine) Next Visit: 01/04/2024 If no future appointments scheduled, and last appointment is greater than a year ago, please schedule patient for a follow-up appointment Last date the medication was ordered: 09/20/23 Is this request for a controlled substance?Yes, What was the last refill date 09/20/23 w/ quantity 60, 105 and dosage 1, 5-325 and Urine Drug Screen Not completed Urine Drug Screen:No results found for this or any previous visit. Patient Phone Numbers [employer] [phone] Labs: Lab Results Component Value Date/Time CREAT 1.4 (H) 10/15/2021 07:58 AM CREAT 1.52 (A) 05/20/2019 12:00 AM CREAT 1.6 (H) 12/13/2018 09:22 AM CREAT 1.1 04/10/1996 10:55 AM POTASSIUM 4.5 10/15/2021 07:58 AM POTASSIUM 3.8 05/20/2019 12:00 AM POTASSIUM 4.8 12/13/2018 09:22 AM POTASSIUM 4.4 04/10/1996 10:55 AM TSH 3.85 04/24/2013 09:48 AM TSH 2.59 04/10/1996 10:55 AM LDLCALC 99 10/15/2021 07:58 AM LDLCALC 63 10/23/2013 09:36 AM LDLCALC 147. (H) 08/10/1996 09:00 AM LDLDIRECT 113 09/27/2017 03:29 PM ALT 8 (L) 10/15/2021 07:58 AM ALT 20 12/13/2018 09:22 AM ALT 17 08/10/1996 09:00 AM documented in this encounter Plan of Treatment Upcoming Encounters Date Type Department Care Team (Late st Contact Info) Description 01/04/2024 6:20 PM EDT Tele[facility]icine [facility] [address] [facility] [phone] Silvino Kingsley [facility] [address] [facility] [address] Health Maintenance Due Date Last Done Comments Alpha-1 Antitrypsin 1953 AAA Monitoring 05/15/2014 05/15/2013, 11/14, 12/12/2001 Zoster Vaccines (2 of 3) 06/09/2014 04/14/2014 DISCUSS TOBACCO CESSATION (REFER TO SMARTSET #3291) 07/18/2015 07/17/2014 (Discussed) Albumin/Creatinine Ratio 03/26/2018 017, 12/13/2015, 04/30/2014, Additional history exists DTaP,Tdap,and Td Vaccines (1 - Tdap) 07/07/2019 07/06/2019, 06/10/1999 CKD HGB USE SMARTSET 07389 10/15/202210/15, 10/15/2021, 04/06/2018, Additional history exists CKD PHOS USE SMARTSET 14180 10/15/2022 06/0 05/2021, 12/13/2018, 03/25/2017, Additional history exists Depression Monitoring 10/27/2022 10/27/2021 COVID-19 Vaccine ( - season) 2023 Influenza Vaccine (FLU shot) (Season Ended) 2024 01/25/2020, 04/06/2018, 03/25/2017, Additional history exists O2 ASSESSMENT COMPLETED IN PAST YEAR FOR COPD 10/21/2024 10/22/2023 Pneumococcal Vaccine: 65+ Years Completed 05/23/2015, 03/22/2007, 12/24/1998 GARDASIL-HPV IMMUNIZATION SERIES Aged Out No longer eligible based on patient's age to complete this topic Hepatitis B Aged Out No longer eligi ble based on patient's age to complete this topic MENINGOCOCCAL (MENACTRA/MENVEO) Aged Out No longer eligible based on patient's age to complete this topic documented as of this encounter Medical Devices Not on filedocumented as of this encounter Visit Diagnoses Diagnosis Spinal stenosis of lumbar region with neurogenic claudication Spinal stenosis, lumbar region, with neurogenic claudication Anxiety state Anxiety state, unspecified documented in this encounter Advance Directives Documents on File Type Date Recorded 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
--- OUTSIDE RECORDS SUMMARY | 2024-02-14 09:14 | External Medical Summary | Summary of Care ---
Author Name Unknown Organization [facility] Address [address] [place] [address] Phone [phone] Care Team Providers Care Engineer/Conductor Name Role Phone Silvino Kingsley MD Primary Care Provider [phone]- [phone] Reason for Visit * Reason Comments eRx-Medication Refill Encounter Details Date Type Department Care Team (Late st Contact Info) Description 11/18/2023 Refill [facility] [address] [place] [address] Silvino Kingsley MD [address] [place] [address] Anxiety state Allergies Active Allergy Reactions Criticality Noted Date Comments Atorvastatin Muscle pain Medium 07/06/2019 Ivp Dye 04/22/1999 hives Pseudoephedrine 06/30/1999 hives Metoclopramide Hcl Neuro complications (Please comment) High 01/28/2009 Muscle twitching Sulfa Antibiotics 04/22/1999 rash,sob Tramadol Psych complications 07/14/2013 documented as of this encounter (statuses as of 11/19/2023) Medications Medication Sig Dispensed Refills Start Date End Date Status ASPIRIN EC 81 MG PO TBECIndications:ASC VD (arteriosclerotic cardiovascular disease) 1 tablet by mouth once a day 0 2 Active hydrocortisone 1%-clotrimazole 1% 1:1 creamIndications:De rmatitis Apply topically to affected area 2 times a day. Aviva-rectal area 56 g 3 8 Active nitroglycerin (NITROSTAT) 0.4 MG SUBLIndications:ASC VD (arteriosclerotic cardiovascular disease) one tab under tongue as needed for chest pain maximum 3 doses 30 Tab 5 9 Active triamcinolone acetonide (ARISTOCORT) 0.1 % creamIndications:De rmatitis Apply topically to affected area 2 times a day. To affected area. 80 g 5 0 Active Additional Information Patient not taking.Reported on 10/22/2023 Gabapentin 100 MG Oral Capsule (Neurontin)Indicati ons:Restless legs syndrome,Sleep disturbance TAKE 1 CAPSULE BY MOUTH 3 TIMES A DAY. MAY TAKE EXTRA CAP UP TO AN ADDITIONAL 2 TIMES A DAY NEEDED FOR HEADACHE AND NECK PAIN 300 Capsule 3 3 Active Montelukast Sodium 10 MG Oral Tablet (Singulair) TAKE 1 TABLET BY MOUTH EVERY DAY 90 Tablet 2 3 Active busPIRone HCl 10 MG Oral Tablet (Buspar)Indications :Agitation Take 1 Tablet by mouth in the morning and 1 Tablet before bedtime. Take for agitation as needed. 20 Tablet 4 Active HYDROcodone-Acetami nophen 5-325 MG Oral TabletIndications: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 60 Tablet 4 Active LORazepam 1 MG Oral Tablet (Ativan)Indications :Anxiety state TAKE 1 TAB IN AM, 1 AND 1/2 TABS AT LUNCH AND 1 TAB AT DINNER 105 Tablet 4 Active Citalopram Hydrobromide 40 MG Oral Tablet (CeleXA)Indications :Anxiety state TAKE 1 TABLET BY MOUTH EVERY DAY 90 Tablet 1 4 Active Citalopram Hydrobromide 40 MG Oral Tablet (CeleXA)Indications :Anxiety state TAKE 1 TABLET BY MOUTH EVERY DAY 90 Tablet 2 3 11/19/19 24 Discontinued Hospital, Clinic, or Other Facility Administered Medication Ordered Dose Route Frequency Start Date End Date Status albuterol sulfate (PROVENTIL) (2.5 MG/3ML) 0.083% inhalation solution 2.5 mgIndications:COPD, moderate (HCC) 2.5 mg NEBULIZER Q4H PRN 04/16/2017 Active documented as of this encounter (statuses as of 11/19/2023) Active Problems Problem Noted Date Diagnosed Date [...] as of this encounter (statuses as of 11/19/2023) Resolved Problems Problem Noted Date Diagnosed Date [...] per day 11/02/2014 08/18/2018 Inflammation of toenail 08/27/201411/152016 Cervicalgia 07/17/2014 08/15/2018 DJD (degenerative joint dise [...] Overview: Per CKD protocol Hypertensive heart disease 10/05/2011 1 06/25/2018 Overview: duplicate HTN, goal below 130/80 10/05/201110/23 [...] obstruction or gangrene 06/17/2000 11/02/2014 ALCOH DEP [id number] 06/17/2000 POST-NASAL DRIP 12/22/1999 11/02/2014 CERVICAL DJD/DDD [...] as of this encounter (statuses as of 11/19/2023) Immunizations Name Administration Dates Next Due Pneumococcal [...] encounter Miscellaneous Notes * Telephone Encounter - Ericka Sutton, [facility] - 11/19/2023 12:53 PM EDTSigned Prescriptions: Disp Refills Citalopram Hydrobromide 40 MG Oral Tablet *90 Tab*1 Sig: TAKE 1 TABLET BY MOUTH EVERY DAYAuthorizing Provider: SILVINO KINGSLEY User: ERICKA SUTTON-------- documented in this encounter Plan of Treatment Upcoming Encounters Date Type Department Care Team (Late st Contact Info) Description 01/04/2024 6:20 PM EDT Telemedicine [facility] [address] [place] [address] Silvino Kingsley MD [address] [facility] [address] Health Maintenance Due Date Last Done Comments Alpha-1 Antitrypsin 1953 AAA Monitoring 05/15/2014 05/15/2013, 11/14, 12/12/2001 Zoster Vaccines (2 of 3) 06/09/2014 04/14/2014 DISCUSS TOBACCO CESSATION (REFER TO SMARTSET #3291) 07/18/2015 07/17/2014 (Discussed) Albumin/Creatinine Ratio 03/26/2018 017, 12/13/2015, 04/30/2014, Additional history exists DTaP,Tdap,and Td Vaccines (1 - Tdap) 07/07/2019 07/06/2019, 06/10/1999 CKD HGB USE SMARTSET 98610 10/15/202210/15, 10/15/2021, 04/06/2018, Additional history exists CKD PHOS USE SMARTSET 77512 10/15/2022 06/0 05/2021, 12/13/2018, 03/25/2017, Additional history exists Depression Monitoring 10/27/2022 10/27/2021 COVID-19 Vaccine ( - season) 2023 Influenza Vaccine (FLU shot) (#1) 2024 01/25/2020, 04/06/2018, 03/25/2017, Additional history exists O2 ASSESSMENT COMPLETED IN PAST YEAR FOR COPD 10/21/2024 10/22/2023 Pneumococcal Vaccine: 65+ Years Completed 05/23/2015, 03/22/2007, 12/24/1998 HPV (Gardasil) Vaccine Aged Out No lo nger eligible based on patient's age to complete this topic Hepatitis B Vaccine Aged Out No longe r eligible based on patient's age to complete this topic MENINGOCOCCAL (MENACTRA/MENVEO) Aged Out No longer eligible based on patient's age to complete this topic documented as of this encounter Medical Devices Not on filedocumented as of this encounter Visit Diagnoses Diagnosis Anxiety state Anxiety state, unspecified documented in this encounter Advance Directives Documents on File Type Date Recorded Patient Chicken Vaccinator Expl anation Advance Directives and Living Will 02/11/2021 ADVANCE DIRECTIVE / LIVING WILL Care Teams Engineer/Conductor Relationship Specialty Start Date End Date Silvino Kingsley MD [address] [place] [address] PCP - General Family Medicine 08/29/18 documented as of this encounter
--- OUTSIDE RECORDS SUMMARY | 2024-02-14 09:14 | External Medical Summary | Summary of Care ---
Author Name Unknown Organization [facility] Address [address] [address] Phone [phone] Care Team Providers Care Club Director Name Role Phone Silvino Kingsley MD Primary Care Provider [phone]- [phone] Reason for Visit * Reason Comments eRx-Medication Refill Encounter Details Date Type Department Care Team (Late st Contact Info) Description 11/21/2023 Refill [facility] [address] [place] [address] Silvino Kingsley MD [address] [place] [address] Allergies Active Allergy Reactions Criticality Noted Date Comments Atorvastatin Muscle pain Medium 07/06/2019 Ivp Dye 04/22/1999 hives Pseudoephedrine 06/30/1999 hives Metoclopramide Hcl Neuro complications (Please comment) High 01/28/2009 Muscle twitching Sulfa Antibiotics 04/22/1999 rash,sob Tramadol Psych complications 07/14/2013 documented as of this encounter (statuses as of 11/21/2023) Medications Medication Sig Dispensed Refills Start Date [...] NECK PAIN 300 Capsule 3 3 Active busPIRone HCl 10 MG Oral [...] EVERY DAY 90 Tablet 1 4 Active Montelukast Sodium 10 MG Oral Tablet (Singulair) TAKE 1 TABLET BY MOUTH EVERY DAY 90 Tablet 3 4 Active Montelukast Sodium 10 MG Oral Tablet (Singulair) TAKE 1 TABLET BY MOUTH EVERY DAY 90 Tablet 2 3 11/21/19 24 Discontinued Hospital, Clinic, or Other Facility Administered Medication Ordered Dose Route Frequency Start Date End Date Status albuterol sulfate (PROVENTIL) (2.5 MG/3ML) 0.083% inhalation solution 2.5 mgIndications:COPD, moderate (HCC) 2.5 mg NEBULIZER Q4H PRN 04/16/2017 Active documented as of this encounter (statuses as of 11/21/2023) Active Problems Problem Noted Date Diagnosed Date [...] as of this encounter (statuses as of 11/21/2023) Resolved Problems Problem Noted Date Diagnosed Date [...] obstruction or gangrene 06/17/2000 11/02/2014 ALCOH DEP [id number] 06/17/2000 POST-NASAL DRIP 12/22/1999 11/02/2014 CERVICAL DJD/DDD [...] as of this encounter (statuses as of 11/21/2023) Immunizations Name Administration Dates Next Due Pneumococcal [...] encounter Miscellaneous Notes * Telephone Encounter - Giancarlo Watson [facility] - 11/21/2023 10:58 AM EDT Signed Prescriptions: Disp Refills Montelukast Sodium 10 MG Oral Tablet (Sing*90 Tab*3 Sig: TAKE 1 TABLET BY MOUTH EVERY DAYAuthorizing Provider: SILVINO KINGSLEY User: GIANCARLO WATSON documented in this encounter Plan of Treatment Upcoming Encounters Date Type Department Care Team (Late st Contact Info) Description 01/04/2024 6:20 PM EDT Telemedicine [facility] [address] [place] [address] Silvino Kingsley MD [address] [place] [facility] [place] [address] Health Maintenance Due Date Last Done Comments Alpha-1 Antitrypsin 1953 AAA Monitoring 05/15/2014 05/15/2013, 11/14, 12/12/2001 Zoster Vaccines (2 of 3) 06/09/2014 04/14/2014 DISCUSS TOBACCO CESSATION (REFER TO SMARTSET #3291) 07/18/2015 07/17/2014 (Discussed) Albumin/Creatinine Ratio 03/26/2018 017, 12/13/2015, 04/30/2014, Additional history exists DTaP,Tdap,and Td Vaccines (1 - Tdap) 07/07/2019 07/06/2019, 06/10/1999 CKD HGB USE SMARTSET 66172 10/15/202210/15, 10/15/2021, 04/06/2018, Additional history exists CKD PHOS USE SMARTSET 57697 10/15/2022 06/0 05/2021, 12/13/2018, 03/25/2017, Additional history exists Depression Monitoring 10/27/2022 10/27/2021 COVID-19 Vaccine (1 - season) 2023 Influenza Vaccine (FLU shot) [...] Not on filedocumented as of this encounter Advance Directives Documents on File Type Date Recorded Patient Research And Development Technician Expl anation Advance Directives and Living Will 02/11/2021 ADVANCE DIRECTIVE / LIVING WILL Care Teams Club Director Relationship Specialty Start Date End Date Silvino Kingsley MD [address] [place] [address] PCP - General Family Medicine 08/29/18 documented as of this encounter
--- OUTSIDE RECORDS SUMMARY | 2024-02-14 09:14 | External Medical Summary | Summary of Care ---
Author Name Unknown Organization [facility] Address [address] [facility] [place] [address] Phone [phone] Care Team Providers Care Power Plant Technician Name Role Phone Maxine Kingsley MD Primary Care Provider +1- [phone] Reason for Referral * Medication Prior Authorization - Closed Specialty Diagnoses / Procedures Referred By Juuj garrett Referred To Contact Diagnoses Spinal stenosis of lumbar region with neurogenic claudication Maxine Kingsley MD [address] [place] [address] Referral ID Status Reason Start Date Expiration Date Visits Re quested Visits Authorized [id number] Closed 999 999 * Medication Prior Authorization - Closed Specialty Diagnoses / Procedures Referred By Juju garrett Referred To Contact Diagnoses Anxiety state Maxine Kingsley MD [address] [place] [address] Referral ID Status Reason Start Date Expiration Date Visits Re quested Visits Authorized [id number] Closed 999 999 Reason for Visit * Reason Onset Date Comments Medication Refill 12/23/2023 Encounter Details Date Type Department Care Team (Late st Contact Info) Description 12/23/2023 Refill [facility] [address] [facility] [place] [id number] Maxine Kingsley MD [address] [place] [address] Anxiety state; Spinal stenosis of lumbar region with neurogenic claudication Allergies Active Allergy Reactions Criticality Noted Date Comments Atorvastatin Muscle pain Medium 07/06/2019 Ivp Dye 04/22/1999 hives Pseudoephedrine 06/30/1999 hives Metoclopramide Hcl Neuro complications (Please comment) High 01/28/2009 Muscle twitching Sulfa Antibiotics 04/22/1999 rash,sob Tramadol Psych complications 07/14/2013 documented as of this encounter (statuses as of 12/23/2023) Medications Medication Sig Dispensed Refills Start Date [...] NECK PAIN 300 Capsule 3 05/27/2022 Active busPIRone HCl 10 MG Oral Tablet (Buspar)Indications :Agitation Take 1 Tablet by mouth in the morning and 1 Tablet before bedtime. Take for agitation as needed. 20 Tablet 10/22/2023 Active Citalopram Hydrobromide 40 MG Oral Tablet (CeleXA)Indications :Anxiety state TAKE 1 TABLET BY MOUTH EVERY DAY 90 Tablet 1 11/19/2023 Active Montelukast Sodium 10 MG Oral Tablet (Singulair) TAKE 1 TABLET BY MOUTH EVERY DAY 90 Tablet 3 11/21/2023 Active LORazepam 1 MG Oral Tablet (Ativan)Indications :Anxiety state TAKE 1 TAB IN AM, 1 AND 1/2 TABS AT LUNCH AND 1 TAB AT DINNER 105 Tablet 12/23/2023 Active HYDROcodone-Acetami nophen 5-325 MG Oral TabletIndications: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 60 Tablet 12/23/2023 Active HYDROcodone-Acetami nophen 5-325 MG Oral TabletIndications: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 60 Tablet 11/12/2023 12/23/19 24 Discontinu ed(Refill) LORazepam 1 MG Oral Tablet (Ativan)Indications :Anxiety state TAKE 1 TAB IN AM, 1 AND 1/2 TABS AT LUNCH AND 1 TAB AT DINNER 105 Tablet 11/12/2023 12/23/19 24 Discontinu ed(Refill) Hospital, Clinic, or Other Facility Administered Medication Ordered Dose Route Frequency Start Date End Date Status albuterol sulfate (PROVENTIL) (2.5 MG/3ML) 0.083% inhalation solution 2.5 mgIndications:COPD, moderate (HCC) 2.5 mg NEBULIZER Q4H PRN 04/16/2017 Active documented as of this encounter (statuses as of 12/23/2023) Active Problems Problem Noted Date Diagnosed Date [...] as of this encounter (statuses as of 12/23/2023) Resolved Problems Problem Noted Date Diagnosed Date [...] obstruction or gangrene 06/17/2000 11/02/2014 ALCOH DEP [id number] 06/17/2000 POST-NASAL DRIP 12/22/1999 11/02/2014 CERVICAL DJD/DDD [...] as of this encounter (statuses as of 12/23/2023) Immunizations Name Administration Dates Next Due Pneumococcal [...] Types Packs/Day Years Used Date Smoking Tobacco: Every Day Cigarettes 0.5 60 Smokeless Tobacco: Never Alcohol [...] encounter Miscellaneous Notes * Telephone Encounter - Maxine Kingsley MD - 12/23/2023 9:42 AM EDTSigned Prescriptions: Disp Refills LORazepam 1 MG Oral Tablet (Ativan) 105 Ta*0 Sig: TAKE 1 TAB IN AM, 1 AND 1/2 TABS AT LUNCH AND 1 TAB AT DINNERAuthorizing Provider: MAXINE KINGSLEY HYDROcodone-Acetaminophen 5-325 MG Oral Ta*60 Tab*0 Sig: Take 1 Tablet by mouth every 8 hours as needed for Pain, Severe.Authorizing Provider: MAXINE KINGSLEY * Telephone Encounter - Mitzi West [facility] - 12/23/2023 9:41 AM EDT Pending Prescriptions: Disp Refills LORazepam 1 MG Oral Tablet (Ativan) 105 Ta*0 Sig: TAKE 1 TAB IN AM, 1 AND 1/2 TABS AT LUNCH AND 1 TAB AT DINNER HYDROcodone-Acetaminophen 5-325 MG Oral Ta*60 Tab*0 Sig: Take 1 Tablet by mouth every 8 hours as needed for Pain, Severe. * Telephone Encounter - Mitzi West RPh - 12/23/2023 9:40 AM EDT I have reviewed the patients controlled substance dispensing history in the Prescription Drug Monitoring Program in compliance with the [facility] regulations before prescribing a controlled substance. PDMP checked on 12/23/2023. Pending Prescriptions: Disp Refills LORazepam 1 MG Oral Tablet (Ativan) 105 Ta*0 Sig: TAKE 1 TAB IN AM, 1 AND 1/2 TABS AT LUNCH AND 1 TAB AT DINNER HYDROcodone-Acetaminophen 5-325 MG Oral T*60 Tab*0 Sig: Take 1 Tablet by mouth every 8 hours as needed for Pain, Severe. Last Visit: 12/07/2023 (in office), 09/01/2022 (telemedicine) Next Visit: 01/04/2024 Date medication was last filled: 11/12/23 Date medication is due for refill: 12/10/23 Pharmacy: [id number] [address] [facility] Is this request for a controlled substance? Yes and Urine Drug Screen Not completed Toxicology results: No results found for this or any previous visit. Please approve if appropriate. Thanks, Mitzi West [facility] Clinical Pharmacist [facility] [phone] * Telephone Encounter - Keyonna Gonzalez, equipment maintenance technician - 12/23/2023 9:37 AM EDT EC asking high priority, has 1 day left of meds. Did you pend patient's preferred pharmacy and medication before forwarding?yes Pharmacy: [id number] [address] [facility] Pending Prescriptions: Disp Refills LORazepam 1 MG Oral Tablet (Ativan) 105 Ta*0 Sig: TAKE 1 TAB IN AM, 1 AND 1/2 TABS AT LUNCH AND 1 TAB AT DINNER HYDROcodone-Acetaminophen 5-325 MG Oral T*60 Tab*0 Sig: Take 1 Tablet by mouth every 8 hours as needed for Pain, Severe. Last Visit: 12/07/2023 (in office), 09/01/2022 (telemedicine) Next Visit: 01/04/2024 If no future appointments scheduled, and last appointment is greater than a year ago, please schedule patient for a follow-up appointment Last date the medication was ordered: 11/12/23 Is this request for a controlled substance?Yes, What was the last refill date 11/12/23, 11/12/23 w/ quantity 105, 60 and dosage 1mg, 5-325mg and Urine Drug Screen Not completed Urine Drug Screen:No results found for this or any previous visit. Patient Phone Numbers [facility] [phone] Labs: Lab Results Component Value Date/Time CREAT [...] Info) Description 01/04/2024 6:20 PM EDT Telemedicine [facility] [address] [facility] [place] [address] [facility] [address] [facility] [address] Health Maintenance Due Date Last Done Comments Alpha-1 Antitrypsin 1953 AAA Monitoring 05/15/2014 05/15/2013, 11/14, 12/12/2001 Zoster Vaccines (2 of 3) 06/09/2014 04/14/2014 DISCUSS TOBACCO CESSATION (REFER TO SMARTSET #3291) 07/18/2015 07/17/2014 (Discussed) Albumin/Creatinine Ratio 03/26/2018 017, 12/13/2015, 04/30/2014, Additional history exists DTaP,Tdap,and Td Vaccines (1 - Tdap) 07/07/2019 07/06/2019, 06/10/1999 Adult Wellness Visit 12/14/2019 12/13/2018 CKD HGB USE SMARTSET 83402 10/15/202210/15, 10/15/2021, 04/06/2018, Additional history exists CKD PHOS USE SMARTSET 34696 10/15/2022 06/0 05/2021, 12/13/2018, 03/25/2017, Additional history exists Depression Monitoring 10/27/2022 10/27/2021 COVID-19 Vaccine ( season) 2023 Influenza Vaccine (FLU shot) (#1) 2024 01/25/2020, 04/06/2018, 03/25/2017, Additional history exists O2 ASSESSMENT COMPLETED IN PAST YEAR FOR COPD 12/06/2024 12/07/2023 Pneumococcal Vaccine: 65+ Years Completed 05/23/2015, 03/22/2007, [...] Diagnoses Diagnosis Anxiety state Anxiety state, unspecified Spinal stenosis of lumbar region with neurogenic claudication Spinal stenosis, lumbar region, with neurogenic claudication documented in this encounter Advance Directives Documents on File Type Date Recorded Patient Antique Refinisher Expl anation Advance Directives and Living Will 02/11/2021 ADVANCE DIRECTIVE / LIVING WILL Care Teams Power Plant Technician Relationship Specialty Start Date End Date Maxine Kingsley MD [address] [place] [address] PCP - General Family Medicine 08/29/18 documented as of this encounter
--- OUTSIDE RECORDS SUMMARY | 2024-02-14 09:14 | External Medical Summary | Summary of Care ---
Author Name Unknown Organization [facility] Address [address] [place] [address] Phone [phone] Care Team Providers Care Oiling Machine Operator Name Role Phone Silvino Brewer MD Primary Care Provider [phone]- [phone] Reason for Visit * Reason Comments Acute Ear wax cleaning Encounter Details Date Type Department Care Team (Late st Contact Info) Description 12/07/2023 4:00 PM EDT Office Visit [facility] [address] [place] [address] Neetu Vazquez MD [address] [place] [address] Bilateral impacted cerumen* Allergies Active Allergy Reactions Criticality Noted Date Comments Atorvastatin Muscle pain Medium 07/06/2019 Ivp Dye 04/22/1999 hives Pseudoephedrine 06/30/1999 hives Metoclopramide Hcl Neuro complications (Please comment) High 01/28/2009 Muscle twitching Sulfa Antibiotics 04/22/1999 rash,sob Tramadol Psych complications 07/14/2013 documented as of this encounter (statuses as of 12/07/2023) Medications Medication Sig Dispensed Refills Start Date End Date Status ASPIRIN EC 81 MG PO TBECIndications:ASCV D (arteriosclerotic cardiovascular disease) 1 tablet by mouth once a day 0 04/18/2012 Active hydrocortisone 1%-clotrimazole 1% 1:1 creamIndications:Anthony matitis Apply topically to affected area 2 times a day. Aviva-rectal area 56 g 3 09/27/2017 Active nitroglycerin (NITROSTAT) 0.4 MG SUBLIndications:ASCV D (arteriosclerotic cardiovascular disease) one tab under tongue as needed for chest pain maximum 3 doses 30 Tab 5 08/18/2018 Active triamcinolone acetonide (ARISTOCORT) 0.1 % creamIndications:Anthony matitis Apply topically to affected area 2 times a day. To affected area. 80 g 5 07/20/2019 Active Additional Information Patient not taking.Reported on 10/22/2023 Gabapentin 100 MG Oral Capsule (Neurontin)Indicatio ns:Restless legs syndrome,Sleep disturbance TAKE 1 CAPSULE BY MOUTH 3 TIMES A DAY. MAY TAKE EXTRA CAP UP TO AN ADDITIONAL 2 TIMES A DAY NEEDED FOR HEADACHE AND NECK PAIN 300 Capsule 3 05/27/2022 Active busPIRone HCl 10 MG Oral Tablet (Buspar)Indications: Agitation Take 1 Tablet by mouth in the morning and 1 Tablet before bedtime. Take for agitation as needed. 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 60 Tablet 11/12/2023 Active LORazepam 1 MG Oral Tablet (Ativan)Indications: Anxiety state TAKE 1 TAB IN AM, 1 AND 1/2 TABS AT LUNCH AND 1 TAB AT DINNER 105 Tablet 11/12/2023 Active Citalopram Hydrobromide 40 MG Oral Tablet (CeleXA)Indications: Anxiety state TAKE 1 TABLET BY MOUTH EVERY DAY 90 Tablet 1 11/19/2023 Active Montelukast Sodium 10 MG Oral Tablet (Singulair) TAKE 1 TABLET BY MOUTH EVERY DAY 90 Tablet 3 11/21/2023 Active Hospital, Clinic, or Other Facility Administered Medication Ordered Dose Route Frequency Start Date End Date Status albuterol sulfate (PROVENTIL) (2.5 MG/3ML) 0.083% inhalation solution 2.5 mgIndications:COPD, moderate (HCC) 2.5 mg NEBULIZER Q4H PRN 04/16/2017 Active documented as of this encounter (statuses as of 12/07/2023) Active Problems Problem Noted Date Diagnosed Date [...] as of this encounter (statuses as of 12/07/2023) Resolved Problems Problem Noted Date Diagnosed Date [...] obstruction or gangrene 06/17/2000 11/02/2014 ALCOH DEP [id number] 06/17/2000 POST-NASAL DRIP 12/22/1999 11/02/2014 CERVICAL DJD/DDD [...] as of this encounter (statuses as of 12/07/2023) Immunizations Name Administration Dates Next Due Pneumococcal [...] on file documented as of this encounter Last Filed Vital Signs Vital Sign Reading Time Taken Comments Blood Pressure 102/66 12/07/2023 4:07 PM EDT Pulse 73 12/07/2023 4:07 PM EDT Temperature 36.9 C (98.5 F) 12/07/2023 4:07 PM ED T Respiratory Rate 17 12/07/2023 4:07 PM EDT Oxygen Saturation 94% 12/07/2023 4:07 PM EDT Inhaled Oxygen Concentration - - Weight - - Height 172.7 cm (5' 8") 12/07/2023 4:07 PM EDT Body Mass Index - - documented in this encounter Progress Notes * Neetu Vazquez MD - 12/07/2023 4:11 PM EDT ASSESSMENT / PLAN: Hay Shelton is a 88 year old male Bilateral impacted cerumen (Primary) - REMOVAL IMPACTED CERUMEN IRRIGATION/LAVAGE, UNILAT Here for wax removal - cerumen impaction visualized in bilateral ears - nursing to lavage There are no Patient Instructions on file for this visit. documented in this encounter Plan of Treatment Upcoming Encounters Date Type Department Care Team (Late st Contact Info) Description 01/04/2024 6:20 PM EDT Telemedicine [facility] [address] [place] [address] Silvino Brewer MD [address] [place] [address] Scheduled Orders Name Type Priority Associated Diagnoses Orde r Schedule REMOVAL IMPACTED CERUMEN IRRIGATION/LAVAGE, UNILAT Procedures Routine Bilateral impacted cerumen Ordered: 12/07/2023 Health Maintenance Due Date Last Done Comments Alpha-1 Antitrypsin 1953 AAA Monitoring 05/15/2014 05/15/2013, 11/14, 12/12/2001 Zoster Vaccines (2 of 3) 06/09/2014 04/14/2014 DISCUSS TOBACCO CESSATION (REFER TO SMARTSET #3291) 07/18/2015 07/17/2014 (Discussed) Albumin/Creatinine Ratio 03/26/2018 017, 12/13/2015, 04/30/2014, Additional history exists DTaP,Tdap,and Td Vaccines (1 - Tdap) 07/07/2019 07/06/2019, 06/10/1999 CKD HGB USE SMARTSET 05885 10/15/202210/15, 10/15/2021, 04/06/2018, Additional history exists CKD PHOS USE SMARTSET 02837 10/15/2022 06/0 05/2021, 12/13/2018, 03/25/2017, Additional history exists Depression Monitoring 10/27/2022 10/27/2021 COVID-19 Vaccine ( season) 2023 *CXR OR CT FOR COPD EVER 11/28/2023 Influenza Vaccine (FLU shot) (#1) 2024 01/25/2020, [...] as of this encounter Visit Diagnoses Diagnosis Bilateral impacted cerumen- Primary Impacted cerumen documented in this encounter Advance Directives Documents on File Type Date Recorded 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
--- OUTSIDE RECORDS SUMMARY | 2024-02-14 09:14 | External Medical Summary | Summary of Care ---
Author Name Unknown Organization [facility] Address [address] [facility] [place] [address] Phone [phone] Care Team Providers Care Shampooer Name Role Phone Maxine Kingsley MD Primary Care Provider [phone]- [phone] Reason for Referral * Medication Prior Authorization - Closed Specialty Diagnoses / Procedures Referred By Juju garrett Referred To Contact Diagnoses Spinal stenosis of lumbar region with neurogenic claudication Maxine Kingsley MD [address] [place] [address] Referral ID Status Reason Start Date Expiration Date Visits Re quested Visits Authorized [id number] Closed 999 999 * Medication Prior Authorization - Closed Specialty Diagnoses / Procedures Referred By Juju garrett Referred To Contact Diagnoses Anxiety state Maxine Kingsley MD [address] [place] [address] Referral ID Status Reason Start Date Expiration Date Visits Re quested Visits Authorized [id number] Closed 999 999 Reason for Visit * Reason Onset Date Comments Medication Refill 01/26/2024 Encounter Details Date Type Department Care Team (Late st Contact Info) Description 01/26/2024 Refill [facility] [address] [place] [id number] Maxine Kingsley MD [address] [place] [address] Anxiety state; Spinal stenosis of lumbar region with neurogenic claudication Allergies Active Allergy Reactions Criticality Noted Date Comments Atorvastatin Muscle pain Medium 07/06/2019 Ivp Dye 04/22/1999 hives Pseudoephedrine 06/30/1999 hives Metoclopramide Hcl Neuro complications (Please comment) High 01/28/2009 Muscle twitching Sulfa Antibiotics 04/22/1999 rash,sob Tramadol Psych complications 07/14/2013 documented as of this encounter (statuses as of 01/28/2024) Medications Medication Sig Dispensed Refills Start Date [...] EVERY DAY 90 Tablet 3 11/21/2023 Active busPIRone HCl 10 MG Oral Tablet (Buspar)Indications :Agitation Take 1 Tablet by mouth in the morning and 1 Tablet before bedtime. Take for agitation as needed. 40 Tablet 01/04/2024 Active LORazepam 1 MG Oral Tablet (Ativan)Indications :Anxiety state TAKE 1 TAB IN AM, 1 AND 1/2 TABS AT LUNCH AND 1 TAB AT DINNER 105 Tablet 01/28/2024 Active HYDROcodone-Acetami nophen 5-325 MG Oral TabletIndications: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 60 Tablet 01/28/2024 Active LORazepam 1 MG Oral Tablet (Ativan)Indications :Anxiety state TAKE 1 TAB IN AM, 1 AND 1/2 TABS AT LUNCH AND 1 TAB AT DINNER 105 Tablet 12/23/2023 01/26/20 24 Discontinu ed(Refill) HYDROcodone-Acetami nophen 5-325 MG Oral TabletIndications: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 60 Tablet 12/23/2023 01/26/20 24 Discontinu ed(Refill) Hospital, Clinic, or Other Facility Administered Medication Ordered Dose Route Frequency Start Date End Date Status albuterol sulfate (PROVENTIL) (2.5 MG/3ML) 0.083% inhalation solution 2.5 mgIndications:COPD, moderate (HCC) 2.5 mg NEBULIZER Q4H PRN 04/16/2017 Active documented as of this encounter (statuses as of 01/28/2024) Active Problems Problem Noted Date Diagnosed Date [...] as of this encounter (statuses as of 01/28/2024) Resolved Problems Problem Noted Date Diagnosed Date [...] obstruction or gangrene 06/17/2000 11/02/2014 ALCOH DEP [id number] 06/17/2000 POST-NASAL DRIP 12/22/1999 11/02/2014 CERVICAL DJD/DDD [...] as of this encounter (statuses as of 01/28/2024) Immunizations Name Administration Dates Next Due Pneumococcal Conjugate Vacc, 13 Valent (Prevnar) 05/23/2015 Pneumococcal Polysaccharide PPV23 (Pneumovax) 03/22/2007 Season Influenza, Quad, PF, Adjuvanted, 65+ Yrs, IM (FLUAD) 01/25/2020 Seasonal Influenza, PF, 6 M & above, IM , (FluLaval or Fluzone) 04/06/2018,03/25/2017 Seasonal Influenza, Quadriva lent, No Preserve, IM 02/19/2016 Seasonal Influenza, Trivalen t, (IIV3), with Preserv, (Fluzone) 01/31/2015,03/14/2014,02/27/2013,01/26,02/06/2011,04/08/2010,01/23/2009 ,03/14/2008,03/22/2007,03/31/2006 TD, Preservative Free 07/06/2019 Varicella [...] Telephone Encounter - Maxine Kingsley MD - 01/28/2024 9:23 AM EDTSigned Prescriptions: Disp Refills LORazepam 1 MG Oral Tablet (Ativan) 105 Ta*0 Sig: TAKE 1 TAB MITZI, 1 AND 1/2 TABS AT LUNCH AND 1 TAB AT DINNERAuthorizing Provider: MAXINE KINGSLEY HYDROcodone-Acetaminophen 5-325 MG Oral Ta*60 Tab*0 Sig: Take 1 Tablet by mouth every 8 hours as needed for Pain, Severe.Authorizing Provider: MAXINE KINGSLEY * Telephone Encounter - Ericka Frankel RP - 01/28/2024 8:09 AM EDTPending Prescriptions: Disp Refills LORazepam 1 MG Oral Tablet (Ativan) 105 Ta*0 Sig: TAKE 1 TAB IN AM, 1 AND 1/2 TABS AT LUNCH AND 1 TAB AT DINNER HYDROcodone-Acetaminophen 5-325 MG Oral Ta*60 Tab*0 Sig: Take 1 Tablet by mouth every 8 hours as needed for Pain, Severe. * Telephone Encounter - Ericka Frankel RPh - 01/28/2024 8:08 AM EDT I have reviewed the patients controlled substance dispensing history in the Prescription Drug Monitoring Program in compliance with the [place] regulations before prescribing a controlled substance. PDMP checked on 01/28/2024. Pending Prescriptions: Disp Refills LORazepam 1 MG Oral Tablet (Ativan) 105 Ta*0 Sig: TAKE 1 TAB IN AM, 1 AND 1/2 TABS AT LUNCH AND 1 TAB AT DINNER HYDROcodone-Acetaminophen 5-325 MG Oral T*60 Tab*0 Sig: Take 1 Tablet by mouth every 8 hours as needed for Pain, Severe. Last Visit: 12/07/2023 (in office), 09/01/2022 (telemedicine) Next Visit: Visit date not found Date medication was last filled: 12/23/23, 12/31/23 Date medication is due for refill: 01/22/24, 01/19/24 Pharmacy: [id number] [address] [facility] Is this request for a controlled substance? Yes and Urine Drug Screen Not completed Toxicology results: No results found for this or any previous visit. Please approve if appropriate. Thanks, Ericka Frankel PharmD Clinical Pharmacist [facility] ([facility]) [phone] 01/28/2024, 8:08 AM * Telephone Encounter - Keyonna Sumner CPhT - 01/26/2024 1:08 PM EDT Did you pend patient's preferred pharmacy and medication before forwarding?yes Pharmacy: [id number] [facility] Pending Prescriptions: Disp Refills LORazepam 1 MG Oral Tablet (Ativan) 105 Ta*0 Sig: TAKE 1 TAB IN AM, 1 AND 1/2 TABS AT LUNCH AND 1 TAB AT DINNER HYDROcodone-Acetaminophen 5-325 MG Oral T*60 Tab*0 Sig: Take 1 Tablet by mouth every 8 hours as needed for Pain, Severe. Last Visit: 12/07/2023 (in office), 09/01/2022 (telemedicine) Next Visit: Visit date not found If no future appointments scheduled, and last appointment is greater than a year ago, please schedule patient for a follow-up appointment Last date the medication was ordered: 12/23/2023 Is this request for a controlled substance?Yes, What was the last refill date 12/23/2023 w/ quantity 60 and 105 and dosage 5-325 MG and 1 MG and Urine Drug Screen Not completed Urine Drug Screen:No results found for this or any previous visit. Patient Phone Numbers [facility] [phone] Labs: Lab Results Component Value Date/Time CREAT 1.4 (H) 10/15/2021 07:58 AM CREAT 1.52 (A) 05/20/2019 12:00 AM CREAT 1.6 (H) 12/13/2018 09:22 AM CREAT 1.1 04/10/1996 10:55 AM POTASSIUM 4.5 10/15/2021 07:58 AM POTASSIUM 3.8 05/20/2019 12:00 AM POTASSIUM 4.8 12/13/2018 09:22 AM POTASSIUM 4.4 04/10/1996 10:55 AM TSH 3.85 04/24/2013 09:48 AM TSH 2.59 04/10/1996 10:55 AM LDL 99 10/15/2021 07:58 AM LDL 113 09/27/2017 03:29 PM LDL 63 10/23/2013 09:36 AM LDL 147. (H) 08/10/1996 09:00 AM ALT 8 (L) 10/15/2021 07:58 AM ALT 20 12/13/2018 09:22 AM ALT 17 08/10/1996 09:00 AM documented in this encounter Plan of Treatment Health Maintenance Due Date Last Done Comments Alpha-1 Antitrypsin 1953 AAA Monitoring 05/15/2014 05/15/2013, 11/14, 12/12/2001 Zoster Vaccines (2 of 3) 06/09/2014 04/14/2014 DISCUSS TOBACCO CESSATION (REFER TO SMARTSET #3291) 07/18/2015 07/17/2014 (Discussed) Albumin/Creatinine Ratio 03/26/2018 017, 12/13/2015, 04/30/2014, Additional history exists DTap/Tdap Vaccines (1 - Tdap) 07/07/2019 07/06/2019, 06/10/1999 Adult Wellness Visit 12/14/2019 12/13/2018 CKD HGB USE SMARTSET 28599 10/15/202210/15, 10/15/2021, 04/06/2018, Additional history exists CKD PHOS USE SMARTSET 64034 10/15/2022 06/0 05/2021, 12/13/2018, 03/25/2017, Additional history exists Depression Monitoring 10/27/2022 10/27/2021 COVID-19 Vaccine ( season) 2024 Influenza Vaccine (FLU shot) (#1) 2024 01/25/2020, [...] Documents on File Type Date Recorded Patient Wheel Truer Expl anation Advance Directives and Living Will 02/11/2021 ADVANCE DIRECTIVE / LIVING WILL Care Teams Shampooer Relationship Specialty Start Date End Date Maxine Kingsley MD [address] [place] [address] PCP - General Family Medicine 08/29/18 documented as of this encounter
--- OUTSIDE RECORDS SUMMARY | 2024-02-14 09:15 | External Medical Summary | Summary of Care ---
Author Name Unknown Organization [facility] Address [address] [address] Phone [phone] Care Team Providers Care Caser Up Name Role Phone Silvino Brewer MD Primary Care Provider +1- [phone] Reason for Visit * Reason Onset Date Comments Advice 10/13/2023 Big toe rt foot nail Encounter Details Date Type Department Care Team (Late st Contact Info) Description 10/13/[address] [facility] [address] [place] [address] Silvino Brewer MD [address] [place] [address] Advice (Big toe rt foot nail) Allergies Active Allergy Reactions Criticality Noted Date Comments Atorvastatin Muscle pain Medium 07/06/2019 Ivp Dye 04/22/1999 hives Pseudoephedrine 06/30/1999 hives Metoclopramide Hcl Neuro complications (Please comment) High 01/28/2009 Muscle twitching Sulfa Antibiotics 04/22/1999 rash,sob Tramadol Psych complications 07/14/2013 documented as of this encounter (statuses as of 11/08/2023) Medications Medication Sig Dispensed Refills Start Date [...] EVERY DAY 90 Tablet 2 02/04/2023 Active HYDROcodone-Acetami nophen 5-325 MG Oral TabletIndications: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 60 Tablet 09/20/2023 Active LORazepam 1 MG Oral Tablet (Ativan)Indications :Anxiety state TAKE 1 TAB IN AM, 1 AND 1/2 TABS AT LUNCH AND 1 TAB AT DINNER 105 Tablet 09/20/2023 Active ACETAMINOPHEN 500 MG PO TABSIndications:Juan kache,Spasm of muscle Two pills by mouth 3 times daily, as needed for pain 04/18/2012 10/22/19 24 Discontinu ed(Medicat ion List Clean Up) Ackbee-Ordealoxl-Kv aluron-MSM (GLUCOSAMINE CHONDROITIN JOINT) TABS Take by mouth. 12/21/2018 10/22/19 24 Discontinu ed(Medicat ion List Clean Up) Multiple Vitamins TABS Take by mouth. 12/21/2018 10/22/19 24 Discontinu ed(Medicat ion List Clean Up) polyethylene glycol 3350 (MIRALAX) 255 gram powderIndications:S heidi stenosis of lumbar region with neurogenic claudication Take 17 g by mouth as needed for Constipation. Dissolve one heaping tablespoon in 8 ounces of water or juice. 1 Bottle 2 2019 10/22/19 24 Discontinu ed(Medicat ion List Clean Up) nicotine (NICODERM CQ) 21 MG/24HR Patch Place 1 Patch topically on the skin daily. On upper body/upper arm, change once a day for 6 weeks. 42 Patch 01/25/2020 10/22/19 24 Discontinu ed(Medicat ion List Clean Up) Benzonatate 100 MG Oral Capsule (Tessalvenita Zepeda)Indications: Dry cough Take 1 Capsule by mouth 3 times a day as needed for Cough. 30 Capsule 1 04/02/2021 10/22/19 24 Discontinu ed(Medicat ion List Clean Up) HYDROcodone-Acetami nophen 10-325 MG Oral TabletIndications:S heidi stenosis of lumbar region with neurogenic claudication Take 0.5 Tablets by mouth every 8 hours as needed for Pain, Severe. 30 Tablet 10/06/2022 10/22/19 24 Discontinu ed(Medicat ion List Clean Up) busPIRone HCl 10 MG Oral Tablet (Buspar)Indications :Agitation Take 1 Tablet by mouth in the morning and 1 Tablet before bedtime. Take for agitation as needed. 20 Tablet 12/16/2022 10/22/19 24 Discontinu ed(Refill) Hospital, Clinic, or Other Facility Administered Medication Ordered Dose Route Frequency Start Date End Date Status albuterol sulfate (PROVENTIL) (2.5 MG/3ML) 0.083% inhalation solution 2.5 mgIndications:COPD, moderate (HCC) 2.5 mg NEBULIZER Q4H PRN 04/16/2017 Active documented as of this encounter (statuses as of 11/08/2023) Active Problems Problem Noted Date Diagnosed Date [...] as of this encounter (statuses as of 11/08/2023) Resolved Problems Problem Noted Date Diagnosed Date [...] obstruction or gangrene 06/17/2000 11/02/2014 ALCOH DEP [id number] 06/17/2000 POST-NASAL DRIP 12/22/1999 11/02/2014 CERVICAL DJD/DDD [...] as of this encounter (statuses as of 11/08/2023) Immunizations Name Administration Dates Next Due Pneumococcal [...] encounter Miscellaneous Notes * Telephone Encounter - Liza Aranda LPN - 10/20/2023 8:50 AM EDT Patient's daughter called back and is aware of information from Dr. Brewer and states she wouldlike the 1:20 appointment on Wednesday. Had scheduling add patient to appointment. * Telephone Encounter - Alexis Kwok MED AILEEN - 10/20/2023 8:44 AM EDT Attempted to leave message on daughters voicemail * Telephone Encounter - Silvino Brewer MD - 10/19/2023 10:03 PM EDT Looks like they are about 5 min away from the office. Are they specifically asking for home health nursing, or are they asking if I can check it? Could schedule as my 1:00 appt on or my 1:20on Wednesday. * Telephone Encounter - Liza Aranda LPN - 10/19/2023 11:16 AM EDT Can a referral for home health be placed for this patient? * Telephone Encounter - Oksana Brown OSA - 10/13/2023 8:13 AM EDT Daughter Noris calling in and had appt set up for Hay last night UC but he refused to go with her as starting to rain and he does not want to leave the house. Wanting to know if can have someone come to his home and look at his rt foot toe had thick nail there and he got hold of some scissors and cut it himself and it started to bleed so Noris did take care of that but would like to have someone come to the home to look at the toe please. Did soak toe in epsom salt then antiseptic cream to area and bandaged it and making him wear white colored socks. Please call back to daughter if anyone can look at this. Paola Hamm @ [phone] documented in this encounter Plan of Treatment Upcoming Encounters Date Type Department Care Team (Late st Contact Info) Description 01/04/2024 6:20 PM EDT Telemedicine [facility] [address] [phone] [facility]ino Brewer [facility] [address] [facility] [address] Health Maintenance Due Date Last Done Comments Alpha-1 Antitrypsin 1953 AAA Monitoring 05/15/2014 05/15/2013, 11/14, 12/12/2001 Zoster Vaccines (2 of 3) 06/09/2014 04/14/2014 DISCUSS TOBACCO CESSATION (REFER TO SMARTSET #5671) 07/18/2015 07/17/2014 (Discussed) Albumin/Creatinine Ratio 03/26/2018 017, 12/13/2015, 04/30/2014, Additional history exists DTaP,Tdap,and Td Vaccines (1 - Tdap) 07/07/2019 07/06/2019, 06/10/1999 CKD HGB USE SMARTSET 09288 10/15/202210/15, 10/15/2021, 04/06/2018, Additional history exists CKD PHOS USE SMARTSET 15849 10/15/2022 06/0 05/2021, 12/13/2018, 03/25/2017, Additional history exists Depression Monitoring 10/27/2022 10/27/2021 COVID-19 Vaccine ( season) 2023 Influenza Vaccine (FLU shot) (Season [...] Documents on File Type Date Recorded Patient Issuer Expl anation Advance Directives and Living Will 02/11/2021 ADVANCE DIRECTIVE / LIVING WILL Care Teams Caser Up Relationship Specialty Start Date End Date Silvino Brewer MD [address] [place] [address] PCP - General Family Medicine 08/29/18 documented as of this encounter
--- OUTSIDE RECORDS SUMMARY | 2024-02-14 09:15 | External Medical Summary | Summary of Care ---
Author Name Unknown Organization [facility] Address [address] [address] Phone [phone] Care Team Providers Care Floor Person Name Role Phone Silvino Brewer MD Primary Care Provider [phone]- [phone] Reason for Visit * Reason Comments Follow Up Pt was too groggy in the evenings, daughter d/c'd a few meds. Sore right big toe. Encounter Details Date Type Department Care Team (Latest Contact Info) Description 10/22/2023 1:20 PM EDT Office Visit [facility] [address] [place] [address] Silvino Brewer MD [address] [place] [address] Cellulitis of great toe, right*; Agitation; Fatigue, unspecified type; COPD, group B, by GOLD 2017 classification (HCC); ASCVD (arteriosclerotic cardiovascular disease) Allergies Active Allergy Reactions Criticality Noted Date [...] NECK PAIN 300 Capsule 3 3 Active Citalopram Hydrobromide 40 MG Oral Tablet (CeleXA)Indications :Anxiety state TAKE 1 TABLET BY MOUTH EVERY DAY 90 Tablet 2 3 Active Montelukast Sodium 10 MG Oral Tablet (Singulair) TAKE 1 TABLET BY MOUTH EVERY DAY 90 Tablet 2 3 Active HYDROcodone-Acetami nophen 5-325 MG Oral TabletIndications: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 60 Tablet 4 Active LORazepam 1 MG Oral Tablet (Ativan)Indications :Anxiety state TAKE 1 TAB IN AM, 1 AND 1/2 TABS AT LUNCH AND 1 TAB AT DINNER 105 Tablet 4 Active busPIRone HCl 10 MG Oral Tablet (Buspar)Indications :Agitation Take 1 Tablet by mouth in the morning and 1 Tablet before bedtime. Take for agitation as needed. 20 Tablet 4 Active ACETAMINOPHEN 500 MG PO TABSIndications:Juan kache,Spasm of muscle Two pills by mouth 3 times daily, as needed for pain 2 10/22/19 24 Discontinue d(Medicatio n List Clean Up) Anfvqo-Mxwacigte-Se aluron-MSM (GLUCOSAMINE CHONDROITIN JOINT) TABS Take by mouth. 9 10/22/19 24 Discontinue d(Medicatio n List Clean Up) Multiple Vitamins TABS Take by mouth. 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 Dissolve one heaping tablespoon in 8 ounces of water or juice. 1 Bottle 2 0 10/22/19 24 Discontinue d(Medicatio n List Clean Up) nicotine (NICODERM CQ) 21 MG/24HR Patch Place 1 Patch topically on the skin daily. On upper body/upper arm, change once a day for 6 weeks. 42 Patch 0 10/22/19 24 Discontinue d(Medicatio n List Clean Up) Benzonatate 100 MG Oral Capsule (Leigh Zepeda)Indications: Dry cough Take 1 Capsule by mouth 3 times a day as needed for Cough. 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 30 Tablet 3 10/22/19 24 Discontinue d(Medicatio n List Clean Up) busPIRone HCl 10 MG Oral Tablet (Buspar)Indications :Agitation Take 1 Tablet by mouth in the morning and 1 Tablet before bedtime. Take for agitation as needed. 20 Tablet 3 10/22/19 24 Discontinue d(Refill) Cephalexin 500 MG Oral Capsule (Keflex)Indications :Cellulitis of great toe, right Take 1 Capsule by mouth in the morning and 1 Capsule at noon and 1 Capsule before bedtime. Do all this for 10 days. 30 Capsule 4 11/01/19 24 Hospital, Clinic, or Other Facility Administered Medication [...] determined 01/31/2003 05/01/2009 Overview: Per Lipid Taxonomy. CHALKEMIION, LEFT 01/31/2003 10/01/2003 Urinary sys symptom NEC [...] obstruction or gangrene 06/17/2000 11/02/2014 ALCOH DEP [id number] 06/17/2000 POST-NASAL DRIP 12/22/1999 11/02/2014 CERVICAL DJD/DDD [...] Days Cigarettes 0.5 60 Smokeless Tobacco: Never Tobacco Cessation:Ready to Q uit: Not Asked; Counseling Given: Not Answered Alcohol Use Standard Drinks/Week Comments Yes 0 [...] Sign Reading Time Taken Comments Blood Pressure 112/56 10/22/2023 1:16 PM EDT Pulse 70 10/22/2023 1:16 PM EDT Temperature - - Respiratory Rate - - Oxygen Saturation 97% 10/22/2023 1:16 PM EDT Inhaled Oxygen Concentration - - Weight 80.5 kg (177 lb 6.4 oz) 10/22/2023 1:16 P M EDT Height - - Body Mass Index 26.97 10/27/2021 5:59 PM EDT documented in this encounter Progress Notes * Silvino Brewer MD - 11/08/2023 10:49 PM EDT Subjective: Hay Shelton is a 88 year old male here today for Chief Complaint Patient presents with Follow Up Pt was too groggy in the evenings, daughter d/c'd a few meds. Sore right big toe. Past Medical History: Diagnosis Date Anxiety state ASCVD (arteriosclerotic cardiovascular disease) COPD with emphysema (HCC) COPD, severe (HCC) Diaphragmatic hernia Dyslipidemia, goal LDL below 100 H. 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 Peterson. NONE 06/20/04 Hemmorhoids banded X2 in office. 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 MAY TAKE EXTRA CAP UP TO AN ADDITIONAL 2 TIMES A DAY NEEDED FOR HEADACHE AND NECK PAIN 300 Capsule 3 Citalopram Hydrobromide 40 MG Oral Tablet (CeleXA) TAKE 1 TABLET BY MOUTH EVERY DAY 90 Tablet 2 Montelukast Sodium 10 MG Oral Tablet (Singulair) TAKE 1 TABLET BY MOUTH EVERY DAY 90 Tablet 2 HYDROcodone-Acetaminophen 5-325 MG Oral Tablet Take 1 Tablet by mouth every 8 hours as needed for Pain, Severe. 60 Tablet 0 LORazepam 1 MG Oral Tablet (Ativan) TAKE 1 TAB IN AM, 1 AND 1/2 TABS AT LUNCH AND 1 TAB AT DINNER 105 Tablet 0 busPIRone HCl 10 MG Oral Tablet (Buspar) Take 1 Tablet by mouth in the morning and 1 Tablet before bedtime. Take for agitation as needed. 20 Tablet 0 hydrocortisone 1%-clotrimazole 1% 1:1 cream Apply topically to affected area 2 times a day. Aviva-rectal area 56 g 3 nitroglycerin (NITROSTAT) 0.4 MG SUBL one tab under tongue as needed for chest pain maximum 3 doses30 Tab 5 triamcinolone acetonide (ARISTOCORT) 0.1 % cream Apply topically to affected area 2 times a day. Toaffected area. (Patient not taking: Reported on 10/22/2023) 80 g 5 Current Facility-Administered Medications Medication Dose Route Frequency Provider Last Rate Last Admin albuterol sulfate (PROVENTIL) (2.5 MG/3ML) 0.083% inhalation solution 2.5 mg 2.5 mg Nebulizer Q4H PRN Marlin Lew MD 2.5 mg at 04/23/17 1207 Objective: BP 112/56 (BP Site: Left Arm, BP Position: Sitting, BP Cuff Size: Regular) | Pulse 70 | Wt 80.5 kg (177 lb 6.4 oz) | SpO2 97% | BMI 26.97 kg/m | BSA 1.97 m GEN: NAD HEENT: Benign NECK: Supple with no LAD, TM, JVD CHEST: CTA B CV: RRR ABD: Soft, NT/ND, No HSM, NABS EXT: No c,c,e Assessment and Plan: Cellulitis of great toe, right (Primary) - Cephalexin 500 MG Oral Capsule (Keflex); Take 1 Capsule by mouth in the morning and 1 Capsule at noon and 1 Capsule before bedtime. Do all this for 10 days. Agitation - busPIRone HCl 10 MG Oral Tablet (Buspar); Take 1 Tablet by mouth in the morning and 1 Tablet before bedtime. Take for agitation as needed. Fatigue, unspecified type COPD, group B, by GOLD 2017 classification (HCC) ASCVD (arteriosclerotic cardiovascular disease) 32 min with pt and chart review. Silvino Brewer MD documented in this encounter Plan of Treatment Upcoming Encounters Date Type Department Care Team (Late st Contact Info) Description 01/04/2024 6:20 PM EDT Telemedicine [facility] [address] [place] [address] Silvino Brewer MD [address] [place] [address] Health Maintenance Due Date Last Done Comments Alpha-1 Antitrypsin 1953 AAA Monitoring 05/15/2014 05/15/2013, 11/14, 12/12/2001 Zoster Vaccines (2 of 3) 06/09/2014 04/14/2014 DISCUSS TOBACCO CESSATION (REFER TO SMARTSET #3291) 07/18/2015 07/17/2014 (Discussed) Albumin/Creatinine Ratio 03/26/2018 017, 12/13/2015, 04/30/2014, Additional history exists DTaP,Tdap,and Td Vaccines (1 - Tdap) 07/07/2019 07/06/2019, 06/10/1999 CKD HGB USE SMARTSET 23965 10/15/202210/15, 10/15/2021, 04/06/2018, Additional history exists CKD PHOS USE SMARTSET 87324 10/15/2022 06/0 05/2021, 12/13/2018, 03/25/2017, Additional history [...] as of this encounter Visit Diagnoses Diagnosis Cellulitis of great toe, right- Primary Cellulitis and abscess of toe, unspecified Agitation Other and unspecified special symptom or syndrome, not elsewhere classified Fatigue, unspecified type COPD, group B, by GOLD 2017 classification (HCC) ASCVD (arteriosclerotic cardiovascular disease) Unspecified cardiovascular disease documented in this encounter Advance Directives Documents on File Type Date 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
--- OUTSIDE RECORDS SUMMARY | 2024-02-14 09:15 | External Medical Summary | Summary of Care ---
Author Name Unknown Organization [facility] Address [address] [place] [address] Phone [phone] Care Team Providers Care Vegetable Thinner Name Role Phone Maxine Kingsley MD Primary Care Provider [phone]- [phone] Reason for Referral * Medication Prior Authorization - Closed Specialty Diagnoses / Procedures Referred By Contac t Referred To Contact Diagnoses Anxiety state Maxine Kingsley MD [address] [place] [facility] [place] [address] Referral ID Status Reason Start Date Expiration Date Visits Re quested Visits Authorized [id number] Closed [phone] Reason for Visit * Reason Onset Date Comments Medication Refill 08/17/2023 Encounter Details Date Type Department Care Team (Late st Contact Info) Description 08/17/2023 Refill [facility] [address] [place] [facility] [place] [id number] Maxine Kingsley MD [address] [facility] [place] [address] Anxiety state Allergies Active Allergy Reactions Criticality Noted Date Comments Atorvastatin Muscle pain Medium 07/06/2019 Ivp Dye 04/22/1999 hives Pseudoephedrine 06/30/1999 hives Metoclopramide Hcl Neuro complications (Please comment) High 01/28/2009 Muscle twitching Sulfa Antibiotics 04/22/1999 rash,sob Tramadol Psych complications 07/14/2013 documented as of this encounter (statuses as of 08/18/2023) Medications Medication Sig Dispensed Refills Start Date End Date Status ACETAMINOPHEN 500 MG PO TABSIndications:Juan kache,Spasm of muscle Two pills by mouth 3 times daily, as needed for pain 0 04/18/2012 Active ASPIRIN EC 81 MG PO TBECIndications:ASC VD [...] 3 doses 30 Tab 5 08/18/2018 Active Klmbfn-Vbfpknnyt-Ef aluron-MSM (GLUCOSAMINE CHONDROITIN JOINT) TABS Take by mouth. 0 12/21/2018 Active Multiple Vitamins TABS Take by mouth. 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 Dissolve one heaping tablespoon in 8 ounces of water or juice. 1 Bottle 2 2019 Active triamcinolone acetonide (ARISTOCORT) 0.1 % creamIndications:De rmatitis Apply topically to affected area 2 times a day. To affected area. 80 g 5 07/20/2019 Active nicotine (NICODERM CQ) 21 MG/24HR Patch Place 1 Patch topically on the skin daily. On upper body/upper arm, change once a day for 6 weeks. 42 Patch 0 01/25/2020 Active Additional Information Patient not taking.Reported on 10/27/2021 Benzonatate 100 MG Oral Capsule (Teshector Zepeda)Indications: Dry cough Take 1 Capsule by mouth 3 times a day as needed for Cough. 30 Capsule 1 04/02/2021 Active Gabapentin 100 MG Oral Capsule (Neurontin)Indicati ons:Restless legs syndrome,Sleep disturbance TAKE 1 CAPSULE BY MOUTH 3 TIMES A DAY. 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 30 Tablet 0 10/06/2022 Active busPIRone HCl 10 MG Oral Tablet (Buspar)Indications :Agitation Take 1 Tablet by mouth in the morning and 1 Tablet before bedtime. Take for agitation as needed. 20 Tablet 0 12/16/2022 Active Citalopram Hydrobromide 40 MG Oral Tablet [...] needed for Pain, Severe. 60 Tablet 0 06/23/2023 Active LORazepam 1 MG Oral Tablet (Ativan)Indications :Anxiety state TAKE 1 TAB IN AM, 1 AND 1/2 TABS AT LUNCH AND 1 TAB AT DINNER 105 Tablet 0 08/18/2023 Active LORazepam 1 MG Oral Tablet (Ativan)Indications :Anxiety state TAKE 1 TAB IN AM, 1 AND 1/2 TABS AT LUNCH AND 1 TAB AT DINNER 105 Tablet 0 06/23/2023 08/17/19 24 Discontinu ed(Refill) Hospital, Clinic, or Other Facility Administered Medication Ordered Dose Route Frequency Start Date End Date Status albuterol sulfate (PROVENTIL) (2.5 MG/3ML) 0.083% inhalation solution 2.5 mgIndications:COPD, moderate (HCC) 2.5 mg NEBULIZER Q4H PRN 04/16/2017 Active documented as of this encounter (statuses as of 08/18/2023) Active Problems Problem Noted Date Diagnosed Date [...] as of this encounter (statuses as of 08/18/2023) Resolved Problems Problem Noted Date Diagnosed Date [...] obstruction or gangrene 06/17/2000 11/02/2014 ALCOH DEP [id number] 06/17/2000 POST-NASAL DRIP 12/22/1999 11/02/2014 CERVICAL DJD/DDD [...] as of this encounter (statuses as of 08/18/2023) Immunizations Name Administration Dates Next Due Pneumococcal [...] money to get more. Never true 10/27/2021 Sex and Gender Information Value Date Recorded Sex Assigned at Male 08/18/2018 7:53 AM EDT Gender Identity Male 08/18/2018 7:53 AM EDT Sexual Orientation Straight 08/18/2018 7: 53 AM EDT Job Start Date Occupation Industry Not on file Not on file Not on file documented as of this encounter Miscellaneous Notes * Telephone Encounter - Maxine Kingsley MD - 08/18/2023 1:22 PM EDTSigned Prescriptions: Disp Refills LORazepam 1 MG Oral Tablet (Ativan) 105 Ta*0 Sig: TAKE 1 TAB IN AM, 1 AND 1/2 TABS AT LUNCH AND 1 TAB AT DINNERAuthorizing Provider: MAXINE KINGSLEY * Telephone Encounter - Teresa Rock [facility] - 08/18/2023 10:24 AM EDTPending Prescriptions: Disp Refills LORazepam 1 MG Oral Tablet (Ativan) 105 Ta*0 Sig: TAKE 1 TAB IN AM, 1 AND 1/2 TABS AT LUNCH AND 1 TAB AT DINNER * Telephone Encounter - Teresa Rock [facility] - 08/18/2023 10:24 AM EDT I have reviewed the patients controlled substance dispensing history in the Prescription Drug Monitoring Program in compliance with the [facility] regulations before prescribing a controlled substance. PDMP checked on 08/18/2023. Pending Prescriptions: Disp Refills LORazepam 1 MG Oral Tablet (Ativan) 105 Ta*0 Sig: TAKE 1 TAB IN AM, 1 AND 1/2 TABS AT LUNCH AND 1 TAB AT DINNER Last Visit: 10/27/2021 (in office), 09/01/2022 (telemedicine) Next Visit: 01/04/2024 Date medication was last filled: 06/23/23 Date medication is due for refill: 07/22/23 Pharmacy: [id number] [address] [place] [address] Is this request for a controlled substance? Yes and Urine Drug Screen Not completed Toxicology results: No results found for this or any previous visit. Please approve if appropriate. Thanks, Teresa Rock Clinical Pharmacist [facility] ([facility]) (Formerly Telepharmacy) [phone] 08/18/2023, 10:24 AM * Telephone Encounter - Xiao Talbot orthotic assistant - 08/17/2023 10:27 AM EDT VM received for refill Did you pend patient's preferred pharmacy and medication before forwarding?yes Pharmacy: [id number] [address] [place] [address] Pending Prescriptions: Disp Refills LORazepam 1 MG Oral Tablet (Ativan) 105 Ta*0 Sig: TAKE 1 TAB IN AM, 1 AND 1/2 TABS AT LUNCH AND 1 TAB AT DINNER Last Visit: 10/27/2021 (in office), 09/01/2022 (telemedicine) Next Visit: 01/04/2024 If no future appointments scheduled, and last appointment is greater than a year ago, please schedule patient for a follow-up appointment Last date the medication was ordered: 06/23/23 Is this request for a controlled substance?Yes, What was the last refill date 06/23/23 w/ quantity 105 and dosage 1 tab in am and dinner and 1 1/2 at lunch and Urine Drug Screen Not completed Urine Drug Screen:No results found for this or any previous visit. Patient Phone Numbers Labs: Lab Results Component Value Date/Time CREAT [...] Info) Description 01/04/2024 6:20 PM EDT Telemedicine [facility] [address] [facility] [place] [address] Maxine Kingsley MD [address] [facility] [place] [address] Health Maintenance Due Date Last Done Comments Alpha-1 Antitrypsin 1953 O2 ASSESSMENT COMPLETED IN PAST YEAR FOR COPD 1953 AAA Monitoring 05/15/2014 05/15/2013, 11/14, 12/12/2001 Zoster Vaccines (2 of 3) 06/09/2014 04/14/2014 DISCUSS TOBACCO CESSATION (REFER TO SMARTSET #3291) 07/18/2015 07/17/2014 (Discussed) Albumin/Creatinine Ratio 03/26/2018 017, 12/13/2015, 04/30/2014, Additional history exists DTaP,Tdap,and Td Vaccines (1 - Tdap) 07/07/2019 07/06/2019, 06/10/1999 CKD HGB USE SMARTSET 26190 10/15/202210/15, 10/15/2021, 04/06/2018, Additional history exists CKD PHOS USE SMARTSET 95873 10/15/2022 06/0 05/2021, 12/13/2018, 03/25/2017, Additional history exists Depression Screening 10/27/2022 10/27/2021, 11/02/2014 (Discussed) COVID-19 Vaccine ( season) 2023 Influenza Vaccine (FLU shot) (Season Ended) 2024 01/25/2020, 04/06/2018, 03/25/2017, Additional history exists Pneumococcal Vaccine: 65+ Years Completed 05/23/2015, 03/22/2007, [...] Documents on File Type Date 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 [place] [address] PCP - General Family Medicine 08/29/18 documented as of this encounter
--- OUTSIDE RECORDS SUMMARY | 2024-02-14 09:15 | External Medical Summary | Summary of Care ---
Author Name Unknown Organization [facility] Address [address] [place] [address] Phone [phone] Care Team Providers Care Sales Specialist Name Role Phone Maxine Kingsley MD Primary Care Provider [phone]- [phone] Reason for Referral * Medication Prior Authorization - Closed Specialty Diagnoses / Procedures Referred By Juju t Referred To Contact Diagnoses Anxiety state Maxine Kingsley MD [address] [place] [address] Referral ID Status Reason Start Date Expiration Date Visits Re quested Visits Authorized [id number] Closed 999 999 * Medication Prior Authorization - Closed Specialty Diagnoses / Procedures Referred By Juju t Referred To Contact Diagnoses Spinal stenosis of lumbar region with neurogenic claudication Maxine Kingsley MD [address] [place] [address] Referral ID Status Reason Start Date Expiration Date Visits Re quested Visits Authorized [id number] Closed 999 999 Reason for Visit * Reason Onset Date Comments Medication Refill 09/18/2023 Encounter Details Date Type Department Care Team (Late st Contact Info) Description 09/18/2023 Refill [facility] [address] [place] [id number] Maxine Kingsley MD [address] [place] [address] Spinal stenosis of lumbar region with neurogenic claudication; Anxiety state Allergies Active Allergy Reactions Criticality Noted Date Comments Atorvastatin Muscle pain Medium 07/06/2019 Ivp Dye 04/22/1999 hives Pseudoephedrine 06/30/1999 hives Metoclopramide Hcl Neuro complications (Please comment) High 01/28/2009 Muscle twitching Sulfa Antibiotics 04/22/1999 rash,sob Tramadol Psych complications 07/14/2013 documented as of this encounter (statuses as of 09/20/2023) Medications Medication Sig Dispensed Refills Start Date [...] 3 doses 30 Tab 5 08/18/2018 Active Qfikqp-Fufwrwshj-It aluron-MSM (GLUCOSAMINE CHONDROITIN JOINT) TABS Take by [...] needed for Pain, Severe. 60 Tablet 0 09/20/2023 Active LORazepam 1 MG Oral Tablet (Ativan)Indications :Anxiety state TAKE 1 TAB IN AM, 1 AND 1/2 TABS AT LUNCH AND 1 TAB AT DINNER 105 Tablet 0 09/20/2023 Active HYDROcodone-Acetami nophen 5-325 MG Oral TabletIndications: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 60 Tablet 0 06/23/2023 09/18/19 24 Discontinu ed(Refill) LORazepam 1 MG Oral Tablet (Ativan)Indications :Anxiety state TAKE 1 TAB IN AM, 1 AND 1/2 TABS AT LUNCH AND 1 TAB AT DINNER 105 Tablet 0 08/18/2023 09/18/19 Discontinu ed(Refill) Hospital, Clinic, or Other Facility Administered Medication Ordered Dose Route Frequency Start Date End Date Status albuterol sulfate (PROVENTIL) (2.5 MG/3ML) 0.083% inhalation solution 2.5 mgIndications:COPD, moderate (HCC) 2.5 mg NEBULIZER Q4H PRN 04/16/2017 Active documented as of this encounter (statuses as of 09/20/2023) Active Problems Problem Noted Date Diagnosed Date [...] as of this encounter (statuses as of 09/20/2023) Resolved Problems Problem Noted Date Diagnosed Date [...] determined 01/31/2003 05/01/2009 Overview: Per Lipid Taxonomy. DIAZION, LEFT 01/31/2003 10/01/2003 Urinary sys symptom NEC [...] obstruction or gangrene 06/17/2000 11/02/2014 ALCOH DEP [id number] 06/17/2000 POST-NASAL DRIP 12/22/1999 11/02/2014 CERVICAL DJD/DDD [...] as of this encounter (statuses as of 09/20/2023) Immunizations Name Administration Dates Next Due Pneumococcal [...] Telephone Encounter - Maxine Kingsley MD - 09/20/2023 4:04 PM EDTSigned Prescriptions: Disp Refills HYDROcodone-Acetaminophen 5-325 MG Oral Ta*60 Tab*0 Sig: Take 1 Tablet by mouth every 8 hours as needed for Pain, Severe.Authorizing Provider: MAXINE KINGSLEY LORazepam 1 MG Oral Tablet (Ativan) 105 Ta*0 Sig: TAKE 1 TAB IN AM, 1 AND 1/2 TABS AT LUNCH AND 1 TABAT DINNERAuthorizing Provider: MAXINE KINGSLEY * Telephone Encounter - Elicia Pérez [facility] - 09/20/2023 10:55 AM EDTPending Prescriptions: Disp Refills HYDROcodone-Acetaminophen 5-325 MG Oral Ta*60 Tab*0 Sig: Take 1 Tablet by mouth every 8 hours as needed for Pain, Severe. LORazepam 1 MG Oral Tablet (Ativan) 105 Ta*0 Sig: TAKE 1 TAB IN AM, 1 AND 1/2 TABS AT LUNCH AND 1 TAB AT DINNER * Telephone Encounter - Elicia Pérez [facility] - 09/20/2023 10:55 AM EDT I have reviewed the patients controlled substance dispensing history in the Prescription Drug Monitoring Program in compliance with the [facility] regulations before prescribing a controlled substance. PDMP checked on 09/20/2023. Pending Prescriptions: Disp Refills HYDROcodone-Acetaminophen 5-325 MG [...] Visit: 01/04/2024 Date medication was last filled: 06/23, 08/17 (respectively) Date medication is due for refill: 07/12, 09/15 Pharmacy: [id number] [address] [place] [address] Is this request for a controlled substance? Yes and Urine Drug Screen Not completed Toxicology results: No results found for this or any previous visit. Please approve if appropriate. Thank you, Elicia Pérez, PharmD Clinical Pharmacist [facility] [phone] 09/20/2023, 10:55 AM * Telephone Encounter - Brigid Anthony CPhT - 09/18/2023 8:26 AM EDT Did you pend patient's preferred pharmacy and medication before forwarding?yes Pharmacy: [id number] [address] [place] [address] Pending Prescriptions: Disp Refills HYDROcodone-Acetaminophen 5-325 MG [...] appointment Last date the medication was ordered: [id number] Is this request for a controlled substance?Yes, What was the last refill date [id number] w/ quantity 60 105 and dosage 5/325 1mg and Urine Drug Screen Not completed Urine [...] Info) Description 01/04/2024 6:20 PM EDT Telemedicine [facility] [address] [place] [facility] [place] [address] Maxine Kingsley MD [address], [place] [id number] Health Maintenance Due Date Last Done Comments [...] 07/07/2019 07/06/2019, 06/10/1999 CKD HGB USE SMARTSET 01193 10/15/202210/15, 10/15/2021, 04/06/2018, Additional history exists CKD PHOS USE SMARTSET 30880 10/15/2022 06/0 05/2021, 12/13/2018, 03/25/2017, Additional history exists COVID-19 Vaccine ( season) 2023 Influenza Vaccine [...] Documents on File Type Date Recorded 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
--- OUTSIDE RECORDS SUMMARY | 2024-02-14 09:15 | External Medical Summary | Summary of Care ---
Author Name Unknown Organization [facility] Address [address] [place] [address] Phone [phone] Care Team Providers Care Master Rigger Name Role Phone Silvino Brewer MD Primary Care Provider [phone]- [phone] Encounter Details Date Type Department Care Team (Late st Contact Info) Description 11/08/2023 Orders Only Outcomes Research Department [address] [place] [address] Sully Sutton CHRA [facility] Other*[id number] Allergies Active Allergy Reactions Criticality Noted Date [...] EVERY DAY 90 Tablet 2 02/04/2023 Active HYDROcodone-Acetamin ophen 5-325 MG Oral TabletIndications:Sp inal stenosis of lumbar region with neurogenic claudication Take 1 Tablet by mouth every 8 hours as needed for Pain, Severe. 60 Tablet 09/20/2023 Active LORazepam 1 MG Oral Tablet (Ativan)Indications: Anxiety state TAKE 1 TAB IN AM, 1 AND 1/2 TABS AT LUNCH AND 1 TAB AT DINNER 105 Tablet 09/20/2023 Active busPIRone HCl 10 MG Oral Tablet (Buspar)Indications: Agitation Take 1 Tablet by mouth in the morning and 1 Tablet before bedtime. Take for agitation as needed. 20 Tablet 10/22/2023 Active Hospital, Clinic, or Other Facility Administered [...] obstruction or gangrene 06/17/2000 11/02/2014 ALCOH DEP [id number] 06/17/2000 POST-NASAL DRIP 12/22/1999 11/02/2014 CERVICAL DJD/DDD [...] on file documented as of this encounter Plan of Treatment Upcoming Encounters Date Type Department Care Team (Late st Contact Info) Description 01/04/2024 6:20 PM EDT Telemedicine [facility] [address] [place] [address] Silvino Brewer MD [address] [place] [facility] [place] [address] Scheduled Orders Name Type Priority Associated Diagnoses Orde r Schedule MYCODE SUBSEQUENT ADULT Lab Routine [facility] Research Other*[id number] Every 6 Months for 2 Occurrences starting 11/08/2023 until 11/27/2024 Health Maintenance Due Date Last Done Comments Alpha-1 Antitrypsin 1953 AAA Monitoring 05/15/2014 05/15/2013, 11/14, 12/12/2001 Zoster Vaccines (2 of 3) 06/09/2014 04/14/2014 DISCUSS TOBACCO CESSATION (REFER TO SMARTSET #3291) 07/18/2015 07/17/2014 (Discussed) Albumin/Creatinine Ratio 03/26/2018 017, 12/13/2015, 04/30/2014, Additional history exists DTaP,Tdap,and Td Vaccines (1 - Tdap) 07/07/2019 07/06/2019, 06/10/1999 CKD HGB USE SMARTSET 20752 10/15/202210/15, 10/15/2021, 04/06/2018, Additional history exists CKD PHOS USE SMARTSET 92034 10/15/2022 06/0 05/2021, 12/13/2018, 03/25/2017, Additional history [...] as of this encounter Visit Diagnoses Diagnosis [facility] Other*[id number] documented in this encounter Advance Directives Documents on File Type Date Recorded 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
[2024-02-14 09:21] LABS: Albumin Globulin Ratio 1.3 (0.9-2); Albumin Level 3.6 gm/dl (3.4-5.0); BUN Creatinine Ratio 10.2 (10-20); Bilirubin,Total 1.5 mg/dl (0.2-1.0); Calcium 8.9 mg/dl (8.6-10.3); Creatinine Clr Calc Pharmacy 37.7 ml/min; Est GFR (African American) 52.6 ml/min; Est GFR (Non-African American) 45.4 ml/min; Globulin 2.7 gm/dl (2.5-4.0); Potassium 4.2 mmol/L (3.5-5.1); Total Protein 6.3 gm/dl (6.0-8.3)
--- NOTE | 2024-02-14 09:25 | CT Scan Report ---
CT head/brain wo con CLINICAL HISTORY: 88 years-old Male with confusion; fall from standing. Acutely altered mental statu s. Acute head trauma status post fall TECHNIQUE: Multiple axial CT images of the head were obtained without contrast. A dose lowering tech nique was utilized adhering to the principles of ALARA. CT DOSE: 1016.05 mGy.cm COMPARISON: None. FINDINGS: No acute intracranial hemorrhage, midline shift, intracranial mass, hydrocephalus, territorial ischem ia or abnormal extra-axial collection. Involutional changes with chronic microvascular ischemic disea se. The study is motion degraded and also limited secondary to positioning. Ex vacuo ventriculomegaly . The calvarium is intact. The paranasal sinuses, mastoid air cells, and middle ear cavities are clear . IMPRESSION: 1. Motion degraded exam without acute intracranial abnormality identified. 2. Involutional changes with chronic microvascular ischemic disease. ACT 112: Negative or not required by law. The above report was generated using voice recognition software. It may contain grammatical, syntax o r spelling errors. Electronically signed by: Larry Gan M.D. 02/14/2024 9:24 AM
[2024-02-14 09:26] LABS: Appearance Urine Clear (Clear); Bacteria Urine Automated None Seen (None Seen); Bilirubin Urine Negative (Negative); Blood Urine 2+ (Negative); Cast Urine Automated 0-2 /lpf (0-2); Color Urine Yellow; Epithelial Cell Urine Auto 0-2 /hpf (0-2); Glucose Urine UA Negative (Negative); Ketones Urine Trace (Negative); Leukocyte Esterase Urine Negative (Negative); Nitrite Urine Negative (Negative); Protein Urine 1+ (Negative); RBC Urine Automated >20 /hpf (0-2); Specific Gravity Urine 1.022 (1.000-1.030); Urobilinogen Urine Negative (Negative); WBC Urine Automated 0-5 /hpf (0-5)
[2024-02-14 09:29] LABS: Troponin I High Sensitivity 23.9 pg/ml (0-20)
[2024-02-14 09:31] LABS: Partial Thromboplastin Ratio 0.9; Partial Thromboplastin Time 25 Seconds (21-31); Prothrombin Time 10.8 Seconds (9.0-12.0)
--- NOTE | 2024-02-14 09:50 | XRay Report ---
XR chest 1V portable CLINICAL HISTORY: altered mental status TECHNIQUE: Single frontal radiograph of the chest was obtained. Comparison: Comparison is made to chest radiograph 12/27/2019 FINDINGS: No lines and tubes are seen. There is prominence of the right mediastinum. Aortic calcification is se en. The lungs are clear. No evidence of pleural effusion or pneumothorax. Incidental note is made of a skin fold on the left. IMPRESSION: Prominence of the right mediastinum is nonspecific, may be secondary to patient rotation however lymp hadenopathy or severe pulmonary hypertension may appear similarly. If there is clinical concern CT ch est can be performed. ACT 112: Negative or not required by law. Electronically signed by: Denilson Dawson M.D. 02/14/2024 9:49 AM
[2024-02-14 10:03] LABS: Adenovirus PCR Not Detected (NotDetected); Bordetella parapertussis PCR Not Detected (NotDetected); Bordetella pertussis PCR Not Detected (NotDetected); Chlamydia pneumoniae PCR Not Detected (NotDetected); Coronavirus 229E PCR Not Detected (NotDetected); Coronavirus CoV-2 (COVID19)PCR Not Detected (NotDetected); Coronavirus HKU1 PCR Not Detected (NotDetected); Coronavirus NL63 PCR Not Detected (NotDetected); Coronavirus OC43PCR Not Detected (NotDetected); Human Metapneumovirus PCR Not Detected (NotDetected); Influenza A PCR Not Detected (NotDetected); Influenza B PCR Not Detected (NotDetected); Mycoplasma pneumoniae PCR Not Detected (NotDetected); Parainfluenza Virus 1 PCR Not Detected (NotDetected); Parainfluenza Virus 2 PCR Not Detected (NotDetected); Parainfluenza Virus 3 PCR Not Detected (NotDetected); Parainfluenza Virus 4 PCR Not Detected (NotDetected); Respiratory Syncytial VirusPCR Not Detected (NotDetected); Rhinovirus/Enterovirus PCR Not Detected (NotDetected)
[2024-02-14] MEDS ORDERED: ALBUT/IPRATROP 3MG/0.5MG NEB 3 ML VIAL NEB PRN (12:15)
--- NOTE | 2024-02-14 12:35 | History & Physical Report ---
Date of Service February 14, 2024 History of Present Illness Chief Complaint: AMS Hx from ED and his daughter. He is not a reliable historian Primary Care Provider: Silvino Brewer MD Hay Shelton is an 88 y/o male who loves with his son and daughter and with a PMHX of tobacco abuse disorder(3PPD), ETOH abuse(heavy drinker in past but 0-1 beers a day for past several years), anxiety, mild dementia, IBS, hx GI bleed, hx SBO, OA, second degree Type II AV block, BPH, CKD3a, AAA and hx of DVT. The pt presents via EMS for AMS. Daughter is present and states this started yesterday. He has dementia but is independent and usually oriented x 2. He was incontinent of urine x 1 which is unusual. He fell of his glider swing yesterday. No known head trauma or LOC per daughter. He finished an antibiotic(Keflex) two weeks ago for left big toe paronychia. In the ED CT scan of the head is negative for bleed. He was bradycardiac in the 30"s. He is not septic. CXR is clear. UA shows 2+ blood but no leukocytes. WBC is 9.43. Lactate is 1.1 Troponin is 23.5. Pt is referred for admission and further W/U Allergies Allergy/AdvReac Type Severity Reaction Status Date / Time Iodinated Contrast Media Allergy Unknown HIVES Verified 07/27/19 19:34 pseudoephedrine Allergy Unknown UNSURE OF Verified 07/27/19 19:34 RX? Sulfa (Sulfonamide Allergy Unknown DOES NOT Verified 07/27/19 19:34 Antibiotics) KNOW RX metoclopramide [From Reglan] AdvReac Severe MUSCLE Verified 07/27/19 19:33 TWITCHING atorvastatin AdvReac Intermediate Muscle Pain Verified 07/27/19 19:33 tramadol AdvReac psyche Verified 07/27/19 19:34 complications Home Medications Medication Instructions Recorded Confirmed Type acetaminophen 500 mg tablet 1,000 mg PO TID PRN Pain 05/20/19 07/27/19 History (Tylenol Extra Strength) albuterol sulfate 2.5 mg/3 mL 2.5 mg inhalation Q4 PRN Shortness 05/20/19 07/27/19 History (0.083 %) solution for nebulization Of Breath Or Wheezing aspirin 81 mg tablet,delayed 81 mg PO DAILY 05/20/19 07/27/19 History release (Aspir-) betamethasone, augmented 0.05 % 1 applic topical BID 05/20/19 07/27/19 History topical cream diclofenac sodium 1 % topical gel 4 g topical UD 05/20/19 07/27/19 History glucosamine 375 rh-ievufytrw-hwm 1 tab PO UD 05/20/19 07/27/19 History no1 500 mg-C 15 mg-lamar 0.5 mg tablet (Uoiwtikibon-Msghomtzbdg-LLJ Complex) lorazepam 1 mg tablet (Ativan) 1 mg PO UD 05/20/19 07/27/19 History multivitamin 1 tab PO DAILY 05/20/19 07/27/19 History nitroglycerin 0.4 mg sublingual 0.4 mg sublingual UD PRN Chest Pain 05/20/19 07/27/19 History tablet sennosides 15 mg tablet (Ex-Lax 15 mg PO HS 05/20/19 07/27/19 History (sennosides)) telmisartan 40 mg tablet 20 mg PO DAILY 05/20/19 07/27/19 History triamcinolone acetonide 0.5 % 1 applic topical BID PRN AFFECTED 05/20/19 07/27/19 History topical cream AREA ON HANDS citalopram 40 mg tablet 40 mg PO DAILY 30 days #30 tabs 05/30/19 07/27/19 Rx hydrocodone 5 mg-acetaminophen 325 1 tab PO Q8H PRN pain #20 tabs 05/30/19 07/27/19 Rx mg tablet ropinirole 0.25 mg tablet 0.25 mg PO HS 30 days #30 tabs 05/30/19 07/27/19 Rx gabapentin 100 mg capsule 100 mg PO TID 07/27/19 07/27/19 History polyethylene glycol 3350 17 gram 17 g PO DAILY PRN Constipation 07/27/19 07/27/19 History oral powder packet (Miralax) folic acid 1 mg tablet 1 mg PO QAM #30 tabs 07/29/19 Rx nicotine 21 mg/24 hr daily 21 mg transdermal QAM #14 ea 07/29/19 Rx transdermal patch (Nicoderm CQ) thiamine HCl (vitamin B1) 100 mg 100 mg PO QAM #30 tabs 07/29/19 Rx tablet (Vitamin B-1) buspirone 10 mg tablet 10 mg PO BID PRN Agitation 02/14/24 History montelukast 10 mg tablet 10 mg PO DAILY 02/14/24 History Past Med/Surg History Problem List (Updated 02/14/24 @ 11:33 by Teresa Marinelli MD) Elevated brain natriuretic peptide (BNP) level (Acute) Non-ST elevation SC (NSTEMI) (Acute) AMS (altered mental status) (Acute) CKD (chronic kidney disease), stage III CAD (coronary artery disease) Anxiety Smoker ETOH abuse DVT prophylaxis Elevated lipase Chest pain (Acute) Acute pancreatitis (Acute) Pneumonia (Acute) Lumbar spondylosis (Chronic) Intractable low back pain (Chronic) Lumbar stenosis (Chronic) Small bowel obstruction (Acute) Gastritis (Acute) GI bleed (Acute) Abdominal pain (Acute) Epigastric abdominal pain (Acute) Medical History (Updated 02/14/24 @ 11:33 by Teresa Marinelli MD) Spinal stenosis Arthritis AAA (abdominal aortic aneurysm) Surgical History (Updated 06/05/19 @ 00:03 by Rosio Montenegro) History of abdominal aortic aneurysm (AAA) repair Family History Other Family history non-contributory Social History Smoking Status: Unknown if ever smoked Cigarettes Per Day: 5-6; Hx Alcohol Use: Yes Alcohol type: beer and hard liquor Hx Substance Use: No Preferred Language: [place] Communication Ability: Impaired 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 Beliefs That Will Affect Care: None marital status: Current Living Situation: Spouse How many Children do You have: 2 Feels Safe at Home: Yes Assistive Devices: None Results & Data Results & Data Vital Signs (Past 12 Hours) Vital Signs Temp Pulse Pulse Resp BP BP Pulse Ox 02/14/24 12:05 43 L 19 149/61 H 98 02/14/24 11:03 43 L 18 157/58 H 98 02/14/24 09:18 34 L 02/14/24 08:56 54 L 16 94 02/14/24 08:39 54 L 02/14/24 08:08 36.2 C L 54 L 16 142/73 H 94 O2 Del Method 02/14/24 12:05 Room Air 02/14/24 11:03 Room Air 02/14/24 09:18 02/14/24 08:56 Room Air 02/14/24 08:39 02/14/24 08:08 Room Air Code Status & VTE Plan VTE Prophylaxis Plan VTE Prophylaxis will be ordered: Yes
--- NOTE | 2024-02-14 12:48 | History & Physical Report ---
Date of Service February 14, 2024 Assessment & Plan (1) AMS (altered mental status): Plan: Check UC CM consult S/P fall at home, possible head trauma (2) CKD (chronic kidney disease), stage III: Plan: Avoid nephrotoxic agents Trend labs (3) CAD (coronary artery disease): Plan: Continue ASA (4) Anxiety: Plan: Continue lorazepam 3 times daily as at home, daughter said he gets angry if he does not get this (5) Smoker: Plan: Nicotine patch (6) Dementia: Plan: Redirect as needed (7) Fall: Plan: PT and OT consults (8) Bradycardia: Plan: Continuous monitoring Cardiology consult EKG Trend troponin History of Present Illness Chief Complaint: AMS HX from Daughter and ED. Pt is not a reliable historian Primary Care Provider: Silvino Brewer MD Hay Shelton is an 88 y/o male who loves with his son and daughter and with a PMHX of tobacco abuse disorder(3PPD), ETOH abuse(heavy drinker in past but 0-1 beers a day for past several years), anxiety, mild dementia, IBS, hx GI bleed, hx SBO, OA, second degree Type II AV block, BPH, CKD3a, AAA and hx of DVT. The pt presents via EMS for AMS. Daughter is present and states this started yesterday. He has dementia but is independent and usually oriented x 2. He was incontinent of urine x 1 which is unusual. He fell off his glider swing yesterday. No known head trauma or LOC per daughter. He finished an antibiotic(Keflex) two weeks ago for left big toe paronychia. In the ED CT scan of the head is negative for bleed. He was bradycardiac in the 30"s. He is not septic. CXR is clear. UA shows 2+ blood but no leukocytes. WBC is 9.43. Lactate is 1.1 Troponin is 23.5. Pt is referred for admission and further W/U Allergies Allergy/AdvReac Type Severity Reaction Status Date / Time Iodinated Contrast Media Allergy Unknown HIVES Verified 07/27/19 19:34 pseudoephedrine Allergy Unknown UNSURE OF Verified 07/27/19 19:34 RX? Sulfa (Sulfonamide Allergy Unknown DOES NOT Verified 07/27/19 19:34 Antibiotics) KNOW RX metoclopramide [From Reglan] AdvReac Severe MUSCLE Verified 07/27/19 19:33 TWITCHING atorvastatin AdvReac Intermediate Muscle Pain Verified 07/27/19 19:33 tramadol AdvReac psyche Verified 07/27/19 19:34 complications Home Medications Medication Instructions Recorded Confirmed Type acetaminophen 500 mg tablet 1,000 mg PO TID PRN Pain 05/20/19 07/27/19 History (Tylenol Extra Strength) albuterol sulfate 2.5 mg/3 mL 2.5 mg inhalation Q4 PRN Shortness 05/20/19 07/27/19 History (0.083 %) solution for nebulization Of Breath Or Wheezing aspirin 81 mg tablet,delayed 81 mg PO DAILY 05/20/19 07/27/19 History release (Aspir-) betamethasone, augmented 0.05 % 1 applic topical BID 05/20/19 07/27/19 History topical cream diclofenac sodium 1 % topical gel 4 g topical UD 05/20/19 07/27/19 History glucosamine 375 [id number] 1 tab PO UD 05/20/19 07/27/19 History no1 500 mg-C 15 mg-lamar 0.5 mg tablet (Kkdhbgftabb-Uduxsfebzxr-JQJ Complex) lorazepam 1 mg tablet (Ativan) 1 mg PO UD 05/20/19 07/27/19 History multivitamin 1 tab PO DAILY 05/20/19 07/27/19 History nitroglycerin 0.4 mg sublingual 0.4 mg sublingual UD PRN Chest Pain 05/20/19 07/27/19 History tablet sennosides 15 mg tablet (Ex-Lax 15 mg PO HS 05/20/19 07/27/19 History (sennosides)) telmisartan 40 mg tablet 20 mg PO DAILY 05/20/19 07/27/19 History triamcinolone acetonide 0.5 % 1 applic topical BID PRN AFFECTED 05/20/19 07/27/19 History topical cream AREA ON HANDS citalopram 40 mg tablet 40 mg PO DAILY 30 days #30 tabs 05/30/19 07/27/19 Rx hydrocodone 5 mg-acetaminophen 325 1 tab PO Q8H PRN pain #20 tabs 05/30/19 07/27/19 Rx mg tablet ropinirole 0.25 mg tablet 0.25 mg PO HS 30 days #30 tabs 05/30/19 07/27/19 Rx gabapentin 100 mg capsule 100 mg PO TID 07/27/19 07/27/19 History polyethylene glycol 3350 17 gram 17 g PO DAILY PRN Constipation 07/27/19 07/27/19 History oral powder packet (Miralax) folic acid 1 mg tablet 1 mg PO QAM #30 tabs 07/29/19 Rx nicotine 21 mg/24 hr daily 21 mg transdermal QAM #14 ea 07/29/19 Rx transdermal patch (Nicoderm CQ) thiamine HCl (vitamin B1) 100 mg 100 mg PO QAM #30 tabs 07/29/19 Rx tablet (Vitamin B-1) buspirone 10 mg tablet 10 mg PO BID PRN Agitation 02/14/24 History montelukast 10 mg tablet 10 mg PO DAILY 02/14/24 History Past Med/Surg History Problem List (Updated 02/14/24 @ 12:44 by Guille Ortiz DO) Bradycardia Fall Dementia Elevated brain natriuretic peptide (BNP) level (Acute) Non-ST elevation OR (NSTEMI) (Acute) AMS (altered mental status) (Acute) CKD (chronic kidney disease), stage III CAD (coronary artery disease) Anxiety Smoker ETOH abuse DVT prophylaxis Elevated lipase Chest pain (Acute) Acute pancreatitis (Acute) Pneumonia (Acute) Lumbar spondylosis (Chronic) Intractable low back pain (Chronic) Lumbar stenosis (Chronic) Small bowel obstruction (Acute) Gastritis (Acute) GI bleed (Acute) Abdominal pain (Acute) Epigastric abdominal pain (Acute) Medical History (Updated 02/14/24 @ 12:44 by Guille Ortiz DO) Spinal stenosis Arthritis AAA (abdominal aortic aneurysm) Surgical History (Updated 06/05/19 @ 00:03 by Rosio Montenegro) History of abdominal aortic aneurysm (AAA) repair Family History Other Family history non-contributory Social History Smoking Status: Unknown if ever smoked Cigarettes Per Day: 5-6; Hx Alcohol Use: Yes Alcohol type: beer and hard liquor Hx Substance Use: No Preferred Language: Sami Communication Ability: Impaired Special Certificate Dictator Required: No Beliefs That Will Affect Care: None marital status: Current Living Situation: Spouse How many Children do You have: 2 Feels Safe at Home: Yes Assistive Devices: None Review of Systems Review of Systems: Unobtainable due to cognitive status Physical Exam Physical Exam: General- adult elderly male seen in the ED, He has a chronic ill appearance. Head- atraumatic Eyes- PERRL, EOMI, anicteric ENT- oropharynx clear Neck- supple, no JVD, no adenopathy, no thyromegaly; Lungs- clear to auscultation and percussion Heart- regular rhythm rate is 40; Abdomen- normal bowel sounds, soft, nontender, no masses or hepatosplenomegaly Extremities-1+ pretibial edema, no calf tenderness; poor peripheral pulses intact, B/L onychomycotic nails Neuro- somnolent, oriented x 1 person; PERRL, EOMI; no facial palsy; no dysarthria; moves all extremities bilaterally Skin- warm & dry Results & Data Results & Data Vital Signs (Past 12 Hours) Vital Signs Temp Pulse Pulse Resp BP BP Pulse Ox 02/14/24 12:05 43 L 19 149/61 H 98 02/14/24 11:03 43 L 18 157/58 H 98 02/14/24 09:18 34 L 02/14/24 08:56 54 L 16 94 02/14/24 08:39 54 L 02/14/24 08:08 36.2 C L 54 L 16 142/73 H 94 O2 Del Method 02/14/24 12:05 Room Air 02/14/24 11:03 Room Air 02/14/24 09:18 02/14/24 08:56 Room Air 02/14/24 08:39 02/14/24 08:08 Room Air Laboratory Results Laboratory Results WBC 9.43 K/ul (4.8-10.8) 02/14/24 08:45 RBC 4.40 M/uL (4.70-6.10) L 02/14/24 08:45 Hgb 13.0 g/dl (14.0-18.0) L 02/14/24 08:45 Hct 39.9 % (42.0-52.0) L 02/14/24 08:45 MCV 90.7 fL (80.0-100.0) 02/14/24 08:45 MCH 29.5 pg (25.0-34.0) 02/14/24 08:45 MCHC 32.6 g/dL (32.0-36.0) 02/14/24 08:45 RDW Std Deviation 44.4 fL (36.4-46.3) 02/14/24 08:45 RDW Coeff of Mick 13.2 % (11.5-14.5) 02/14/24 08:45 Plt Count 241 K/uL (130-400) 02/14/24 08:45 MPV 9.5 fL (9.4-12.4) 02/14/24 08:45 Immature Gran % (Auto) 0.3 % 02/14/24 08:45 Neut % (Auto) 77.6 % 02/14/24 08:45 Lymph % (Auto) 10.8 % 02/14/24 08:45 Nicholas % (Auto) 9.9 % 02/14/24 08:45 Eos % (Auto) 0.8 % 02/14/24 08:45 Baso % (Auto) 0.6 % 02/14/24 08:45 Neut # (Auto) 7.31 K/uL (1.40-6.50) H 02/14/24 08:45 Lymph # (Auto) 1.02 K/uL (1.20-3.40) L 02/14/24 08:45 Nicholas # (Auto) 0.93 K/uL (0.11-0.59) H 02/14/24 08:45 Eos # (Auto) 0.08 K/uL (0.00-0.50) 02/14/24 08:45 Baso # (Auto) 0.06 K/uL (0.00-0.20) 02/14/24 08:45 Immature Gran # (Auto) 0.03 K/uL (0.01-0.20) 02/14/24 08:45 PT 10.8 Seconds (9.0-12.0) 02/14/24 08:45 INR 1.0 (0.9-1.1) 02/14/24 08:45 APTT 25 Seconds (21-31) 02/14/24 08:45 PTT Ratio 0.9 02/14/24 08:45 Sodium 134 mmol/L (136-145) L 02/14/24 08:45 Potassium 4.2 mmol/L (3.5-5.1) 02/14/24 08:45 Chloride 103 mmol/L (98-107) 02/14/24 08:45 Carbon Dioxide 26 mmol/L (21-32) 02/14/24 08:45 Anion Gap 5 (3-11) 02/14/24 08:45 BUN 14 mg/dl (6-23) 02/14/24 08:45 Creatinine 1.37 mg/dl (0.6-1.4) 02/14/24 08:45 Est Cr Clr Drug Dosing 37.7 ml/min 02/14/24 08:45 Est GFR ( Amer) 52.6 ml/min 02/14/24 08:45 Est GFR (Non-Af Amer) 45.4 ml/min 02/14/24 08:45 BUN/Creatinine Ratio 10.2 (10-20) 02/14/24 08:45 Glucose 106 mg/dl (70-99(Fasting)) H 02/14/24 08:45 POC Glucose 124 mg/dl (70-99) H 02/14/24 08:29 Lactate 1.1 mmol/L (0.4-2.0) 02/14/24 08:45 Calcium 8.9 mg/dl (8.6-10.3) 02/14/24 08:45 Magnesium 2.0 mg/dl (1.7-2.4) 02/14/24 08:45 Total Bilirubin 1.5 mg/dl (0.2-1.0) H 02/14/24 08:45 AST 13 U/L (13-39) 02/14/24 08:45 ALT 6 U/L (7-52) L 02/14/24 08:45 Alkaline Phosphatase 46 U/L (34-104) 02/14/24 08:45 Troponin I High Sens 23.5 pg/ml (0-20) H 02/14/24 10:26 B-Natriuretic Peptide 313 pg/ml (0-100) H 02/14/24 08:45 Total Protein 6.3 gm/dl (6.0-8.3) 02/14/24 08:45 Albumin 3.6 gm/dl (3.4-5.0) 02/14/24 08:45 Globulin 2.7 gm/dl (2.5-4.0) 02/14/24 08:45 Albumin/Globulin Ratio 1.3 (0.9-2) 02/14/24 08:45 Procalcitonin < 0.02 ng/ml (0-0.5) 02/14/24 08:45 Urine Color Yellow 02/14/24 08:40 Urine Appearance Clear (Clear) 02/14/24 08:40 Urine pH 6.0 (4.5-7.5) 02/14/24 08:40 Ur Specific [place] 1.022 (1.000-1.030) 02/14/24 08:40 Urine Protein 1+ (Negative) H 02/14/24 08:40 Urine Glucose (UA) Negative (Negative) 02/14/24 08:40 Urine Ketones Trace (Negative) H 02/14/24 08:40 Urine Blood 2+ (Negative) H 02/14/24 08:40 Urine Nitrite Negative (Negative) 02/14/24 08:40 Urine Bilirubin Negative (Negative) 02/14/24 08:40 Urine Urobilinogen Negative (Negative) 02/14/24 08:40 Ur Leukocyte Esterase Negative (Negative) 02/14/24 08:40 Urine WBC (Auto) 0-5 /hpf (0-5) 02/14/24 08:40 Urine RBC (Auto) >20 /hpf (0-2) H 02/14/24 08:40 U Hyaline Cast (Auto) 0-2 /lpf (0-2) 02/14/24 08:40 U Epithel Cells (Auto) 0-2 /hpf (0-2) 02/14/24 08:40 Urine Bacteria (Auto) None Seen (None Seen) 02/14/24 08:40 Adenovirus (PCR) Not Detected (NotDetected) 02/14/24 08:59 B. pertussis DNA (PCR) Not Detected (NotDetected) 02/14/24 08:59 B.parapertussis DNA PCR Not Detected (NotDetected) 02/14/24 08:59 C. pneumoniae DNA (PCR) Not Detected (NotDetected) 02/14/24 08:59 Coronavirus OC43 (PCR) Not Detected (NotDetected) 02/14/24 08:59 Coronavirus HKU1 (PCR) Not Detected (NotDetected) 02/14/24 08:59 Coronavirus 229E (PCR) Not Detected (NotDetected) 02/14/24 08:59 SARS-CoV-2 (PCR) Not Detected (NotDetected) 02/14/24 08:59 Coronavirus NL63 (PCR) Not Detected (NotDetected) 02/14/24 08:59 Human Metapneumovir PCR Not Detected (NotDetected) 02/14/24 08:59 Influenza Type A (PCR) Not Detected (NotDetected) 02/14/24 08:59 Influenza Type B (PCR) Not Detected (NotDetected) 02/14/24 08:59 M. pneumoniae (PCR) Not Detected (NotDetected) 02/14/24 08:59 Parainfluenza 1 (PCR) Not Detected (NotDetected) 02/14/24 08:59 Parainfluenza 2 (PCR) Not Detected (NotDetected) 02/14/24 08:59 Parainfluenza 3 (PCR) Not Detected (NotDetected) 02/14/24 08:59 Parainfluenza 4 (PCR) Not Detected (NotDetected) 02/14/24 08:59 RSV (PCR) Not Detected (NotDetected) 02/14/24 08:59 Entero/Rhino (PCR) Not Detected (NotDetected) 02/14/24 08:59 Impressions Chest X-Ray 02/14/24 08:51 XR chest 1V portable CLINICAL HISTORY: altered mental status TECHNIQUE: Single frontal radiograph of the chest was obtained. Comparison: Comparison is made to chest radiograph 12/27/2019 FINDINGS: No lines and tubes are seen. There is prominence of the right mediastinum. Aortic calcification is seen. The lungs are clear. No evidence of pleural effusion or pneumothorax. Incidental note is made of a skin fold on the left. IMPRESSION: Prominence of the right mediastinum is nonspecific, may be secondary to patient rotation however lymphadenopathy or severe pulmonary hypertension may appear similarly. If there is clinical concern CT chest can be performed. ACT 112: Negative or not required by law. Electronically signed by: Denilson Dawson M.D. 02/14/2024 9:[address] 02/14/24 08:51 CT head/brain wo con CLINICAL HISTORY: 88 years-old Male with confusion; fall from standing. Acutely altered mental status. Acute head trauma status post fall TECHNIQUE: Multiple axial CT images of the head were obtained without contrast. A dose lowering technique was utilized adhering to the principles of ALARA. CT DOSE: 1016.05 mGy.cm COMPARISON: None. FINDINGS: No acute intracranial hemorrhage, midline shift, intracranial mass, hydrocephalus, territorial ischemia or abnormal extra-axial collection. Involutional changes with chronic microvascular ischemic disease. The study is motion degraded and also limited secondary to positioning. Ex vacuo ventriculomegaly. The calvarium is intact. The paranasal sinuses, mastoid air cells, and middle ear cavities are clear. IMPRESSION: 1. Motion degraded exam without acute intracranial abnormality identified. 2. Involutional changes with chronic microvascular ischemic disease. ACT 112: Negative or not required by law. The above report was generated using voice recognition software. It may contain grammatical, syntax or spelling errors. Electronically signed by: Larry Gan M.D. 02/14/2024 9:24 AM Code Status & VTE Plan Code Status DNR/DNI VTE Prophylaxis Plan VTE Prophylaxis will be ordered: Yes
[2024-02-14 13:34] LABS: Troponin I High Sensitivity 21.7 pg/ml (0-20)
[2024-02-14] MEDS ORDERED: busPIRone 5 MG TAB PO PRN (14:00)
[2024-02-14] MEDS ORDERED: MAGNESIUM HYDROXIDE SUSP 30 ML UDC PO PRN (14:38)
[2024-02-14] MEDS ORDERED: POLYETHYLENE (MIRALAX) 17 GM PACK PO PRN (14:38)
[2024-02-14] MEDS: CITALOPRAM 20 MG TAB PO STA (15:02)
[2024-02-14] MEDS: SODIUM CHLORIDE 0.9% 1,000 ML IV SCH (15:09)
[2024-02-14] MEDS: LORazepam 1 MG TAB PO SCH (15:17)
--- NOTE | 2024-02-14 15:44 | Cardiology Consultation ---
Date of Consultation February 14, 2024 Assessment & Plan (1) Bradycardia: (2) Left bundle branch block: (3) Fall: (4) Elevated troponin: Plan 88-year-old male with significant senile dementia brought to the emergency room and hospitalized after worsening mental status and fall. 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 Will check thyroid function and Lyme titers Maintain telemetry Agree with reduction in gabapentin. Avoid AV node blocking drugs, Requip Echocardiogram to reassess LV systolic function as well as mediastinal enlargement (consider CT scan) Given chronic obstructive disease and bradycardia will add low-dose theophylline Keep n.p.o. after midnight Current CODE STATUS DNR/DNI Recommend discussing with family and [place] attorney degree of aggressiveness wished if pacemaker becomes indicated. Patient unable to contribute at this time History of Present Illness Reason for Consultation: Bradycardia, left bundle branch block Requesting Physician: Cecil stevenson Attending Physician: Guille Ortiz DO History of Present Illness Patient is an 88-year-old male with ongoing concerns per review of records and discussion 1. Senile dementia 2. 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 Remote history of nonischemic cardiomyopathy 4. Chronic obstructive lung disease Patient referred to emergency room services due to change in mental status, urinary incontinence Noted to be bradycardic on presentation with intermittent heart rates in the 30s and 40s. No high degree AV block though intermittent Mobitz type I in ass ociation with lowest heart rates. Little correlation with patient's symptoms and patient poor historian unable to offer additional information No recent cardiac evaluation EKG with chronic left bundle branch block first-degree AV block Chest x-ray with significant mediastinal enlargement on the right question secondary to uncoiling the aorta versus adenopathy Allergies Allergy/AdvReac Type Severity Reaction Status Date / Time Iodinated Contrast Media Allergy Unknown HIVES Verified 07/27/19 19:34 pseudoephedrine Allergy Unknown UNSURE OF Verified 07/27/19 19:34 RX? Sulfa (Sulfonamide Allergy Unknown DOES NOT Verified 07/27/19 19:34 Antibiotics) KNOW RX metoclopramide [From Reglan] AdvReac Severe MUSCLE Verified 07/27/19 19:33 TWITCHING atorvastatin AdvReac Intermediate Muscle Pain Verified 07/27/19 19:33 tramadol AdvReac psyche Verified 07/27/19 19:34 complications Home Medications Medication Instructions Recorded Confirmed Type acetaminophen 500 mg tablet 1,000 mg PO TID PRN Pain 05/20/19 07/27/19 History (Tylenol Extra Strength) albuterol sulfate 2.5 mg/3 mL 2.5 mg inhalation Q4 PRN Shortness 05/20/19 07/27/19 History (0.083 %) solution for nebulization Of Breath Or Wheezing aspirin 81 mg tablet,delayed 81 mg PO DAILY 05/20/19 07/27/19 History release (Aspir-) betamethasone, augmented 0.05 % 1 applic topical BID 05/20/19 07/27/19 History topical cream diclofenac sodium 1 % topical gel 4 g topical UD 05/20/19 07/27/19 History glucosamine 375 [id number]-zsquvzqlw-zga 1 tab PO UD 05/20/19 07/27/19 History no1 500 mg-C 15 mg-lamar 0.5 mg tablet (Kyvzckuctnz-Bwhnfrxixlz-IXR Complex) lorazepam 1 mg tablet (Ativan) 1 mg PO UD 05/20/19 07/27/19 History multivitamin 1 tab PO DAILY 05/20/19 07/27/19 History nitroglycerin 0.4 mg sublingual 0.4 mg sublingual UD PRN Chest Pain 05/20/19 07/27/19 History tablet sennosides 15 mg tablet (Ex-Lax 15 mg PO HS 05/20/19 07/27/19 History (sennosides)) telmisartan 40 mg tablet 20 mg PO DAILY 05/20/19 07/27/19 History triamcinolone acetonide 0.5 % 1 applic topical BID PRN AFFECTED 05/20/19 07/27/19 History topical cream AREA ON HANDS citalopram 40 mg tablet 40 mg PO DAILY 30 days #30 tabs 05/30/19 07/27/19 Rx hydrocodone 5 mg-acetaminophen 325 1 tab PO Q8H PRN pain #20 tabs 05/30/19 07/27/19 Rx mg tablet ropinirole 0.25 mg tablet 0.25 mg PO HS 30 days #30 tabs 05/30/19 07/27/19 Rx gabapentin 100 mg capsule 100 mg PO TID 07/27/19 07/27/19 History polyethylene glycol 3350 17 gram 17 g PO DAILY PRN Constipation 07/27/19 07/27/19 History oral powder packet (Miralax) folic acid 1 mg tablet 1 mg PO QAM #30 tabs 07/29/19 Rx nicotine 21 mg/24 hr daily 21 mg transdermal QAM #14 ea 07/29/19 Rx transdermal patch (Nicoderm CQ) thiamine HCl (vitamin B1) 100 mg 100 mg PO QAM #30 tabs 07/29/19 Rx tablet (Vitamin B-1) buspirone 10 mg tablet 10 mg PO BID PRN Agitation 02/14/24 History montelukast 10 mg tablet 10 mg PO DAILY 02/14/24 History Patient History Medical History Spinal stenosis Arthritis AAA (abdominal aortic aneurysm) Surgical History History of abdominal aortic aneurysm (AAA) repair Family History Other Family history non-contributory Social History Smoking Status: Current every day smoker Tobacco Type: Cigarettes and E-cigarettes / Vaping Cigarettes Per Day: 2-3 packs/day; Second Hand Exposure: No; Do You Dip or Chew Tobacco: No; Tobacco Cessation Education Requested by Patient: No Hx Alcohol Use: Yes Alcohol type: beer Hx Substance Use: No Preferred Language: Cantonese Italian Communication Ability: Impaired Parcel Post Weigher Required: No Beliefs That Will Affect Care: None marital status: Current Living Situation: Family How many Children do You have: 2 Other Information That Helps Us Care for You: No Feels Safe at Home: Yes Safety Concerns: Feels Safe At This Time Assistive Devices: None Review of Systems Review of Systems: Unobtainable due to cognitive status Physical Exam Constitutional: no acute distress Eyes: PERRL, conjunctivae normal, anicteric sclerae ENMT: external ear and nose normal, oropharynx normal Neck: trachea midline, no thyromegaly No palpable lymphadenopathy Respiratory: Auscultation: + diminished lung sounds; no rales and no wheezes Cardiovascular: Rate/Rhythm: regular rate and regular rhythm Heart Sounds: normal S1 and normal S2 Vessels: no JVD Extremities: no edema Gastrointestinal (Abdomen): normal bowel sounds, soft, nontender, no hepatosplenomegaly Psychiatric: Orientation: oriented to person Results & Data Vital Signs (Past 12 Hours) Vital Signs Temp Pulse Pulse Resp BP BP BP 02/14/24 15:26 36.5 C 44 L 19 164/69 H 02/14/24 12:05 43 L 19 149/61 H 02/14/24 11:03 43 L 18 157/58 H 02/14/24 09:18 34 L 02/14/24 08:56 54 L 16 02/14/24 08:39 54 L 02/14/24 08:08 36.2 C L 54 L 16 142/73 H Pulse Ox O2 Del Method 02/14/24 15:26 96 Room Air 02/14/24 12:05 98 Room Air 02/14/24 11:03 98 Room Air 02/14/24 09:18 02/14/24 08:56 94 Room Air 02/14/24 08:39 02/14/24 08:08 94 Room Air
[2024-02-14 16:29] LABS: Thyroid Stimulating Hormone 1.559 uIu/ml (0.300-4.500)
--- NOTE | 2024-02-14 16:47 | Electrocardiogram Report ---
Test Reason : Blood Pressure : */* mmHG Vent. Rate : 53 BPM Atrial Rate : 153 BPM P-R Int : * ms QRS Dur : 156 ms QT Int : 452 ms P-R-T Axes : 20 19 202 degrees QTcB Int : 424 ms Sinus tachycardia with 1st degree AV block Left bundle branch block Abnormal ECG When compared with ECG of 29-Jul-2019 07:11, T wave inversion now evident in Inferior leads T wave inversion now evident in Lateral leads Confirmed by Jad Slaughter ([id number]) on 02/14/2024 4:47:05 PM Referred By: Confirmed By: Jad Slaughter
[2024-02-14] MEDS: THEOPHYLLINE 400 MG EXTENDED REL TAB PO SCH (18:22)
[2024-02-14] MEDS: MONTELUKAST SODIUM 10 MG TABLET PO SCH (20:32)
[2024-02-14] MEDS: HEPARIN SOD 5,000 UNIT/0.5 ML VIAL SQ SCH (20:32)
[2024-02-15 08:19] LABS: Hematocrit (blood only) 39.1 % (42.0-52.0); Hemoglobin 12.8 g/dl (14.0-18.0); Mean Corpuscular Hemoglobin 29.4 pg (25.0-34.0); Mean Corpuscular Hgb Conc 32.7 g/dL (32.0-36.0); Mean Corpuscular Volume 89.7 fL (80.0-100.0); Mean Platelet Volume 9.5 fL (9.4-12.4); Platelet Count 232 K/uL (130-400); RDW Standard Deviation 42.7 fL (36.4-46.3); Red Blood Count 4.36 M/uL (4.70-6.10); White Blood Count 7.45 K/ul (4.8-10.8)
[2024-02-15 08:35] LABS: BUN Creatinine Ratio 14.3 (10-20); Calcium 8.7 mg/dl (8.6-10.3); Creatinine Clr Calc Pharmacy 46.2 ml/min; Est GFR (African American) 67.1 ml/min; Est GFR (Non-African American) 57.9 ml/min; Magnesium 2.1 mg/dl (1.7-2.4); Phosphorus 2.3 mg/dl (2.5-4.9); Potassium 3.8 mmol/L (3.5-5.1)
[2024-02-15] MEDS: ASPIRIN 81 MG ECTAB PO SCH (09:54)
[2024-02-15] MEDS: GABAPENTIN 100 MG CAP PO SCH ×2 (09:55→21:24)
--- NOTE | 2024-02-15 11:02 | Electrocardiogram Report ---
Test Reason : Blood Pressure : */* mmHG Vent. Rate : 57 BPM Atrial Rate : 57 BPM P-R Int : * ms QRS Dur : 166 ms QT Int : 512 ms P-R-T Axes : * 40 101 degrees QTcB Int : 498 ms Sinus bradycardia with 1st degree AV block and PVCs Left bundle branch block Abnormal ECG Confirmed by Jad Slaughter ([id number]) on 02/15/2024 11:02:21 AM Referred By: REFERRED SELF Confirmed By: Jad Slaughter
[2024-02-15] MEDS: NICOTINE 14 MG/24 HR PATCH TD SCH (11:22)
[2024-02-15] MEDS ORDERED: busPIRone 5 MG TAB PO PRN (12:14)
--- NOTE | 2024-02-15 12:14 | Hospitalist Progress Note ---
Date of Service February 15, 2024 Assessment & Plan (1) Dementia: (2) Fall: (3) AMS (altered mental status): Plan: Fall at home History of cognitive impairment Possible delirium in setting of cognitive impairment Cannot rule out head trauma as first fall was unwitnessed but daughter who came out to him on hearing the fall denied head trauma. Stated patient fell on buttock CT head did not show any acute abnormalities Seem to be back to baseline mental status Daughter reported ambulatory dysfunction after fall Will get PT/OT eval. May need SNF (4) Bradycardia: Plan: EKG showed sinus bradycardia, LBBB LBBB is not new TTE showed LV normal, mod conc LVH, mild to mod global hypokinesis of LV, mild focal hypokinesis of inf wall, EF 45-50%, Grade I DD, no significant valvular disease Telemetry showed sinus bradycardia with HR mostly in 50s Discussed with [employer] Dr Dao. He noted no significant changes in EKG when compared to prior and does not recommend further cardiac investigation at this time Recommends to continue theophylline started on admission (5) CKD (chronic kidney disease), stage III: Plan: Stable Avoid nephrotoxic agents Cr is 1.12 (6) CAD (coronary artery disease): Plan: Continue ASA (7) Anxiety: Plan: Continue lorazepam 3 times daily as at home (8) Smoker: Plan: Nicotine patch Code status: DNR Med rec done with daughter I spent a total of 50 minutes coordinating, documenting and providing care for this patient excluding time spent in performance of separately billed services Admission and Anticipated Discharge Date Admission Date: February 14, 2024 Subjective Patient seen and examined Alert and oriented to person, knows he is in [place], not oriented to time. No new complaints Limited ROS due to cognitive status Daughter reports at baseline, he is oriented to person, place, has cognitive impairment, walks independently Reported he had fallen on his buttock off the swing on Wednesday. No head trauma or LOC. Also had an incident of urinary incontinence which was unusual for him. Was unsteady at home No report of fever, chills, shortness of breath, vomiting, diarrhea Has chronic cough per daughter. Used to smoke up to 3ppd but now only vapes. Drinks beer abt 2/day. No illicit drug use Physical Exam Constitutional: + well hydrated; no acute distress Eyes: PERRL, conjunctivae normal, anicteric sclerae ENMT: external ear and nose normal, oropharynx normal Respiratory: normal respiratory effort, lungs clear to auscultation Cardiovascular: Rate/Rhythm: regular rhythm and + bradycardic Gastrointestinal (Abdomen): normal bowel sounds, soft, nontender, no hepatosplenomegaly Musculoskeletal: No pedal edema Neurologic: PERRL, EOMI, accommodation nl, no face palsy, no dysarthria Psychiatric: A+Ox3, euthymic affect Results & Data Results & Data Vital Signs (Past 12 Hours) Vital Signs Temp Pulse Pulse Resp BP Pulse Ox O2 Del Method 02/15/24 11:03 36.5 C 57 L 18 179/72 H 94 Room Air 02/15/24 08:00 54 L 02/15/24 07:23 36.4 C L 54 L 16 170/71 H 95 Room Air 02/15/24 02:38 36.5 C 48 L 18 150/66 H 94 Room Air Laboratory Results Abnormal lab results 02/14/24 02/15/24 02/15/24 Range/Units 20:50 02:35 07:58 RBC 4.36 L (4.70-6.10) M/uL Hgb 12.8 L (14.0-18.0) g/dl Hct 39.1 L (42.0-52.0) % Chloride 109 H (98-107) mmol/L Phosphorus 2.3 L (2.5-4.9) mg/dl Troponin I High Sens 20.2 H 21.8 H (0-20) pg/ml
--- NOTE | 2024-02-15 14:13 | CT Scan Report ---
CT OF THE CHEST WITHOUT IV CONTRAST CLINICAL HISTORY: For better assessment of XR findings COMPARISON STUDY: Chest CT May 20, 2019. Chest radiograph February 14, 2024. CT DOSE: 964.27 mGy.cm TECHNIQUE: Axial images of the chest were obtained without IV contrast. Images were reviewed in the axial, sagittal, and coronal planes. IV contrast was not administered for this examination. Automat ed exposure control was utilized for the study. A dose lowering technique was utilized adhering to t he principles of ALARA. FINDINGS: Right mediastinal prominence on chest radiograph of February 14, 2024 was artifactual and related to a rotated study. No enlarged axillary, mediastinal or hilar lymph nodes are present. Ther e is mild cardiomegaly and a trace pericardial effusion. Small left and trace right pleural effusions are present. Calcified pleural plaques are noted. There is severe emphysema. No pneumothorax. Subple ural lower lobe opacities represent atelectasis. There is no consolidation to suggest pneumonia. A koehler btle 1 cm groundglass nodule within the lingula on image 152 of [id number] of May 20, 2019. Lungs are suboptimally assessed due to respiratory motion. IMPRESSION: 1. No mediastinal mass or thoracic lymphadenopathy. Right mediastinal prominence on chest radiograph of February 14, 2024 was artifactual. 2. Small left and trace right pleural effusions. Associated subpleural opacities consistent with atel ectasis. No consolidation to suggest pneumonia. 3. Severe emphysema. 4. No change in a 1 cm groundglass lingular nodule since exam of May 20, 2019. This is of doubtful significance given stability. ACT 112: Negative or not required by law. Electronically signed by: Lan Gabriel M.D. 02/15/2024 2:12 PM
--- NOTE | 2024-02-15 15:07 | Cardiology Progress Note ---
Date of Service February 15, 2024 Assessment & Plan (1) Bradycardia: (2) Left bundle branch block: (3) Fall: (4) Elevated troponin: Plan 88-year-old male with significant senile dementia brought to the emergency room and hospitalized after worsening mental status and fall. 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 Will check thyroid function and Lyme titers Maintain telemetry Agree with reduction in gabapentin. Avoid AV node blocking drugs, Requip Echocardiogram to reassess LV systolic function as well as mediastinal enlargement (consider CT scan) Given chronic obstructive disease and bradycardia will add low-dose theophylline Keep n.p.o. after midnight Current CODE STATUS DNR/DNI 02/15/2024 No observed acute complaints Telemetry without high degree AV block Issues are as concerned 1. Sinus bradycardia with left bundle branch block first-degree AV block: No further high degree AV block in hospital. Uncertain whether prior observed second-degree AV block contributed to patient's symptoms. Would continue theophylline. No absolute indications for pacemaker insertion and would not pursue 2. Elevated troponin: Minimal elevation noted without evolution 3. Mild left ventricular dysfunction: Not significantly changed from prior studies 4. Senile dementia/cognitive impairment per primary service Admission and Anticipated Discharge Date Admission Date: February 14, 2024 Subjective Patient seen and personally examined Telemetry and chart reviewed Patient appears alert, brighter today but still with significant cognitive impairment Denies any focal complaint Telemetry reviewed. No further second or third-degree AV block. Baseline rhythm sinus with first-degree AV block, left bundle branch block with occasional ventricular ectopy rate in 50s. Lowest heart rates post PVC with increased R to R interval Review of Systems Review of Systems: All systems reviewed & are unremarkable except as noted in Subjective Physical Exam Constitutional: no acute distress Eyes: PERRL, conjunctivae normal, anicteric sclerae ENMT: external ear and nose normal, oropharynx normal Neck: trachea midline, no thyromegaly Respiratory: Auscultation: + diminished lung sounds; no rales and no wheezes Cardiovascular: Rate/Rhythm: regular rate, regular rhythm and + bradycardic Heart Sounds: normal S1 and normal S2 Vessels: no JVD Extremities: no edema Gastrointestinal (Abdomen): normal bowel sounds, soft, nontender, no hepatosp lenomegaly Skin: no rashes, warm and dry Psychiatric: Orientation: oriented to person Results & Data Vital Signs (Past 12 Hours) Vital Signs Temp Pulse Pulse Resp BP Pulse Ox O2 Del Method 02/15/24 11:03 36.5 C 57 L 18 179/72 H 94 Room Air 02/15/24 08:00 54 L 02/15/24 07:23 36.4 C L 54 L 16 170/71 H 95 Room Air Laboratory Results Laboratory Results - last 24 hr 02/14/24 02/14/24 02/14/24 08:56 12:16 20:50 WBC RBC Hgb Hct MCV MCH MCHC RDW Std Deviation RDW Coeff of Mick Plt Count MPV Sodium Potassium Chloride Carbon Dioxide Anion Gap BUN Creatinine Est Cr Clr Drug Dosing Est GFR ( Amer) Est GFR (Non-Af Amer) BUN/Creatinine Ratio Glucose Calcium Phosphorus Magnesium Troponin I High Sens 20.2 H TSH 1.559 Lyme Disease Screen Negative 02/15/24 02/15/24 02:35 07:58 WBC 7.45 RBC 4.36 L Hgb 12.8 L Hct 39.1 L MCV 89.7 MCH 29.4 MCHC 32.7 RDW Std Deviation 42.7 RDW Coeff of Mick 13.0 Plt Count 232 MPV 9.5 Sodium 139 Potassium 3.8 Chloride 109 H Carbon Dioxide 27 Anion Gap 3 BUN 16 Creatinine 1.12 Est Cr Clr Drug Dosing 46.2 Est GFR ( Amer) 67.1 Est GFR (Non-Af Amer) 57.9 BUN/Creatinine Ratio 14.3 Glucose 99 Calcium 8.7 Phosphorus 2.3 L Magnesium 2.1 Troponin I High Sens 21.8 H TSH Lyme Disease Screen
[2024-02-15] MEDS: POT PHOSPHATE MONOBASIC W/ SOD TAB PO ONE (15:22)
[2024-02-15] MEDS ORDERED: OLANZapine 10 MG/2.1 ML SDV IM PRN (20:55)
[2024-02-15] MEDS: KETOROLAC TROMETHAMINE 15 MG/ML VIAL IV ONE (21:22)
[2024-02-15] MEDS: CITALOPRAM 20 MG TAB PO SCH (21:24)
[2024-02-16 10:31] LABS: Hematocrit (blood only) 36.2 % (42.0-52.0); Hemoglobin 12.7 g/dl (14.0-18.0); Mean Corpuscular Hemoglobin 30.7 pg (25.0-34.0); Mean Corpuscular Hgb Conc 35.1 g/dL (32.0-36.0); Mean Corpuscular Volume 87.4 fL (80.0-100.0); Mean Platelet Volume 9.8 fL (9.4-12.4); Platelet Count 245 K/uL (130-400); RDW Standard Deviation 41.6 fL (36.4-46.3); Red Blood Count 4.14 M/uL (4.70-6.10); White Blood Count 7.78 K/ul (4.8-10.8)
[2024-02-16 10:47] LABS: BUN Creatinine Ratio 14.5 (10-20); Calcium 8.6 mg/dl (8.6-10.3); Creatinine Clr Calc Pharmacy 39.5 ml/min; Est GFR (African American) 55.6 ml/min; Est GFR (Non-African American) 47.9 ml/min; Phosphorus 2.8 mg/dl (2.5-4.9); Potassium 3.4 mmol/L (3.5-5.1)
[2024-02-16 11:02] LABS: Appearance Urine Clear (Clear); Bacteria Urine Automated None Seen (None Seen); Bilirubin Urine Negative (Negative); Blood Urine Negative (Negative); Cast Urine Automated 0-2 /lpf (0-2); Color Urine Yellow; Epithelial Cell Urine Auto 0-2 /hpf (0-2); Glucose Urine UA Negative (Negative); Ketones Urine Negative (Negative); Leukocyte Esterase Urine Negative (Negative); Nitrite Urine Negative (Negative); Protein Urine Trace (Negative); Urobilinogen Urine Negative (Negative); WBC Urine Automated 0-5 /hpf (0-5); pH Urine 6.5 (4.5-7.5)
--- NOTE | 2024-02-16 11:47 | Cardiology Progress Note ---
Date of Service February 16, 2024 Assessment & Plan (1) Bradycardia: (2) Left bundle branch block: (3) Fall: (4) Elevated troponin: Plan 88-year-old male with significant senile dementia brought to the emergency room and hospitalized after worsening mental status and fall. 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 Will check thyroid function and Lyme titers Maintain telemetry Agree with reduction in gabapentin. Avoid AV node blocking drugs, Requip Echocardiogram to reassess LV systolic function as well as mediastinal enlargement (consider CT scan) Given chronic obstructive disease and bradycardia will add low-dose theophylline Keep n.p.o. after midnight Current CODE STATUS DNR/DNI 02/15/2024 No observed acute complaints Telemetry without high degree AV block Issues are as concerned 1. Sinus bradycardia with left bundle branch block first-degree AV block: No further high degree AV block in hospital. Uncertain whether prior observed second-degree AV block contributed to patient's symptoms. Would continue theophylline. No absolute indications for pacemaker insertion and would not pursue 2. Elevated troponin: Minimal elevation noted without evolution 3. Mild left ventricular dysfunction: Not significantly changed from prior studies 4. Senile dementia/cognitive impairment per primary service 02/16/2024 Findings as above. No further signs of worsening conduction system disease or high degree AV block. Certainly at risk for such but no acute indications for pacemaker insertion Continue plans as outlined Concerns raised regarding patient's ability to function independently Admission and Anticipated Discharge Date Admission Date: February 14, 2024 Subjective Patient seen and examined chart and telemetry reviewed Patient does not verbalize any complaints but historically unreliable Ambulatory in room with safety precautions Telemetry with sinus bradycardia with first-degree AV block, left bundle branch block heart rate predominantly in the 50s occasionally low 40s at night. Monitor signals of heart rate of 30 represent sinus rhythm with PVC and post compensatory pause. No high degree AV block or profound pauses Review of Systems Review of Systems: Unobtainable due to cognitive status Physical Exam Constitutional: no acute distress Eyes: PERRL, conjunctivae normal, anicteric sclerae ENMT: external ear and nose normal, oropharynx normal Neck: trachea midline, no thyromegaly Respiratory: Auscultation: + diminished lung sounds; no rales and no wheezes Cardiovascular: Rate/Rhythm: regular rate, regular rhythm and + bradycardic Heart Sounds: normal S1 and normal S2 Vessels: no JVD Extremities: no edema Gastrointestinal (Abdomen): normal bowel sounds, soft, nontender, no hepatosplenomegaly Skin: no rashes, warm and dry Psychiatric: Orientation: oriented to person Results & Data Vital Signs (Past 12 Hours) Vital Signs Temp Pulse Resp BP Pulse Ox O2 Del Method 02/16/24 07:38 36.7 C 54 L 17 143/53 H 95 Room Air
--- NOTE | 2024-02-16 14:40 | Hospitalist Progress Note ---
Date of Service February 16, 2024 Assessment & Plan (1) Dementia: (2) Fall: (3) AMS (altered mental status): Plan: Fall at home History of cognitive impairment Possible delirium in setting of cognitive impairment Cannot rule out head trauma as first fall was unwitnessed but daughter who came out to him on hearing the fall denied head trauma. Stated patient fell on buttock CT head did not show any acute abnormalities PT/OT, currently awaiting placement (4) Bradycardia: Plan: EKG showed sinus bradycardia, LBBB LBBB is not new TTE showed LV normal, mod conc LVH, mild to mod global hypokinesis of LV, mild focal hypokinesis of inf wall, EF 45-50%, Grade I DD, no significant valvular disease Telemetry showed sinus bradycardia with HR mostly in 50s Cardiology consulted, appreciate recs -no need for pacemaker at this time -continue theophylline (5) CKD (chronic kidney disease), stage III: Plan: Stable Avoid nephrotoxic agents Continue to monitor (6) CAD (coronary artery disease): Plan: Continue ASA (7) Anxiety: Plan: Continue lorazepam 3 times daily as at home (8) Smoker: Plan: Nicotine patch Code status: DNR Med rec done with daughter Admission and Anticipated Discharge Date Admission Date: February 14, 2024 Subjective Patient was seen with sitter at bedside. Patient denied acute concerns. Actively moving in bed. Review of Systems Review of Systems: All systems reviewed & are unremarkable except as noted in Subjective Physical Exam Physical Exam: General: Alert, HEENT: NC/AT CV: RRR Resp: Breath sounds clear bilaterally, no increased effort of breathing. Abdomen: Soft Extremities: No edema in lower extremities bilaterally. Results & Data Results & Data Vital Signs (Past 12 Hours) Vital Signs Temp Pulse Pulse Resp BP BP Pulse Ox 02/16/24 14:34 56 L 02/16/24 11:52 36.7 C 64 18 123/63 97 02/16/24 07:38 36.7 C 54 L 17 143/53 H 95 O2 Del Method 02/16/24 14:34 02/16/24 11:52 Room Air 02/16/24 07:38 Room Air
[2024-02-16] MEDS: guaiFENesin 600 MG TABCR PO SCH (22:42)
[2024-02-17] MEDS: ACETAMINOPHEN 325 MG TAB PO PRN (00:31)
[2024-02-17 06:21] LABS: Hematocrit (blood only) 38.1 % (42.0-52.0); Hemoglobin 12.8 g/dl (14.0-18.0); Mean Corpuscular Hemoglobin 29.8 pg (25.0-34.0); Mean Corpuscular Hgb Conc 33.6 g/dL (32.0-36.0); Mean Corpuscular Volume 88.6 fL (80.0-100.0); Mean Platelet Volume 9.9 fL (9.4-12.4); Platelet Count 235 K/uL (130-400); RDW Standard Deviation 42.2 fL (36.4-46.3); White Blood Count 8.23 K/ul (4.8-10.8)
[2024-02-17 06:37] LABS: BUN Creatinine Ratio 14.8 (10-20); Creatinine Clr Calc Pharmacy 40.4 ml/min; Potassium 3.5 mmol/L (3.5-5.1)
--- NOTE | 2024-02-17 14:03 | Hospitalist Progress Note ---
Date of Service February 17, 2024 Assessment & Plan (1) Dementia: (2) Fall: (3) AMS (altered mental status): Plan: Fall at home History of cognitive impairment Possible delirium in setting of cognitive impairment Cannot rule out head trauma as first fall was unwitnessed but daughter who came out to him on hearing the fall denied head trauma. Stated patient fell on buttock CT head did not show any acute abnormalities PT/OT, currently awaiting placement (4) Bradycardia: Plan: EKG showed sinus bradycardia, LBBB LBBB is not new TTE showed LV normal, mod conc LVH, mild to mod global hypokinesis of LV, mild focal hypokinesis of inf wall, EF 45-50%, Grade I DD, no significant valvular disease Telemetry showed sinus bradycardia with HR mostly in 50s Cardiology consulted, appreciate recs -no need for pacemaker at this time -continue theophylline (5) CKD (chronic kidney disease), stage III: Plan: Stable Avoid nephrotoxic agents Continue to monitor (6) CAD (coronary artery disease): Plan: Continue ASA (7) Anxiety: Plan: Continue lorazepam 3 times daily as at home (8) Smoker: Plan: Nicotine patch Code status: DNR Med rec done with daughter Admission and Anticipated Discharge Date Admission Date: February 14, 2024 Subjective Patient was seen with sitter at bedside. Sleeping soundly Review of Systems Review of Systems: All systems reviewed & are unremarkable except as noted in Subjective Physical Exam Physical Exam: General: sleeping HEENT: NC/AT CV: RRR Resp: Breath sounds clear bilaterally, no increased effort of breathing. Abdomen: Soft Extremities: No edema in lower extremities bilaterally. Results & Data Results & Data Vital Signs (Past 12 Hours) Vital Signs Temp Pulse Pulse Resp BP Pulse Ox O2 Del Method 02/17/24 10:54 36.9 C 55 L 20 130/52 L 96 Room Air 02/17/24 09:47 66 02/17/24 08:45 Room Air 02/17/24 08:43 36.7 C 62 18 177/75 H 96 Room Air 02/17/24 04:00 36.3 C L 60 16 176/74 H 96 Room Air
[2024-02-18 06:42] LABS: Hemoglobin 11.9 g/dl (14.0-18.0); Mean Corpuscular Hemoglobin 29.9 pg (25.0-34.0); Mean Corpuscular Hgb Conc 33.1 g/dL (32.0-36.0); Mean Corpuscular Volume 90.5 fL (80.0-100.0); Mean Platelet Volume 10.1 fL (9.4-12.4); Platelet Count 244 K/uL (130-400); RDW Coefficient of Variation 13.1 % (11.5-14.5); RDW Standard Deviation 43.2 fL (36.4-46.3); Red Blood Count 3.98 M/uL (4.70-6.10); White Blood Count 8.61 K/ul (4.8-10.8)
[2024-02-18 06:59] LABS: BUN Creatinine Ratio 12.1 (10-20); Calcium 8.9 mg/dl (8.6-10.3); Creatinine Clr Calc Pharmacy 34.7 ml/min; Magnesium 1.9 mg/dl (1.7-2.4); Phosphorus 3.3 mg/dl (2.5-4.9); Potassium 3.7 mmol/L (3.5-5.1)
[2024-02-18] MEDS: SODIUM CHLORIDE 0.9% 1,000 ML IV SCH (09:34)
--- NOTE | 2024-02-18 13:26 | Hospitalist Progress Note ---
Date of Service February 18, 2024 Assessment & Plan (1) Dementia: (2) Fall: (3) AMS (altered mental status): Plan: Fall at home History of cognitive impairment Possible delirium in setting of cognitive impairment Cannot rule out head trauma as first fall was unwitnessed but daughter who came out to him on hearing the fall denied head trauma. Stated patient fell on buttock CT head did not show any acute abnormalities PT/OT-was awaiting placement but now can go home with 24/7 care (4) Bradycardia: Plan: EKG showed sinus bradycardia, LBBB LBBB is not new TTE showed LV normal, mod conc LVH, mild to mod global hypokinesis of LV, mild focal hypokinesis of inf wall, EF 45-50%, Grade I DD, no significant valvular disease Telemetry showed sinus bradycardia with HR mostly in 50s Cardiology consulted, appreciate recs -no need for pacemaker at this time -continue theophylline (5) CKD (chronic kidney disease), stage III: Plan: Stable Avoid nephrotoxic agents Continue to monitor (6) CAD (coronary artery disease): Plan: Continue ASA (7) Anxiety: Plan: Continue lorazepam 3 times daily as at home (8) Smoker: Plan: Nicotine patch Code status: DNR Med rec done with daughter Admission and Anticipated Discharge Date Admission Date: February 14, 2024 Subjective Patient was seen with sitter at bedside. Hard of hearing Denied acute concerns Call placed to frantz Hamm and provided update and answered all her questions to the best of my ability. Call placed at about 4:50 PM Review of Systems Review of Systems: All systems reviewed & are unremarkable except as noted in Subjective Physical Exam Physical Exam: General: alert HEENT: NC/AT CV: RRR Resp: Breath sounds clear bilaterally, no increased effort of breathing. Abdomen: Soft Extremities: No edema in lower extremities bilaterally. Results & Data Results & Data Vital Signs (Past 12 Hours) Vital Signs Temp Pulse Resp BP BP Pulse Ox O2 Del Method 02/18/24 11:49 36.7 C 59 L 20 161/67 H 97 Room Air 02/18/24 07:00 36.5 C 50 L 16 142/60 H 95 Room Air 02/18/24 04:04 36.3 C L 58 L 18 150/62 H 94 Room Air
[2024-02-18] MEDS: ALUMINUM/MAGNESIUM SUSP 30 ML UDC PO PRN (21:12)
[2024-02-19 06:02] LABS: Hemoglobin 11.4 g/dl (14.0-18.0); Mean Corpuscular Hemoglobin 30.3 pg (25.0-34.0); Mean Corpuscular Hgb Conc 34.5 g/dL (32.0-36.0); Mean Corpuscular Volume 87.8 fL (80.0-100.0); Platelet Count 243 K/uL (130-400); RDW Standard Deviation 41.8 fL (36.4-46.3); Red Blood Count 3.76 M/uL (4.70-6.10); White Blood Count 7.24 K/ul (4.8-10.8)
[2024-02-19 06:17] LABS: BUN Creatinine Ratio 12.7 (10-20); Calcium 8.7 mg/dl (8.6-10.3); Creatinine Clr Calc Pharmacy 36.4 ml/min; Magnesium 1.9 mg/dl (1.7-2.4); Phosphorus 2.5 mg/dl (2.5-4.9); Potassium 3.3 mmol/L (3.5-5.1)
[2024-02-19] MEDS: POTASSIUM CHLORIDE CRTAB 20 MEQ TABCR PO STA (09:20)
--- NOTE | 2024-02-19 11:18 | XRay Report ---
XR chest 1V portable CLINICAL HISTORY: Cough. COMPARISON STUDY: Chest radiograph February 14, 2024. Chest CT February 15, 2024. FINDINGS: There is no pneumothorax. Small left and trace right pleural effusions are present. Hazy ri ght infrahilar opacity is noted. There is left basilar opacity. There is underlying emphysema. Calcif ied granuloma within the right upper lobe is incidentally noted. Cardiomediastinal silhouette is stab le. Pulmonary vascular congestion without overt pulmonary edema. IMPRESSION: 1. Small left and trace right pleural effusions. Left basilar and right infrahilar opacities which co uld reflect pneumonia or atelectasis. 2. Emphysema. 3. Pulmonary vascular congestion. ACT 112: Negative or not required by law. Electronically signed by: Lan Gabriel M.D. 02/19/2024 11:17 AM
--- NOTE | 2024-02-19 11:46 | Hospitalist Progress Note ---
Date of Service February 19, 2024 Assessment & Plan (1) Dementia: (2) Fall: (3) AMS (altered mental status): (4) Bradycardia: (5) CKD (chronic kidney disease), stage III: (6) CAD (coronary artery disease): (7) Anxiety: (8) Smoker: Plan Hay Shelton is an 88 y/o male who lives with his son and daughter and with a PMHX of tobacco abuse disorder(3PPD), ETOH abuse (heavy drinker in past but 0-1 beers a day for past several years), anxiety, dementia, IBS, hx GI bleed, hx S JONO, OA, second degree Type II AV block, BPH, CKD3a, AAA and hx of DVT who presented via EMS with concern for AMS. Dementia Fall AMS (altered mental status) Acute toxic/metabolic encephalopathy Fall at home History of cognitive impairment Possible delirium in setting of cognitive impairment Cannot rule out head trauma as first fall was unwitnessed but daughter who came out to him on hearing the fall denied head trauma. Stated patient fell on buttock CT head did not show any acute abnormalities Delirium precautions. Frequent reorientation, avoid sedating medications Pt with 1:1 sitter PT/OT-was awaiting placement but per current recs, can now can go home with 24/7 care. Daughter agreeable to taking him home however currently requesting delay in discharge due to her own medical issues. Cough Pt with acute cough development Respiratory panel on admission negative Repeat chest x-ray on with noted possible pneumonia Chest CT ordered to further evaluate Sputum culture ordered and pending Started on p.o. azithromycin and Augmentin, however consideration will be given to treatment for hospital-acquired pneumonia should CT chest confirm Bradycardia EKG showed sinus bradycardia, LBBB LBBB is not new TTE showed LV normal, mod conc LVH, mild to mod global hypokinesis of LV, mild focal hypokinesis of inf wall, EF 45-50%, Grade I DD, no significant valvular disease Telemetry showed sinus bradycardia with HR mostly in 50s Cardiology consulted, appreciate recs -no need for pacemaker at this time -continue theophylline continue to monitor on telemetry Hypokalemia Replete as needed GAYE on CKD creatinine acutely elevated Patient with infiltrated IV site, could not get IV fluids consistently the day before avoid nephrotoxic agents as able Will continue to monitor, continue IVF as able CAD (coronary artery disease) Continue ASA Anxiety Continue lorazepam 3 times daily as at home Tobacco use Nicotine patch Diet: HH DVT prophylaxis: Heparin SQ Code status: DNR Dispo: Currently home with daughter Admission and Anticipated Discharge Date Admission Date: February 14, 2024 Subjective patient was seen with sitter at bedside. Chronic cough, now more productive. however alert and oriented, no acute distress call placed to daughter in the a.m.a.m. States she is unable to take patient home today, requesting delay in discharge. Review of Systems Review of Systems: All systems reviewed & are unremarkable except as noted in Subjective Physical Exam Physical Exam: General: alert HEENT: NC/AT CV: RRR Resp: Breath sounds clear bilaterally, no increased effort of breathing. Coughing during exam Abdomen: Soft Extremities: No edema in lower extremities bilaterally. Results & Data Results & Data Vital Signs (Past 12 Hours) Vital Signs Temp Pulse Resp BP Pulse Ox O2 Del Method 02/19/24 07:45 36.4 C L 67 18 170/70 H 96 Room Air 02/19/24 05:58 36.4 C L 43 L 18 147/73 H 95 Room Air 02/19/24 03:12 36.8 C 67 16 137/69 93 Room Air Diagnostic Findings Chest X-Ray 02/14/24 08:51 XR chest 1V portable CLINICAL HISTORY: altered mental status TECHNIQUE: Single frontal radiograph of the chest was obtained. Comparison: Comparison is made to chest radiograph 12/27/2019 FINDINGS: No lines and tubes are seen. There is prominence of the right mediastinum. Aortic calcification is seen. The lungs are clear. No evidence of pleural effusion or pneumothorax. Incidental note is made of a skin fold on the left. IMPRESSION: Prominence of the right mediastinum is nonspecific, may be secondary to patient rotation however lymphadenopathy or severe pulmonary hypertension may appear similarly. If there is clinical concern CT chest can be performed. ACT 112: Negative or not required by law. Electronically signed by: Denilson Dawson M.D. 02/14/2024 9:[address] 02/14/24 08:51 CT head/brain wo con CLINICAL HISTORY: 88 years-old Male with confusion; fall from standing. Acutely altered mental status. Acute head trauma status post fall TECHNIQUE: Multiple axial CT images of the head were obtained without contrast. A dose lowering technique was utilized adhering to the principles of ALARA. CT DOSE: 1016.05 mGy.cm COMPARISON: None. FINDINGS: No acute intracranial hemorrhage, midline shift, intracranial mass, hydrocephalus, territorial ischemia or abnormal extra-axial collection. Involutional changes with chronic microvascular ischemic disease. The study is motion degraded and also limited secondary to positioning. Ex vacuo ventriculomegaly. The calvarium is intact. The paranasal sinuses, mastoid air cells, and middle ear cavities are clear. IMPRESSION: 1. Motion degraded exam without acute intracranial abnormality identified. 2. Involutional changes with chronic microvascular ischemic disease. ACT 112: Negative or not required by law. The above report was generated using voice recognition software. It may contain grammatical, syntax or spelling errors. Electronically signed by: Larry Gan M.D. 02/14/2024 9:[address] 02/15/24 11:45 CT OF THE CHEST WITHOUT IV CONTRAST CLINICAL HISTORY: For better assessment of XR findings COMPARISON STUDY: Chest CT May 20, 2019. Chest radiograph February 14, 2024. CT DOSE: 964.27 mGy.cm TECHNIQUE: Axial images of the chest were obtained without IV contrast. Images were reviewed in the axial, sagittal, and coronal planes. IV contrast was not administered for this examination. Automated exposure control was utilized for the study. A dose lowering technique was utilized adhering to the principles of ALARA. FINDINGS: Right mediastinal prominence on chest radiograph of February 14, 2024 was artifactual and related to a rotated study. No enlarged axillary, mediastinal or hilar lymph nodes are present. There is mild cardiomegaly and a trace pericardial effusion. Small left and trace right pleural effusions are present. Calcified pleural plaques are noted. There is severe emphysema. No pneumothorax. Subpleural lower lobe opacities represent atelectasis. There is no consolidation to suggest pneumonia. A subtle 1 cm groundglass nodule within the lingula on image 152 of [address] of May 20, 2019. Lungs are suboptimally assessed due to respiratory motion. IMPRESSION: 1. No mediastinal mass or thoracic lymphadenopathy. Right mediastinal prominence on chest radiograph of February 14, 2024 was artifactual. 2. Small left and trace right pleural effusions. Associated subpleural opacities consistent with atelectasis. No consolidation to suggest pneumonia. 3. Severe emphysema. 4. No change in a 1 cm groundglass lingular nodule since exam of May 20, 2019. This is of doubtful significance given stability. ACT 112: Negative or not required by law. Electronically signed by: Lan Gabriel M.D. 02/15/2024 2:12 PM Chest X-Ray 02/19/24 10:26 XR chest 1V portable CLINICAL HISTORY: Cough. COMPARISON STUDY: Chest radiograph February 14, 2024. Chest CT February 15, 2024. FINDINGS: There is no pneumothorax. Small left and trace right pleural effusions are present. Hazy right infrahilar opacity is noted. There is left basilar opacity. There is underlying emphysema. Calcified granuloma within the right upper lobe is incidentally noted. Cardiomediastinal silhouette is stable. Pulmonary vascular congestion without overt pulmonary edema. IMPRESSION: 1. Small left and trace right pleural effusions. Left basilar and right infrahilar opacities which could reflect pneumonia or atelectasis. 2. Emphysema. 3. Pulmonary vascular congestion. ACT 112: Negative or not required by law. Electronically signed by: Lan Gabriel M.D. 02/19/2024 11:17 AM
[2024-02-19] MEDS: AZITHROMYCIN 250 MG TAB PO SCH (18:13)
[2024-02-19] MEDS: AMOXICILLIN/CLAVULANATE 875 MG TAB PO SCH (18:13)
[2024-02-19] MEDS: LORATADINE 10 MG TAB PO ONE (21:37)
[2024-02-19] MEDS: diphenhydrAMINE 2%/ZINC 0.1% CREAM 28.4GM TUBE EXT PRN (21:43)
--- NOTE | 2024-02-19 23:55 | CT Scan Report ---
Exam(s): CT CHEST Without Contrast EXAM: CT Chest Without Intravenous Contrast CLINICAL HISTORY: Reason for exam: cough, f/u chest xr r/o pneumonia. TECHNIQUE: Axial computed tomography images of the chest without intravenous contrast. CTDI is 12 mGy and DLP is 384 mGy-cm. Automated exposure control was utilized for the study. A dose lowering technique was utilized adhering to the principles of ALARA. COMPARISON: No relevant prior studies available. FINDINGS: Lungs: Calcified granuloma at the RIGHT lung apex. Moderate centrilobular emphysema. No mass. No consolidation. Pleural space: Small LEFT pleural effusion. Calcified LEFT pleural plaques, correlate for history of asbestos exposure. No pneumothorax. Heart: Unremarkable. No cardiomegaly. No significant pericardial effusion. No significant coronary artery calcifications. Bones/joints: Degenerative changes of the spine. No acute fracture. No dislocation. Soft tissues: Unremarkable. Vasculature: Atherosclerotic changes of the aorta. No thoracic aortic aneurysm. Lymph nodes: Unremarkable. No enlarged lymph nodes. IMPRESSION: 1. Moderate centrilobular emphysema. 2. Small LEFT pleural effusion. 3. Calcified LEFT pleural plaques, correlate for history of asbestos exposure. Electronically signed by: Immanuel Jimenez MD 02/19/24 23:55 PM
[2024-02-20 06:03] LABS: Basophils % (auto) 1.3 %; Eosinophils # (auto) 0.39 K/uL (0.00-0.50); Eosinophils % (auto) 5.1 %; Hematocrit (blood only) 35.1 % (42.0-52.0); Hemoglobin 11.9 g/dl (14.0-18.0); Immature Granulocytes # (auto) 0.01 K/uL (0.01-0.20); Immature Granulocytes % (auto) 0.1 %; Lymphocytes # (auto) 1.38 K/uL (1.20-3.40); Lymphocytes % (auto) 17.9 %; Mean Corpuscular Hemoglobin 30.1 pg (25.0-34.0); Mean Corpuscular Hgb Conc 33.9 g/dL (32.0-36.0); Mean Corpuscular Volume 88.9 fL (80.0-100.0); Mean Platelet Volume 10.1 fL (9.4-12.4); Monocytes # (auto) 0.74 K/uL (0.11-0.59); Monocytes % (auto) 9.6 %; Platelet Count 252 K/uL (130-400); RDW Coefficient of Variation 13.2 % (11.5-14.5); RDW Standard Deviation 42.9 fL (36.4-46.3); Red Blood Count 3.95 M/uL (4.70-6.10); White Blood Count 7.72 K/ul (4.8-10.8)
[2024-02-20 06:20] LABS: BUN Creatinine Ratio 10.9 (10-20); Calcium 8.8 mg/dl (8.6-10.3); Creatinine Clr Calc Pharmacy 40.4 ml/min; Potassium 3.8 mmol/L (3.5-5.1)
--- NOTE | 2024-02-20 06:22 | Communication Note ---
Date of Service: February 20, 2024 Patient with 7 bts Vtach on the monitor. Asymptomatic as per RN. HR 51, BP 173/74. EKG as per my interpretation rate 55, sinus bradycardia, LAD, LFD, LBBB, QTc 488 AP NSVT Prolonged QTc Supplement K and mag Hold azithromycin for now
[2024-02-20 07:13] VITALS: RESP 20; TEMP 97.5; O2SAT 97
--- NOTE | 2024-02-20 12:56 | Hospitalist Progress Note ---
Date of Service February 20, 2024 Assessment & Plan (1) Dementia: (2) Fall: (3) AMS (altered mental status): (4) Bradycardia: (5) CKD (chronic kidney disease), stage III: (6) CAD (coronary artery disease): (7) Anxiety: (8) Smoker: Plan Hay Shelton is an 88 y/o male who lives with his son and daughter and with a PMHX of tobacco abuse disorder(3PPD), ETOH abuse (heavy drinker in past but 0-1 beers a day for past several years), anxiety, dementia, IBS, hx GI bleed, hx S JONO, OA, second degree Type II AV block, BPH, CKD3a, AAA and hx of DVT who presented via EMS with concern for AMS. Dementia Fall AMS (altered mental status) Acute toxic/metabolic encephalopathy Fall at home History of cognitive impairment Possible delirium in setting of cognitive impairment Cannot rule out head trauma as first fall was unwitnessed but daughter who came out to him on hearing the fall denied head trauma. Stated patient fell on buttock CT head did not show any acute abnormalities Delirium precautions. Frequent reorientation, avoid sedating medications Pt with 1:1 sitter PT/OT-was awaiting placement but per current recs, can now can go home with 24/7 care. Daughter agreeable to taking him home however currently requesting delay in discharge due to her own medical issues. Cough Pt with acute cough development Respiratory panel on admission negative Repeat chest x-ray on with noted possible pneumonia Chest CT ordered to further evaluate Sputum culture ordered and pending Started on p.o. azithromycin and Augmentin, however consideration will be given to treatment for hospital-acquired pneumonia should CT chest confirm Bradycardia EKG showed sinus bradycardia, LBBB LBBB is not new TTE showed LV normal, mod conc LVH, mild to mod global hypokinesis of LV, mild focal hypokinesis of inf wall, EF 45-50%, Grade I DD, no significant valvular disease Telemetry showed sinus bradycardia with HR mostly in 50s Cardiology consulted, appreciate recs -no need for pacemaker at this time -continue theophylline continue to monitor on telemetry Hypokalemia Replete as needed GAYE on CKD creatinine acutely elevated Patient with infiltrated IV site, could not get IV fluids consistently the day before avoid nephrotoxic agents as able Will continue to monitor, continue IVF as able CAD (coronary artery disease) Continue ASA Anxiety Continue lorazepam 3 times daily as at home Tobacco use Nicotine patch Diet: HH DVT prophylaxis: Heparin SQ Code status: DNR Dispo: Currently home with daughter Admission and Anticipated Discharge Date Admission Date: February 14, 2024 Physical Exam Physical Exam: General: alert HEENT: NC/AT CV: RRR Resp: Breath sounds clear bilaterally, no increased effort of breathing. Coughing during exam Abdomen: Soft Extremities: No edema in lower extremities bilaterally. Results & Data Results & Data Vital Signs (Past 12 Hours) Vital Signs Temp Pulse Pulse Resp BP Pulse Ox O2 Del Method 02/20/24 08:00 Room Air 02/20/24 07:27 51 L 02/20/24 07:12 36.4 C L 53 L 20 179/52 H 97 Room Air 02/20/24 06:19 36.6 C 51 L 14 173/74 H 96 Room Air 02/20/24 05:34 36.5 C 62 14 174/74 H 96 Room Air
--- NOTE | 2024-02-20 13:55 | Electrocardiogram Report ---
Test Reason : Blood Pressure : */* mmHG Vent. Rate : 56 BPM Atrial Rate : 56 BPM P-R Int : 344 ms QRS Dur : 166 ms QT Int : 506 ms P-R-T Axes : 44 2 102 degrees QTcB Int : 488 ms Sinus bradycardia with 1st degree A-V block with occasional Premature ventricular complexes Left bundle branch block Abnormal ECG When compared with ECG of 15-Feb-2024 05:32, No significant change Confirmed by Gabriel Mcbride ([id number]) on 02/20/2024 1:54:44 PM Referred By: REFERRED SELF Confirmed By: Gabriel Mcbride
--- NOTE | 2024-02-20 14:03 | Discharge Summary ---
Discharge Summary Date of Service February 20, 2024 Principal Dx & Hospital Course #1 = Principal Diagnosis (1) Dementia: (2) Fall: (3) AMS (altered mental status): (4) Bradycardia: (5) CKD (chronic kidney disease), stage III: (6) CAD (coronary artery disease): (7) Anxiety: (8) Smoker: Plan Hay Shelton is an 88 y/o male who lives with his son and daughter and with a PMHX of tobacco abuse disorder(3PPD), ETOH abuse (heavy drinker in past but 0-1 beers a day for past several years), anxiety, dementia, IBS, hx GI bleed, hx SBO, OA, second degree Type II AV block, BPH, CKD3a, AAA and hx of DVT who presented via EMS with concern for AMS. Dementia Fall AMS (altered mental status) Acute toxic/metabolic encephalopathy Fall at home History of cognitive impairment Possible delirium in setting of cognitive impairment Cannot rule out head trauma as first fall was unwitnessed but daughter who came out to him on hearing the fall denied head trauma. Stated patient fell on buttock CT head did not show any acute abnormalities Patient on chronic Ativan 1 mg 3 times daily scheduled as well as hydrocodone- acetaminophen use at home, likely contributory as well Delirium precautions. Frequent reorientation, avoid sedating medications Pt with 1:1 sitter inpt PT/OT-was awaiting placement but per current recs, can now can go home with 24/7 care. Daughter agreeable to taking him home for this 24/7 care. Hydrocodone-acetaminophen was held on discharge until PCP follow-up for alternative in the setting of daily benzodiazepine use and underlying dementia. Close PCP follow-up after discharge. Cough Pt with acute cough development Respiratory panel on admission negative Repeat chest x-ray on 02/19/2024 with noted possible pneumonia Chest CT ordered to further evaluate, Noted no pneumonia but emphysema, small LEFT pleural effusion and Calcified LEFT pleural plaques that should be correlated for history of asbestos exposure. Sputum culture was ordered but was not able to be collected. Started on p.o. azithromycin and Augmentin for possible bronchitis. However overnight patient with run of nonsustained V. tach and so azithromycin was discontinued. Patient was discharged with 6 more days of Augmentin. close PCP follow-up after discharge Bradycardia EKG showed sinus bradycardia, LBBB LBBB is not new TTE showed LV normal, mod conc LVH, mild to mod global hypokinesis of LV, mild focal hypokinesis of inf wall, EF 45-50%, Grade I DD, no significant valvular disease Telemetry showed sinus bradycardia with HR mostly in 50s Cardiology consulted, appreciate recs -no need for pacemaker at this time -continue theophylline 200mg daily As noted above, patient with episode of nonsustained V. tach overnight on 02/19/2024, was recently started on azithromycin for bronchitic symptoms which was held no further episodes. please ensure close cardiology follow-up after discharge Hypokalemia Repleted as needed pcp follow up for continued monitoring GAYE on CKD creatinine acutely elevated avoid nephrotoxic agents as able creatinine within normal limits on discharge CAD (coronary artery disease) Continue ASA Anxiety Continue lorazepam 3 times daily as at home Tobacco use Nicotine patch Notes For Next Care Provider HOLD HOME hydrocodone-acetaminophen in setting of altered mental status and benzodiazepine use and history of dementia. Consider alternative. Medication Changes From Visit HOLD HOME hydrocodone-acetaminophen in setting of altered mental status and benzodiazepine use and history of dementia. Consider alternative. Augmentin 875mg BID x 6 more days Per cardiology, theophylline 200mg daily Admission HPI Per Admitting Provider Hay Shelton is an 88 y/o male who loves with his son and daughter and with a PMHX of tobacco abuse disorder(3PPD), ETOH abuse(heavy drinker in past but 0-1 beers a day for past several years), anxiety, mild dementia, IBS, hx GI bleed, hx SBO, OA, second degree Type II AV block, BPH, CKD3a, AAA and hx of DVT. The pt presents via EMS for AMS. Daughter is present and states this started yesterday. He has dementia but is independent and usually oriented x 2. He was incontinent of urine x 1 which is unusual. He fell off his glider swing yesterday. No known head trauma or LOC per daughter. He finished an antibiotic(Keflex) two weeks ago for left big toe paronychia. In the ED CT scan of the head is negative for bleed. He was bradycardiac in the 30"s. He is not septic. CXR is clear. UA shows 2+ blood but no leukocytes. WBC is 9.43. Lactate is 1.1 Troponin is 23.5. Pt is referred for admission and further W/U Admission Exam Per Admitting Provider General- adult elderly male seen in the ED, He has a chronic ill appearance. Head- atraumatic Eyes- PERRL, EOMI, anicteric ENT- oropharynx clear Neck- supple, no JVD, no adenopathy, no thyromegaly; Lungs- clear to auscultation and percussion Heart- regular rhythm rate is 40; Abdomen- normal bowel sounds, soft, nontender, no masses or hepatosplenomegaly Extremities-1+ pretibial edema, no calf tenderness; poor peripheral pulses intact, B/L onychomycotic nails Neuro- somnolent, oriented x 1 person; PERRL, EOMI; no facial palsy; no dysarthria; moves all extremities bilaterally Skin- warm & dry Discharge Exam General: sleeping, resting comfortably HEENT: NC/AT CV: RRR Resp: Breath sounds clear bilaterally, no increased effort of breathing. Abdomen: Soft Extremities: No edema in lower extremities bilaterally. Updated Medication List Medication Instructions Recorded Confirmed Type acetaminophen 500 mg tablet 1,000 mg PO TID PRN Pain 05/20/19 02/15/24 History (Tylenol Extra Strength) aspirin 81 mg tablet,delayed 81 mg PO DAILY 05/20/19 02/15/24 History release (Aspir-) lorazepam 1 mg tablet (Ativan) See Rx Instructions .Route .COMPLEX 05/20/19 02/15/24 History gabapentin 100 mg capsule 100 mg PO PM 07/27/19 02/15/24 History polyethylene glycol 3350 17 gram 17 g PO DAILY PRN Constipation 07/27/19 02/15/24 History oral powder packet (Miralax) buspirone 10 mg tablet 10 mg PO HS PRN Agitation 02/14/24 02/15/24 History montelukast 10 mg tablet 10 mg PO DAILY 02/14/24 02/15/24 History citalopram 40 mg tablet 20 mg PO PM 02/15/24 02/15/24 History hydrocodone 5 mg-acetaminophen 325 See Rx Instructions .Route 02/15/24 02/15/24 History mg tablet .COMPLEX PRN pain amoxicillin 875 mg-potassium 1 tab PO BIDM #12 tabs 02/20/24 Rx clavulanate 125 mg tablet theophylline 400 mg 200 mg (1/2 x 400 mg) PO QAM #15 02/20/24 Rx tablet,extended release 24 hr tabs Hospital Stay Data Consultations 02/14/24 11:20 ED Decision to Admit Stat 02/14/24 14:38 Consult Cardiology Routine Diagnostic Imagining Performed 02/14/24 08:51 CT head/brain wo con Stat 02/15/24 11:45 CT chest diagnostic wo con Urgent 02/19/24 17:08 CT chest diagnostic wo con Urgent Chest X-Ray 02/14/24 08:51 XR chest 1V portable CLINICAL HISTORY: altered mental status TECHNIQUE: Single frontal radiograph of the chest was obtained. Comparison: Comparison is made to chest radiograph 12/27/2019 FINDINGS: No lines and tubes are seen. There is prominence of the right mediastinum. Aortic calcification is seen. The lungs are clear. No evidence of pleural effusion or pneumothorax. Incidental note is made of a skin fold on the left. IMPRESSION: Prominence of the right mediastinum is nonspecific, may be secondary to patient rotation however lymphadenopathy or severe pulmonary hypertension may appear similarly. If there is clinical concern CT chest can be performed. ACT 112: Negative or not required by law. Electronically signed by: Denilson Dawson M.D. 02/14/2024 9:[address] 02/14/24 08:51 CT head/brain wo con CLINICAL HISTORY: 88 years-old Male with confusion; fall from standing. Acutely altered mental status. Acute head trauma status post fall TECHNIQUE: Multiple axial CT images of the head were obtained without contrast. A dose lowering technique was utilized adhering to the principles of ALARA. CT DOSE: 1016.05 mGy.cm COMPARISON: None. FINDINGS: No acute intracranial hemorrhage, midline shift, intracranial mass, hydrocephalus, territorial ischemia or abnormal extra-axial collection. Involutional changes with chronic microvascular ischemic disease. The study is motion degraded and also limited secondary to positioning. Ex vacuo ventriculomegaly. The calvarium is intact. The paranasal sinuses, mastoid air cells, and middle ear cavities are clear. IMPRESSION: 1. Motion degraded exam without acute intracranial abnormality identified. 2. Involutional changes with chronic microvascular ischemic disease. ACT 112: Negative or not required by law. The above report was generated using voice recognition software. It may contain grammatical, syntax or spelling errors. Electronically signed by: Larry Gan M.D. 02/14/2024 9:[address] 02/15/24 11:45 CT OF THE CHEST WITHOUT IV CONTRAST CLINICAL HISTORY: For better assessment of XR findings COMPARISON STUDY: Chest CT May 20, 2019. Chest radiograph February 14, 2024. CT DOSE: 964.27 mGy.cm TECHNIQUE: Axial images of the chest were obtained without IV contrast. Images were reviewed in the axial, sagittal, and coronal planes. IV contrast was not administered for this examination. Automated exposure control was utilized for the study. A dose lowering technique was utilized adhering to the principles of ALARA. FINDINGS: Right mediastinal prominence on chest radiograph of February 14, 2024 was artifactual and related to a rotated study. No enlarged axillary, mediastinal or hilar lymph nodes are present. There is mild cardiomegaly and a trace pericardial effusion. Small left and trace right pleural effusions are present. Calcified pleural plaques are noted. There is severe emphysema. No pneumothorax. Subpleural lower lobe opacities represent atelectasis. There is no consolidation to suggest pneumonia. A subtle 1 cm groundglass nodule within the lingula on image 152 of [id number] of May 20, 2019. Lungs are suboptimally assessed due to respiratory motion. IMPRESSION: 1. No mediastinal mass or thoracic lymphadenopathy. Right mediastinal prominence on chest radiograph of February 14, 2024 was artifactual. 2. Small left and trace right pleural effusions. Associated subpleural opacities consistent with atelectasis. No consolidation to suggest pneumonia. 3. Severe emphysema. 4. No change in a 1 cm groundglass lingular nodule since exam of May 20, 2019. This is of doubtful significance given stability. ACT 112: Negative or not required by law. Electronically signed by: Lan Gabriel M.D. 02/15/2024 2:12 PM Chest X-Ray 02/19/24 10:26 XR chest 1V portable CLINICAL HISTORY: Cough. COMPARISON STUDY: Chest radiograph February 14, 2024. Chest CT February 15, 2024. FINDINGS: There is no pneumothorax. Small left and trace right pleural effusions are present. Hazy right infrahilar opacity is noted. There is left basilar opacity. There is underlying emphysema. Calcified granuloma within the right upper lobe is incidentally noted. Cardiomediastinal silhouette is stable. Pulmonary vascular congestion without overt pulmonary edema. IMPRESSION: 1. Small left and trace right pleural effusions. Left basilar and right infrahilar opacities which could reflect pneumonia or atelectasis. 2. Emphysema. 3. Pulmonary vascular congestion. ACT 112: Negative or not required by law. Electronically signed by: Lan Gabriel M.D. 02/19/2024 11:[address] 02/19/24 17:08 Exam(s): CT CHEST Without Contrast EXAM: CT Chest Without Intravenous Contrast CLINICAL HISTORY: Reason for exam: cough, f/u chest xr r/o pneumonia. TECHNIQUE: Axial computed tomography images of the chest without intravenous contrast. CTDI is 12 mGy and DLP is 384 mGy-cm. Automated exposure control was utilized for the study. A dose lowering technique was utilized adhering to the principles of ALARA. COMPARISON: No relevant prior studies available. FINDINGS: Lungs: Calcified granuloma at the RIGHT lung apex. Moderate centrilobular emphysema. No mass. No consolidation. Pleural space: Small LEFT pleural effusion. Calcified LEFT pleural plaques, correlate for history of asbestos exposure. No pneumothorax. Heart: Unremarkable. No cardiomegaly. No significant pericardial effusion. No significant coronary artery calcifications. Bones/joints: Degenerative changes of the spine. No acute fracture. No dislocation. Soft tissues: Unremarkable. Vasculature: Atherosclerotic changes of the aorta. No thoracic aortic aneurysm. Lymph nodes: Unremarkable. No enlarged lymph nodes. IMPRESSION: 1. Moderate centrilobular emphysema. 2. Small LEFT pleural effusion. 3. Calcified LEFT pleural plaques, correlate for history of asbestos exposure. Electronically signed by: Immanuel Jimenez MD 02/19/24 23:55 PM Pending Results Patient Have Any Pending Studies at Discharge: No Discharge Instructions Given to Patient (Per Discharging Provider) Hay, You are admitted and treated for altered mental status. It is likely that your symptoms were the result of polypharmacy in the setting of your known dementia. Please hold your home narcotic hydrocodone-acetaminophen until follow-up with your primary care provider. Continue with your home Ativan at this time. We also treated your cough with an antibiotic Augmentin. Please continue that for another 6 days. Concerning your slower heart rate, please keep follow-up with cardiology after discharge. Cardiology started you on the medication theophylline and recommends that you continue with it. Please take it as prescribed. Please also keep close follow up with your primary care provider after discharge. Please do not hesitate to come back to the emergency room if your symptoms worsen or return. It was a pleasure taking care of you while you were here. Total Time Total Time Spent Total Time Spent (In Minutes): 65
[2024-02-20 14:22] VITALS: BP 152/71
[2024-02-20 14:25] VITALS: PULSE 49
[2024-02-20] MEDS: POTASSIUM CHLORIDE PWD 20 MEQ PACK PO STA (14:40)
== END 2024-02-20 15:15 | disposition home or self-care (01) | DRG 947 ==
LOC: ED 08:23 → 4W 12:09 → SUATTDRO 12:09 → 4W 13:39 → 2W 02-16 21:34